=== PATIENT | male | born 1980 | race Caucasian/White ===

== ENCOUNTER 2022-05-05 17:30 | Emergency (ER) | payer BC, SELFPAY ==
[2022-05-05 17:32] VITALS: BP 116/90; PULSE 120; RESP 18; TEMP 39; O2SAT 95; BMI 36.3
[2022-05-05 17:36] VITALS: BP 116/90; PULSE 120; RESP 18; TEMP 39; O2SAT 95
[2022-05-05] MEDS: Acetaminophen 500 MG Tablet 1000 MG PO (18:06)
[2022-05-05 18:39] VITALS: O2SAT 96
--- NOTE | 2022-05-05 20:15 | EKG12_ITS ---
Test Reason : cp Blood Pressure : / mmHG Vent. Rate : 115 BPM Atrial Rate : 115 BPM P-R Int : 144 ms QRS Dur : 098 ms QT Int : 328 ms P-R-T Axes : 062 -60 033 degrees QTc Int : 453 ms Sinus tachycardia Left axis deviation Low voltage QRS (Limb Leads) Abnormal ECG Confirmed by DMITRIY SPARROW, PADILLA ([id number]), newspaper or periodical editor KRIS FERRARI ([id number]) on 05/08/2022 7:57:01 AM Referred By: Irasema Confirmed By:PADILLA IZAGUIRRE MD
--- NOTE | 2022-05-05 20:32 | EX.ED.DYSGE1 ---
HPI History of Present Illness Chief Complaint: Shortness of Breath Informant: patient Narrative Narrative: 3-day history fever headache cough diarrhea myalgias. COVID vaccinated x2 with no booster. States would not allow due to his history of ankylosing spondylitis receiving Cosentyx. diagnosed with COVID 4 days ago. Patient became symptomatic the following day. He is tolerating oral fluids. No COVID infections in the past. No dyspnea. Patient on Cosentyx, hydroxychloroquine, Wellbutrin, duloxetine, prazosin. 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 Arthritis Depression Home Medications nirmatrelvir 300 mg (150 mg x2)-ritonavir 100 mg tablet,dose pack(EUA) (Paxlovid) See Rx Instructions PO .COMPLEX #30 tabs 05/05/22 [Rx Last Taken Unknown] Allergy/AdvReac Type Severity Reaction Status Date / Time Sulfa (Sulfonamide Allergy Rash Verified 05/05/22 17:36 Antibiotics) Social History Smoking Status: Never smoker ROS ROS ED Constitutional Constitutional ED: Reports chills and fever(s); Denies sweats Eyes Eyes: Denies change in vision ENT ENT ED: Denies dysphagia or sore throat Cardiovascular Cardiovascular: Denies chest pain, leg edema, palpitations or racing heartbeat Respiratory/Chest Respiratory/Chest: Reports cough; Denies dyspnea or dyspnea on exertion Gastrointestinal Gastrointestinal: Reports diarrhea; Denies abdominal pain, nausea or vomiting Genitourinary Genitourinary ED: Denies dysuria, hematuria or urinary frequency Musculoskeletal Musculoskeletal: Denies back pain, extremity pain or neck pain Integumentary Denies rash or wounds Neurologic Neurologic: Reports headache(s); Denies paresthesias or weakness EXAM Physical Exam Const Vital Signs: 05/05/22 17:32 05/05/22 17:36 05/05/22 18:39 Temperature 102.2 F H 102.2 F H Temperature Source Oral Oral Pulse Rate 120 H 120 H Respiratory Rate 18 18 Respiratory Effort Normal Respiratory Depth Normal Respiratory Pattern Normal Blood Pressure 116/90 H 116/90 H Blood Pressure Mean 98 98 Pulse Ox 95 95 Oxygen Delivery Method Room Air Room Air Room Air Positive well nourished and well developed General Appearance ED: well developed and NAD HEENT Reports moist mucous membranes normocephalic and atraumatic Eyes PERRL, EOMs intact bilaterally and conjunctivae normal General Eye ED: Yes normal appearance of both eyes Neck no lymphadenopathy and supple Neck Narrative: No meningismus General: Negative for tenderness Chest Wall Chest: Negative for tenderness Resp normal respiratory effort and normal air movement Effort and Inspection: symmetric chest movement; Negative for respiratory distress Cardio regular rate, regular rhythm and no murmurs Peripheral Pulses: pulses 2+ throughout GI normal to inspection, nondistended, normoactive bowel sounds and non-tender Palpation: Negative for guarding or rebound tenderness present Back/Spine no CVA tenderness and no thoracic nor lumbar tenderness Extremity normal to inspection General Extremety ED: Negative for edema or tenderness General Extremity: Negative for edema Neuro oriented x3 and no sensory deficits noted Sensorium / Orientation: awake and alert Skin no rashes or lesions noted and no wounds MDM MDM MDM Narrative Medical decision making narrative: Patient febrile on arrival tachycardic. He is not hypoxic. No respiratory distress. Tylenol given from triage COVID testing obtained which was positive. He is day 3. Immunocompromise. He is a candidate for treatment. He has no history of kidney injury. Reviewed his medications, will hold his prazosin while taking this medications. He is okay with his other medications as reviewed. Return precaution discussed. Continue Tylenol and Motrin at home. All questions were answered. EKG Initial EKG: Attestation: I personally reviewed and interpreted this EKG as follows: Comments: Sinus rate of 115, no ST or T wave changes. Discharge Plan Triage Chief Complaint: Shortness of Breath ED Provider: Ty Villalpando Dx/Rx/DC Orders Clinical Impression: COVID-19 virus infection, History of immunosuppression, History of ankylosing spondylitis, Fever Instructions: Coronavirus Disease 2019 (COVID-19): Caring for Yourself or Others, ED Fever Control (Adult) Prescriptions: New Paxlovid (EUA) 300 mg (150 mg x 2)-100 mg tablets,dose pack See Rx Instructions .ROUTE .COMPLEX Qty: 30 0RF Rx Instructions: take TWO 150 mg tablets of nirmatrelvir with ONE 100 mg tablet of ritonavir twice daily for 5 days Activity Restrictions/Additional Instructions: Hold your prazosin while taking Paxlovid. Continue Tylenol or Motrin. Continue oral fluids for hydration. Take medication as prescribed. Return if any worsening respiratory symptoms. Disposition Disposition: Home, Self Care Discharge Date/Time: 05/05/22 20:50
== END 2022-05-05 20:50 | disposition home or self-care (01) ==
PROVIDERS: Emergency Provider Emergency Medicine; Visit Provider Emergency Medicine
DX: U07.1 COVID-19 (principal); M45.9 Ankylosing spondylitis of unspecified sites in spine; R50.9 Fever, unspecified; Z20.822 Contact with and (suspected) exposure to COVID-19; F32.A Depression, unspecified
CPT/HCPCS: 87428; 93005; 99284

== ENCOUNTER 2024-08-19 10:55 | Emergency (ER) | payer OTHER, SELFPAY ==
[2024-08-19 10:55] VITALS: BP 151/88; PULSE 94; RESP 14; TEMP 36.8; O2SAT 97
--- NOTE | 2024-08-19 11:11 | VDLE_ITS ---
Reason For Study: Pain LLE RIGHT LEFT CFV is compressible, spontaneous, phasic, GSV is normal. competent and demonstrates normal CFV is compressible, spontaneous, phasic, augmentation. competent, and demonstrates normal Procedure augmentation. This is a venous duplex using B-mode, color FV is compressible, spontaneous, phasic, flow and spectral Doppler. competent and demonstrates normal Exam performed portable in ED. augmentation. A preliminary report was called and/or faxed Acute deep vein thrombosis is noted in the to Viki XIAO. POP V. It is dilated and NONCOMPRESSIBLE. Acute deep vein thrombosis is noted in the T/P Trunk. It is dilated and NONCOMPRESSIBLE. Acute deep vein thrombosis is noted in the PTV. It is dilated and NONCOMPRESSIBLE. Acute deep vein thrombosis is noted in the Per V. It is dilated and NONCOMPRESSIBLE. Acute deep vein thrombosis is noted in the SoleusV. It is dilated and NONCOMPRESSIBLE. VL/Venous Duplex US, Unilateral Interpretation Summary Acute deep vein thrombosis is noted in the left popliteal vein, tibioperoneal t runk vein, posterior tibial vein, peroneal vein, soleus vein. Ordering Physician: Viki Stone Performed By: Tessie Lopez, AMY, RVT
--- NOTE | 2024-08-19 11:12 | ED.VIS.LOWEX ---
HPI <NINOSKA Rojas - Last Filed: 08/19/24 14:31> History of Present Illness Chief Complaint: Lower Extremity Injury Narrative Narrative: Patient presenting today with concerns for a blood clot to his left lower extremity. He reports that over the past 3 to 4 days he has had pain in his left calf that radiates to the posterior aspect of his left knee. 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 He recently had a bone marrow aspirate concentrate injection into his left ankle due to only history of repeated left ankle injuries and chronic left ankle pain. The bone marrow was taken from his left perez and this was performed 3 weeks ago at the [facility] by Dr. Slaughter. He denies any fevers, chills, chest pain, shortness of breath. PFSH <NINOSKA Rojas - Last Filed: 08/19/24 14:31> [facility] Medical History (Updated 08/19/24 @ 14:[address] 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 Home Medications ?Medication ?Instructions ?Recorded ?Last Taken ?Type nirmatrelvir 300 mg (150 mg See Rx Instructions PO .COMPLEX 05/05/22 Unknown Rx x2)-ritonavir 100 mg tablet,dose #30 tabs pack (Paxlovid) apixaban 5 mg (74 tabs) tablets in See Rx Instructions PO .COMPLEX 08/19/24 Unknown Rx a dose pack (Eliquis DVT-PE Treat #74 tabs 30D Start) hydrocodone-acetaminophen 5-325mg 1 tab PO Q4H PRN PRN Pain 3 days 08/19/24 Unknown Rx 5mg-325mg #10 TABLETS Allergy/AdvReac Type Severity Reaction Status Date / Time Sulfa (Sulfonamide Allergy Rash Verified 08/19/24 10:56 Antibiotics) Surgical History (Updated 08/19/24 @ 11:20 by Gloria Ross) H/O arthroscopy Social History Smoking Status: Never smoker ROS <NINOSKA Rojas - Last Filed: 08/19/24 14:31> ROS ED Constitutional Constitutional ED: Denies chills or fever(s) Cardiovascular Cardiovascular: Denies chest pain Respiratory/Chest Respiratory/Chest: Denies dyspnea Gastrointestinal Gastrointestinal: Denies abdominal pain, nausea or vomiting Musculoskeletal Musculoskeletal: Reports myalgias Integumentary Denies rash Neurologic Neurologic: Denies paresthesias EXAM <NINOSKA Rojas - Last Filed: 08/19/24 14:31> Physical Exam Const Vital Signs: 08/19/24 10:55 08/19/24 12:47 Temperature 98.3 F 98.2 F Temperature Source Temporal Pulse Rate 94 81 Respiratory Rate 14 18 Blood Pressure 151/88 H 125/72 H Blood Pressure Mean 109 89 Pulse Ox 97 99 Oxygen Delivery Method Room Air Positive well nourished, well developed and no apparent distress General Appearance ED: well developed HEENT Reports normocephalic and head/scalp atraumatic Mouth ED: Yes moist mucous membranes normal Eyes PERRL and EOMs intact bilaterally Neck full ROM and supple Chest Wall inspection of chest normal Resp normal respiratory effort and clear to auscultation bilaterally Cardio regular rate and regular rhythm Back/Spine normal ROM and normal to inspection Extremity normal to inspection and full ROM Extremity Narrative: Positive Homans' sign on the left, no asymmetric edema to the bilateral lower extremities, no erythema, no palpable cord, left DP pulse 2+, good cap refill, sensation intact. Neuro oriented x3, CN's II-XII intact bilaterally, moves all extremities, no focal motor deficits and no sensory deficits noted Sensorium / Orientation: awake and alert Psych mental status grossly normal and thought process normal Skin no rashes or lesions noted and no wounds <Dr. Melvin Nagy MD - Last Filed: 08/19/24 14:36> Physical Exam Const Vital Signs: 08/19/24 10:55 08/19/24 12:47 Temperature 98.3 F 98.2 F Temperature Source Temporal Pulse Rate 94 81 Respiratory Rate 14 18 Blood Pressure 151/88 H 125/72 H Blood Pressure Mean 109 89 Pulse Ox 97 99 Oxygen Delivery Method Room Air MDM <NINOSKA Rojas - Last Filed: 08/19/24 14:31> [facility] MDM Narrative Medical decision making narrative: Patient presenting today with pain in his left lower extremity and has concerns for DVT. He has been immobilized in bed except for showering, eating, and going to the bathroom after having a bone marrow injection in his left ankle 3 weeks ago. He thinks that he has a clotting disorder. He does not complain of any chest pain or shortness of breath. He otherwise is well-appearing and in no acute distress. No findings of infection on exam. Venous duplex ultrasound obtained and shows a DVT from the popliteal vein down to the ankle. I did speak with Dr. Slaughter, he is comfortable with patient receiving Eliquis and he was given first dose here. He does not have any history of kidney disease. He was also given [place] for pain. I recommended he follow-up closely with his PCP. He will be discharged home in stable condition. I have personally performed a face to face assessment of the patient and have reviewed the EVER Note. I performed a substantive portion of the visit including all aspects of the following. My chavez findings include: History is remarkable for recent ankle surgery, 3 weeks ago. Patient presents because of pain in the proximal calf popliteal fossa. Patient presently denies pleuritic chest pain. He states over the last weeks had slight shortness of breath. He has also been less active and lying around . He states he is applying ice like he was instructed. He denies fever, chills night sweats. There is no history of trauma. Exam is vital signs are remarkable for an elevated blood pressure. Is not tachycardic, tachypneic or hypoxic. There is pain to palpation to popliteal fossa and proximal calf. There may be slight swelling. There is no discoloration. There is no obvious leg vein distention. There was no palpable cords. PT pulses palpable. Port sites noted as well as bone marrow graft site. There is no concern for infection. Medical Decision Making pretest probability is moderate to high for DVT. For this reason venous duplex study was obtained to evaluate for DVT. Other additions or changes: [None] <Dr. Melvin Nagy MD - Last Filed: 08/19/24 14:36> [facility] Narrative Medical decision making narrative: Patient presenting today with pain in his left lower extremity and has concerns for DVT. He has been immobilized in bed except for showering, eating, and going to the bathroom after having a bone marrow injection in his left ankle 3 weeks ago. He thinks that he has a clotting disorder. He does not complain of any chest pain or shortness of breath. He otherwise is well-appearing and in no acute distress. No findings of infection on exam. Venous duplex ultrasound obtained and shows a DVT from the popliteal vein down to the ankle. I did speak with Dr. Slaughter, he is comfortable with patient receiving Eliquis and he was given first dose here. He does not have any history of kidney disease. He was also given [place] for pain. I recommended he follow-up closely with his PCP. He will be discharged home in stable condition. I have personally performed a face to face assessment of the patient and have reviewed the EVER Note. I performed a substantive portion of the visit including all aspects of the following. My chavez findings include: History is remarkable for recent ankle surgery, 3 weeks ago. Patient presents because of pain in the proximal calf popliteal fossa. Patient presently denies pleuritic chest pain. He states over the last weeks had slight shortness of breath. He has also been less active and lying around . He states he is applying ice like he was instructed. He denies fever, chills night sweats. There is no history of trauma. Exam is vital signs are remarkable for an elevated blood pressure. Is not tachycardic, tachypneic or hypoxic. There is pain to palpation to popliteal fossa and proximal calf. There may be slight swelling. There is no discoloration. There is no obvious leg vein distention. There was no palpable cords. PT pulses palpable. Port sites noted as well as bone marrow graft site. There is no concern for infection. Medical Decision Making pretest probability is moderate to high for DVT. For this reason venous duplex study was obtained to evaluate for DVT. Other additions or changes: Dr. Slaughter the orthopedist who performed the procedure at [facility] was made aware. Discharge Plan Triage Chief Complaint: Lower Extremity Injury ED Midlevel Provider: Viki Stone ED Provider: Melvin Nagy Dx/Rx/DC Orders Clinical Impression: Acute deep vein thrombosis (DVT) of popliteal vein of left lower extremity, Acute deep vein thrombosis (DVT) of left lower extremity, Elevated blood-pressure reading without diagnosis of hypertension Instructions: DVT Dc Prescriptions: New Eliquis DVT-PE Treat 30D Start 5 mg (74 tabs) tablets,dose pack See Rx Instructions .ROUTE .COMPLEX Qty: 74 0RF Rx Instructions: orally per package directions hydrocodone-acetaminophen 5-325 mg tablet 1 tab PO Q4H PRN PRN (Reason: Pain) 3 Days Qty: 10 0RF No Action Paxlovid 300 mg (150 mg x 2)-100 mg tablets,dose pack See Rx Instructions .ROUTE .COMPLEX Qty: 30 0RF Rx Instructions: take TWO 150 mg tablets of nirmatrelvir with ONE 100 mg tablet of ritonavir twice daily for 5 days Primary Care Provider: Nadya Grimes Activity Restrictions/Additional Instructions: Follow-up with your PCP and Dr. Slaughter. Return for any other concerns. Print Language: Faroese Disposition Disposition: Home, Self Care Discharge Date/Time: 08/19/24 12:58
[2024-08-19 11:20] VITALS: BMI 39.9
[2024-08-19] MEDS: APIXABAN 5 MG TABLET 10 MG PO (12:42)
[2024-08-19] MEDS: HYDROcodone Bitartrate/Apap 5/325 Tablet PO (12:43)
[2024-08-19 12:47] VITALS: BP 125/72; PULSE 81; RESP 18; TEMP 36.8; O2SAT 99
== END 2024-08-19 12:58 | disposition home or self-care (01) ==
PROVIDERS: Emergency Provider Emergency Medicine; PCP Family Medicine; Visit Provider Emergency Medicine
DX: I82.432 Acute embolism and thrombosis of left popliteal vein (principal); R03.0 Elevated blood-pressure reading, without diagnosis of hypertension
CPT/HCPCS: 93971; 99283

== ENCOUNTER 2025-02-17 16:50 | Emergency (ER) | payer OTHER, SELFPAY ==
[2025-02-17] VITALS (7 sets, daily range): BP systolic 105–133; BP diastolic 74–102; PULSE 81–107; RESP 16–25; TEMP 36.6–37.1; O2SAT 95–99; BMI 40.3
--- NOTE | 2025-02-17 18:27 | EKG12_ITS ---
Test Reason : CP Blood Pressure : */* mmHG Vent. Rate : 97 BPM Atrial Rate : 97 BPM P-R Int : 148 ms QRS Dur : 106 ms QT Int : 364 ms P-R-T Axes : 56 -54 53 degrees QTcB Int : 462 ms Sinus rhythm with sinus arrhythmia with occasional Premature ventricular complexes Left axis deviation Abnormal ECG Confirmed by RADHA SPARROW, MADDI ([id number]), editor department KRIS FERRARI ([id number]) on 02/20/2025 7:39:28 AM Referred By: PRITI/IRISH Confirmed By: MADDI GARCIA MD
--- NOTE | 2025-02-17 18:30 | RAD_ITS ---
PROCEDURE: CHEST 1 VIEW (PORTABLE) 02/17/2025 REASON FOR EXAM: CHEST PAIN TECHNIQUE: Frontal view of the chest. COMPARISON: None. FINDINGS: Hardware: None. Heart: The heart size is normal. Lungs: No focal consolidation, pleural effusion or pneumothorax. Bones: The bones are unremarkable. RAD/Chest 1 View (Portable) IMPRESSION: Negative Chest. Reading Location: [id number]
[2025-02-17 18:40] LABS: Absolute Lymphocyte Count 2.32 X10^3/uL (0.83-4.51); Absolute Neutrophil Count 3.8 X10^3/uL (2.0-7.7); Basophil# 0.05 X10^3/uL; Basophil% 0.7 % (0-1); Eosinophil# 0.07 X10^3/uL; Hemoglobin 14.4 g/dL (13.0-16.5); Lymphocyte # 2.32 X10^3/ul (0.83-4.51); Lymphocyte % 34.3 % (19-41); Mean Corp Hgb Conc 33.5 g/dL (32-36); Mean Corpuscular Hgb 29.3 pg (27.0-32.0); Mean Corpuscular Volume 87.4 fL (80-94); Mean Platelet Vol. 9.6 fl (6.2-12.0); Monocyte# 0.53 X10^3/uL; Monocyte% 7.8 % (0-10); NRBC Flagged by Analyzer 0 % (0-5); Neutrophil # 3.77 X10^3/uL (2.7-7.7); Neutrophil % 55.9 % (47-70); Platelet Count 282 K/mm3 (150-450); RBC Distribution Width CV 13.3 % (11.6-14.6); RBC Distribution Width SD 42.5 fl (35.1-43.9); Red Blood Count 4.92 M/mm3 (4.6-6.2); White Blood Count 6.8 K/mm3 (4.4-11.0)
[2025-02-17 19:08] LABS: Anion Gap 14 (5-15); BUN 14 mg/dL (4-19); BUN/Creat Ratio 12.2 RATIO (10-20); Calcium,Total 9.5 mg/dL (7.6-11.0); Carbon Dioxide 20.8 mmol/L (21.0-32.0); Chloride 105 mmol/L (98-108); Creatinine, Serum 1.15 mg/dL (0.70-1.20); EST Glomerular Filtration Rate 79 (>60); Estimated Creatinine Clearance 104.43 ml/min (50-250); Glucose 156 mg/dL (70-99); Potassium 4.1 mmol/L (3.3-5.1); Sodium Level 140 mmol/L (133-145); Troponin T High Sensitivity < 6 ng/L (<=22)
--- NOTE | 2025-02-17 19:14 | CT_ITS ---
PROCEDURE: CTA HEAD AND NECK W/ CONTRAST 02/17/2025 REASON FOR EXAM: DIZZINESS HEADACHE TECHNIQUE: CTA HEAD AND NECK W/ CONTRAST Multiplanar and multisequence images were obtained. CONTRAST: Isovue 370 VOLUME: 100 mL One or more dose reduction techniques were used (e.g., Automated exposure control, adjustment of the mA and/or kV according to patient size, use of iterative reconstruction technique). RADIATION DOSE SUMMARY: CTDlvol: 100 mGy DLP: 1700 mGycm COMPARISON: None. FINDINGS: Noncontrast CT head: No acute intracranial hemorrhage or herniation. The iqbal-white matter interfaces are maintained. The ventricles and subarachnoid spaces are normal for patient age. The basal cisterns are patent. The bilateral orbits are unremarkable. The visualized paranasal sinuses and mastoid air cells are well-aerated. No acute calvarial fracture or scalp hematoma. CTA neck: Standard three-vessel aortic arch with minimal mixed calcific plaque. The bilateral vertebral artery origins are widely patent. The bilateral cervical carotid arteries are widely patent without focal narrowing by NASCET criteria. CTA head: The bilateral anterior, middle and posterior cerebral arteries are widely patent. The basilar artery is patent. No aneurysm or AVM. Major venous structures: Unremarkable. Other findings: The biapical lungs are clear. Mild cervical spondylosis. CT/CTA Head AND Neck W/ Contrast IMPRESSION: 1. No acute intracranial finding on noncontrast examination. 2. No large vessel occlusion, aneurysm or AVM. Reading Location: [id number]
--- NOTE | 2025-02-17 19:15 | EX.ED.DYSGE1 ---
HPI History of Present Illness Chief Complaint: Chest Pain Informant: patient and spouse/S.O. Narrative Narrative: 44-year-old male presenting to the emergency room with chief complaint of lightheadedness and chest pressure. Patient states that he was having a relatively normal day. He went upstairs to get something and suddenly felt very lightheaded and weak. He states that he felt like he might pass out. He noted that his hearing in his ears was altered and developed a pressure/headache in the occiput. He states he was sweaty and a little bit nauseous. States his symptoms of lightheadedness have been intermittent since but the last since. He is on apixaban for prior DVT and has a history of factor V Leiden. He denies any palpitations. He denies any arm or leg weakness. 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 Home Medications ?Medication ?Instructions ?Recorded ?Last Taken ?Type apixaban 5 mg tablet (Eliquis) 5 mg PO BID 02/17/25 02/17/25 History bupropion HCl 150 mg 24 hr tablet, 150 mg PO DAILY 02/17/25 02/17/25 History extended release duloxetine 30 mg capsule,delayed 30 mg PO TID 02/17/25 02/17/25 History release Allergy/AdvReac Type Severity Reaction Status Date / Time Sulfa (Sulfonamide Allergy Rash Verified 02/17/25 16:52 Antibiotics) Family History no significant family his Surgical History H/O arthroscopy Social History Smoking Status: Never smoker ROS ROS ED ROS Narrative Lightheadedness Constitutional Constitutional ED: Denies chills or weight loss Eyes Eyes: Denies change in vision or diplopia ENT ENT ED: Reports other Details: Increased tinnitus today with sudden decrease in hearing ; Denies ear pain, rhinorrhea or sore throat Cardiovascular Cardiovascular: Reports chest pain; Denies orthopnea, palpitations or racing heartbeat Respiratory/Chest Respiratory/Chest: Denies cough, dyspnea or orthopnea Gastrointestinal Gastrointestinal: Reports nausea; Denies abdominal pain, diarrhea or vomiting Genitourinary Genitourinary ED: Denies dysuria, hematuria or urinary frequency Musculoskeletal Musculoskeletal: Denies arthralgias or myalgias Integumentary Reports other Details: Diaphoresis ; Denies abscess or rash Neurologic Neurologic: Reports headache(s); Denies paresthesias or weakness Psychiatric Psychiatric: Denies anxiety, depression, suicidal ideation or suicidal thoughts Endocrine Endocrinology: Denies polydipsia, polyphagia or polyuria Allergic/Immunologic Allergic/Immunologic ED: Denies mouth swelling, tongue swelling or urticaria EXAM Physical Exam Const Vital Signs: 02/17/25 16:50 02/17/25 17:03 02/17/25 17:50 Temperature 98 F Temperature Source Temporal Pulse Rate 107 H 99 Respiratory Rate 19 H Respiratory Effort Normal Non-Labored Blood Pressure 133/102 H 118/85 H Blood Pressure Mean 112 96 Pulse Ox 97 95 Oxygen Delivery Method Room Air Room Air 02/17/25 18:00 02/17/25 18:31 02/17/25 18:55 Temperature Temperature Source Pulse Rate 99 94 Respiratory Rate 16 Respiratory Effort Blood Pressure 118/85 H 105/80 Blood Pressure Mean 96 88 Pulse Ox 95 99 Oxygen Delivery Method Room Air Room Air Room Air 02/17/25 20:00 02/17/25 21:00 02/17/25 21:29 Temperature 98.8 F Temperature Source Pulse Rate 89 87 81 Respiratory Rate 25 H 19 H 23 H Respiratory Effort Blood Pressure 107/74 120/76 113/81 H Blood Pressure Mean 85 90 91 Pulse Ox 98 96 95 Oxygen Delivery Method Room Air Room Air Positive well nourished and well developed General Appearance ED: well developed HEENT Reports normocephalic, head/scalp atraumatic and moist mucous membranes Eyes PERRL and EOMs intact bilaterally Neck no lymphadenopathy, supple and no JVD Resp normal respiratory effort and clear to auscultation bilaterally Cardio regular rate, regular rhythm and no murmurs GI normal to inspection, nondistended, normoactive bowel sounds and non-tender Palpation: soft Back/Spine no CVA tenderness and normal ROM Extremity normal to inspection General Extremety ED: Negative for edema General Extremity: Negative for edema Neuro oriented x3 and CN's II-XII intact bilaterally Sensorium / Orientation: alert Motor Exam: strength 5/5 throughout Psych mental status grossly normal Mood & Affect: Negative for depressed or tearful Skin no rashes or lesions noted and no wounds MDM MDM MDM Narrative Medical decision making narrative: Differential diagnosis includes but not limited to anemia dehydration acute coronary syndrome cardiac dysrhythmia aneurysm of the brain carotid stenosis stroke TIA vertigo Patient's EKG is a sinus rhythm with occasional PVC at a ventricular rate of 97 bpm. 2 sets of cardiac enzymes are negative. Glucose 156. Creatinine normal at 1.15. White count 6.8 hemoglobin 14.4 platelet count of 282. My independent interpretation of the chest x-ray is no acute process. CT a of the head and neck shows no acute findings such as aneurysm dissection LVO or AVM. Patient's had no events on the monitor. He received IV fluids. Repeat examination finds the patient to be doing well. He is normotensive. At this point I do not have a clear etiology for the patient's symptomology but I feel he can be discharged home. He was given precautions. Should symptomology return I asked that he either return to emergency or follow-up with his primary care doctor. We talked about cardiac dysrhythmias GI bleeding and other possible etiologies. History & Record Review Discussion w/independent historian: Patient and Significant other Additional record(s) reviewed:: Prior ED visit and Prior labs Lab Data Attestation: I reviewed the patient's lab results. Labs: Laboratory Results - last 24 hr 02/17/25 02/17/25 17:05 19:15 WBC 6.8 RBC 4.92 Hgb 14.4 Hct 43.0 MCV 87.4 MCH 29.3 MCHC 33.5 RDW Std Deviation 42.5 RDW Coeff of Tin 13.3 Plt Count 282 MPV 9.6 Immature Gran % (Auto) 0.300 Neut % (Auto) 55.9 Lymph % (Auto) 34.3 Ogle % (Auto) 7.8 Eos % (Auto) 1.0 Baso % (Auto) 0.7 Absolute Neuts (auto) 3.8 Absolute Lymphs (auto) 2.32 Nucleated RBC % 0 Sodium 140 Potassium 4.1 Chloride 105 Carbon Dioxide 20.8 L Anion Gap 14 BUN 14 Creatinine 1.15 Estim Creat Clear Calc 104.43 Est GFR (MDRD) Non-Af 79 BUN/Creatinine Ratio 12.2 Glucose 156 H Calcium 9.5 Troponin T High Sens < 6 Troponin T Hi Sens 2 Hr < 6 Radiography Diagnostic Testing: Clinical Impression(s) from Imaging Studies Chest X-Ray 02/17/25 18:30 IMPRESSION: Negative Chest. Reading Location: [facility] Head/Neck CTA 02/17/25 19:14 IMPRESSION: 1. No acute intracranial finding on noncontrast examination. 2. No large vessel occlusion, aneurysm or AVM. Reading Location: [facility] EKG Initial EKG: Attestation: I personally reviewed and interpreted this EKG as follows: Comments: Sinus with PVCs ventricular rate of 97 bpm Discharge Plan Triage Chief Complaint: Chest Pain ED Provider: Curry Ruiz Dx/Rx/DC Orders Clinical Impression: Near syncope, Episodic lightheadedness Instructions: ED About Arrhythmias, ED Near-Fainting, Uncertain Cause Prescriptions: No Action bupropion HCl 150 mg tablet extended release 24 hr 150 mg PO DAILY duloxetine 30 mg capsule,delayed release(DR/EC) 30 mg PO TID Eliquis 5 mg tablet 5 mg PO BID Primary Care Provider: Nadya Grimes Referrals: Nadya Grimes MD [Primary Care Provider] - As Needed Print Language: Latvian Disposition Disposition: Home, Self Care Discharge Date/Time: 02/17/25 21:32
--- OUTSIDE RECORDS SUMMARY | 2025-02-17 19:29 | XMS RPT_ITS | CCD ---
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 persistence. The Systemic Lupus International [facility] immunological classification criteria for systemic lupus erythematosus (SLE) include testing for isotype IgA, which has yet to be incorporated into APS criteria. Low level antiphospholipid antibodies may sometimes be detected in the setting of infection, drug therapy or aging. For additional information, please refer to http://education.Taodangpu.Savored/faq/LYB761 (This link is being provided for informational/ educational purposes only.) Performed By: #### 7 916, 7811, 28958 #### [facility] [employer] [address], [address] [place] [address] Piano Case [employer] Bench Assembler: Ben Ramirez MD #### 44348, 32566 #### [facility], [address] [place] [address] Piano Case [employer] Bench Assembler: Melissa Hernandez MD,PhD,MATEO #### 89580 #### [facility]/[address] [place], [place] [employer] Bench Assembler: Ebenezer Cedeno M.D.,PhD B2 GLYCOPROTEIN I (IGG)AB <2.0 Normal <20.0 [facility] Comment on above: Order Comment: FASTI NG:NO FASTING: NO Result Comment: Value Interpretation ----- < 20.0 Antibody not detected > or = 20.0 Antibody detected Performed By: #### 7 061, 4921, 50867 #### [facility] [address], [address] [place], [place] [id number] [employer] Case [employer] Bench Assembler: Ben Ramirez MD #### 85398, 64202 #### [facility]/[address] [address] Piano Case [employer] Bench Assembler: Melissa Hernandez MD,PhD,MATEO #### 62886 #### [facility]/[place] [id number] [facility] [place], [place] [employer] Bench Assembler: Ebenezer Cedeno M.D.,PhD B2 GLYCOPROTEIN I (IGM)AB <2.0 Normal <20.0 [facility] Comment on above: Order Comment: FASTI NG:NO FASTING: NO Result Comment: Value Interpretation ----- < 20.0 Antibody not detected > or = 20.0 Antibody detected Performed By: #### 7 014, 4792, 15380 #### [facility] [address], [address] [place] [address] Piano Case [employer] Bench Assembler: Ben Ramirez MD #### 50407, 02235 #### [facility], [address] [place] [address] Piano Case And Bench Assembler: Melissa Hernandez MD,PhD,MATEO #### 33761 #### [facility] [address] [place] [address] [place], [place] [employer] Bench Assembler: Ebenezer Cedeno M.D.,PhD CARDIOLIPIN AB (IGA,IGG,IGM) on 11-27-2024 CARDIOLIPIN AB (IGA) 2.1 APL-U/mL Normal [facility] Comment on above: Result Comment: Valu e Interpretation ----- < 20.0 Antibody not detected > or = 20.0 Antibody detected Performed By: #### 7 352, 8843, 90811 #### [facility] [address], [address] [place] [address] Piano Case And Bench Assembler: Ben Ramirez MD #### 29981, 94567 #### [facility], [address] [place] [address] Piano Case And Bench Assembler: Melissa Hernandez MD,PhD,MATEO #### 25611 #### [facility] [place] P[employer] Case [employer] Bench Assembler: Ebenezer Cedeno M.D.,PhD CARDIOLIPIN AB (IGG) <2.0 Normal [facility] Comment on above: Result Comment: Valu e Interpretation ----- < 20.0 Antibody not detected > or = 20.0 Antibody detected Performed By: #### 7 386, 912, 22568 #### [facility] [address], [address] [place] [address] Piano Case And Bench Assembler: Ben Ramirez MD #### 16041, 98378 #### [facility], [address] [place] [address] Piano Case And Bench Assembler: Melissa Hernandez MD,PhD,MATEO #### 16911 #### [facility] [address] [facility] [address] [place] P[employer] Case [employer] Bench Assembler: Ebenezer Cedeno M.D.,PhD CARDIOLIPIN AB (IGM) <2.0 Normal [facility] Comment on above: Result Comment: Valu e Interpretation ----- < 20.0 Antibody not detected > or = 20.0 Antibody detected The antiphospholipid antibody syndrome (APS) is a clinical-pathologic correlation that includes a clinical event (e.g. arterial or venous thrombosis, morbidity) and persistent positive antiphospholipid antibodies (IgM, IgG Cardiolipin or b2GPI antibodies greater than the 99th percentile; or a lupus anticoagulant). International consensus guidelines for APS suggest waiting at least 12 weeks before retesting to confirm antibody persistence. The [facility] Lup[facility] International [facility] immunological classification criteria for systemic lupus erythematosus (SLE) include testing for isotype IgA, which has yet to be incorporated into APS criteria. Low level antiphospholipid antibodies may sometimes be detected in the setting of infection, drug therapy or aging. For additional information, please refer to http://education.Stockdrift/faq/DBR507 (This link is being provided for informational/ educational purposes only.) Performed By: #### 7 458, 5751, 77679 #### [facility] [address], [address] [place] [address] Piano Case [employer] Bench Assembler: Ben Ramirez MD #### 08976, 88219 #### [facility], [address] [place] [address] Piano Case And Bench Assembler: Melissa Hernandez MD,PhD,MATEO #### 78459 #### [facility] [address] [facility] [address] [place], [place] P[employer] Case [employer] Bench Assembler: Ebenezer Cedeno M.D.,PhD CBC (H/H, RBC, INDICES, WBC, PLT)on 11-27-2024 Erythrocyte distribution width (RBC) [Ratio] 13.0 % Normal 11.0-15.0 [facility] Comment on above: Performed By: #### 7 352, 175, 39184 #### [facility] of [address], [address] [place] [address] Piano Case [employer] Bench Assembler: Ben Ramirez MD #### 46245, 25869 #### [facility], [address] [place] [address] Piano Case And Bench Assembler: Melissa Hernandez MD,PhD,MATEO #### 56580 #### [facility]/[place] [address] [facility] [place] [employer] Case [employer] Bench Assembler: Ebenezer Cedeno M.D.,PhD Hematocrit (Bld) [Volume fraction] 44.4 % Normal 38.5-50.0 [facility] Comment on above: Performed By: #### 7 352, 1758, 84464 #### [facility] of [address], [address] [place] [address] Piano Case And Bench Assembler: Ben Ramirez MD #### 20555, 06984 #### [facility], [address] [place] [address] Piano Case And Bench Assembler: Melissa Hernandez MD,PhD,MATEO #### 56789 #### [facility] [address] [facility] [place], [place] [employer] Case [employer] Bench Assembler: Ebenezer Cedeno M.D.,PhD Hemoglobin (Bld) [Mass/Vol] 15.1 g/dL Normal 13.2-17.1 [facility] Comment on above: Performed By: #### 7 352, 175, 02926 #### [facility] of [address], [address] [place] [address] Piano Case [employer] Bench Assembler: eBn Ramirez MD #### 65297, 95049 #### [facility], [address] [place], [place] [employer] Case [employer] Bench Assembler: Melissa Hernandez MD,PhD,MATEO #### 63291 #### [facility] [place] [employer] Case [employer] Bench Assembler: Ebenezer Cedeno M.D.,PhD MCH (RBC) [Entitic mass] 29.5 pg Normal 27.0-33.0 [facility] Comment on above: Performed By: #### 7 352, 175, 29915 #### [facility] [address], [address] [place] [address] Piano Case [employer] Bench Assembler: Ben Ramirez MD #### 45589, 08076 #### [facility], [address] [place], [place] [employer] Case [employer] Bench Assembler: Melissa Hernandez MD,PhD,MATEO #### 45902 #### [facility] [place] P[employer] Case [employer] Bench Assembler: Ebenezer Cedeno M.D.,PhD MCHC (RBC) [Mass/Vol] 34.0 g/dL Normal 32.0-36.0 [facility] Comment on above: Result Comment: For adults, a slight decrease in the calculated MCHC value (in the range of 30 to 32 g/dL) is most likely not clinically significant; however, it should be interpreted with caution in correlation with other red cell parameters and the patient's clinical condition. Performed By: #### 7 352, 032, 56709 #### [facility] [address], [address] [place] [address] Piano Case [employer] Bench Assembler: Ben Ramirez MD #### 70401, 49776 #### [facility], [address] [place] [employer] Bench Assembler: Melissa Hernandez MD,PhD,MATEO #### 63523 #### [facility]/[place] [id number] [facility] [address] [place] [employer] Assembler: Ebenezer Cedeno M.D.,PhD MCV (RBC) [Entitic vol] 86.7 fL Normal 80.0-100.0 [facility] Comment on above: Performed By: #### 7 352, 175, 21256 #### [facility] [address], [address] [place] [address] Piano Case And Bench Assembler: Ben Ramirez MD #### 90703, 96712 #### [facility], [address] [place] Piano Case And Bench Assembler: Melissa Hernandez MD,PhD,MATEO #### 62282 #### [facility]/[place] [address] [facility] [place] [employer] Bench Assembler: Ebenezer Cedeno M.D.,PhD Platelet mean volume (Bld) [Entitic vol] 9.7 fL Normal 7.5-12.5 [facility] Comment on above: Performed By: #### 7 352, 175, 02250 #### [facility] [address], [address] [place] [address] Piano Case And Bench Assembler: Ben Ramirez MD #### 62411, 54920 #### [facility], [address] [employer], [place] [employer] Bench Assembler: Melissa Hernandez MD,PhD,MATEO #### 79474 #### [facility]/[place] [address] [facility] [address] [place] [employer] Assembler: Ebenezer Cedeno M.D.,PhD Platelets (Bld) [#/Vol] 294 10*3/uL Normal 140-400 [facility] Comment on above: Performed By: #### 7 352, 1759, 54232 #### [facility] of [place] [address], [address] [place], [place] [id number] [employer]iano Case [employer] Bench Assembler: Ben Ramirez MD #### 99562, 72668 #### [facility], [address] [place], [place] [employer] Bench Assembler: Melissa Hernandez MD,PhD,MATEO #### 04741 #### [facility]/[address] [place], [place] [employer] Bench Assembler: Ebenezer Cedeno M.D.,PhD RBC (d) [#/Vol] 5.12 10*6/uL Normal 4.20-5.80 [facility] Comment on above: Performed By: #### 7 352, 175, 65684 #### [facility] of [place] [address], [address] [place], [place] [address] Piano Case [employer] Bench Assembler: Ben Ramirez MD #### 93694, 11979 #### [facility], [address] [place], [place] [employer] Bench Assembler: Melissa Hernandez MD,PhD,MATEO #### 64650 #### [facility]/[address] [place], [place] [employer] Bench Assembler: Ebenezer Cedeno M.D.,PhD WBC (d) [#/Vol] 7.3 10*3/uL Normal 3.8-10.8 [facility] Comment on above: Performed By: #### 7 352, 1759, 37870 #### [facility] of [place] [address], [address] [place] [address] Piano Case And Bench Assembler: Ben Ramirez MD #### 63698, 12751 #### [facility], [address] [place], [place] [employer] Bench Assembler: Melissa Hernandez MD,PhD,MATEO #### 16865 #### [facility]/[address] [place] [employer] Bench Assembler: Ebenezer Cedeno M.D.,PhD COMPREHENSIVE METABOLIC PANE L W/ANION GAPon 11-27-2024 Albumin [Mass/Vol] 4.5 g/dL Normal 3.6-5.1 [facility] Comment on above: Performed By: #### 7 352, 175, 48230 #### [facility] of [place] [address] [facility], [address] [place], [place] [id number] [employer] Bench Assembler: Ben Ramirez MD #### 84899, 16246 #### [facility], [address] [place] [employer] Bench Assembler: Melissa Hernandez MD,PhD,MATEO #### 50871 #### [facility]/[address] [place], [place] [employer] Bench Assembler: Ebenezer Cedeno M.D.,PhD ALP [Catalytic activity/Vol] 61 U/L Normal 36-130 [facility] Comment on above: Performed By: #### 7 352, 267, 31540 #### [facility] [address], [address] [place], [place] [id number] [employer] Case [employer] Bench Assembler: Ben Ramirez MD #### 50034, 77738 #### [facility], [address] [place] P[employer] Case [employer] Bench Assembler: Melissa Hernandez MD,PhD,MATEO #### 49747 #### [facility]/[place] [address] [facility] [address] [place], [place] [employer] Case [employer] Bench Assembler: Ebenezer Cedeno M.D.,PhD ALT [Catalytic activity/Vol] 76 U/L High 9-46 [facility] Comment on above: Performed By: #### 7 352, 175, 43549 #### [facility] of [place] [address] , [address] [place] [address] Piano Case And Bench Assembler: Ben Ramirez MD #### 25547, 83244 #### [facility], [address] [place], [place] [employer] Case And Bench Assembler: Melissa Hernandez MD,PhD,MATEO #### 66220 #### [facility]/[address] [place], [place] [employer] Case [employer] Bench Assembler: Ebenezer Cedeno M.D.,PhD AST [Catalytic activity/Vol] 37 U/L Normal 10-40 [facility] Comment on above: Performed By: #### 7 352, 175, 37680 #### [facility] of [place] [address] , [address] [place], [place] [address] Piano Case And Bench Assembler: Ben Ramirez MD #### 71554, 10606 #### [facility], [address] [place] [employer] Bench Assembler: Melissa Hernandez MD,PhD,MATEO #### 03404 #### [facility]/[address] [place], [place] [employer] Case [employer] Bench Assembler: Ebenezer Cedeno M.D.,PhD Bilirubin [Mass/Vol] 0.2 mg/dL Normal 0.2-1.2 [facility] Comment on above: Performed By: #### 7 352, 175, 30895 #### [facility] of [place] [address] , [address] [place] [address] Piano Case And Bench Assembler: Ben Ramirez MD #### 01046, 16718 #### [facility], [address] [place] [address] Piano Case And Bench Assembler: Melissa Hernandez MD,PhD,MATEO #### 11963 #### [facility] [place] [address] [facility] [address] [place] P[employer] Case [employer] Bench Assembler: Ebenezer Cedeno M.D.,PhD Calcium [Mass/Vol] 9.7 mg/dL Normal 8.6-10.3 [facility] Comment on above: Performed By: #### 7 352, 1759, 07009 #### [facility] [address], [address] [place] [address] Piano Case And Bench Assembler: Ben Ramirez MD #### 26094, 14561 #### [facility], [address] [place] [employer] Bench Assembler: Melissa Hernandez MD,PhD,MATEO #### 60636 #### [facility] [place] P[employer] Case And Bench Assembler: Ebenezer Cedeno M.D.,PhD Chloride [Moles/Vol] 105 mmol/L Normal 98-110 [facility] Comment on above: Performed By: #### 7 352, 402, 46836 #### [facility] [address], [address] [place] [address] Piano Case And Bench Assembler: Ben Ramirez MD #### 38043, 57476 #### [facility], [address] [place] P[employer] Case And Bench Assembler: Melissa Hernandez MD,PhD,MATEO #### 48553 #### [facility] [address] [place] P[employer] Case [employer] Bench Assembler: Ebenezer Cedeno M.D.,PhD CO2 [Moles/Vol] 28 mmol/L Normal 20-32 [facility] Comment on above: Performed By: #### 7 352, 175, 57021 #### [facility] [address], [address] [place] [address] Piano Case [employer] Bench Assembler: Ben Ramirez MD #### 63218, 29539 #### [facility], [address] [place] [employer] Case And Bench Assembler: Melissa Hernandez MD,PhD,MATEO #### 41791 #### [facility]/[place] [address] [facility] [place] [employer] Case [employer] Bench Assembler: Ebenezer Cedeno M.D.,PhD Creatinine [Mass/Vol] 1.08 mg/dL Normal 0.60-1.29 [facility] Comment on above: Performed By: #### 7 352, 1758, 68473 #### [facility] [address] [employer] Bench Assembler: Ben Ramirez MD #### 29511, 81198 #### [facility], [address] [place] [employer] Bench Assembler: Melissa Hernandez MD,PhD,MATEO #### 07539 #### [facility]/[place] [address] [facility] [address] [place] P[employer] Case [employer] Bench Assembler: Ebenezer Cedeno M.D.,PhD ELECTROLYTE BALANCE 6 mmol/L (calc) Low 7-17 [facility] Comment on above: Performed By: #### 7 352, 1758, 92406 #### [place] [address] Piano Case [employer] Bench Assembler: Ben Ramirez MD #### 28130, 09030 #### [facility], [address] [place] [employer] Bench Assembler: Melissa Hernandez MD,PhD,MATEO #### 17870 #### [facility]/[place] [address] [facility] [address] [place], [place] [employer] Bench Assembler: Ebenezer Cedeno M.D.,PhD GFR/1.73 sq M.predicted among non-blacks MDRD (S/P/Bld) [Vol rate/Area] 86 mL/min/{1.73_m2} Normal > OR = 60 [facility] Comment on above: Performed By: #### 7 352, 1759, 99594 #### [facility] [address], [address] [place] [address] [employer] Case [employer] Bench Assembler: Ben Ramirez MD #### 65087, 57581 #### [facility], [address] [place] [employer] Bench Assembler: Melissa Hernandez MD,PhD,MATEO #### 91153 #### [facility]/[place] [address] [facility] [place] [employer] Bench Assembler: Ebenezer Cedeno M.D.,PhD Glucose [Mass/Vol] 90 mg/dL Normal 65-139 [facility] Comment on above: Result Comment: Non-fasting reference interval Performed By: #### 7 352, 175, 36101 #### [facility] [address], [address] [place] [address] [employer]iano Case And Bench Assembler: Ben Ramirez MD #### 60498, 83000 #### [facility], [address] [place] Piano Case [employer] Bench Assembler: Melissa Hernandez MD,PhD,MATEO #### 78334 #### [facility] [address] [place] [employer] Assembler: Ebenezer Cedeno M.D.,PhD Potassium [Moles/Vol] 4.1 mmol/L Normal 3.5-5.3 [facility] Comment on above: Performed By: #### 7 352, 175, 45538 #### [facility] [address], [address] [place] [address] [employer] Case [employer] Bench Assembler: Ben Ramirez MD #### 72854, 52929 #### [facility], [address] [place] [employer] Bench Assembler: Melissa Hernandez MD,PhD,MATEO #### 77906 #### [facility]/[place] [address] [facility] [address] [place] [employer] Bench Assembler: Ebenezer Cedeno M.D.,PhD Protein [Mass/Vol] 7.0 g/dL Normal 6.1-8.1 [facility] Comment on above: Performed By: #### 7 352, 1758, 91597 #### [facility] [address] [employer] As[employer]er: Ben Ramirez MD #### 58363, 94854 #### [facility], [address] [place] [employer] Assembler: Melissa Hernandez MD,PhD,MATEO #### 96841 #### [facility]/[place] [address] [facility] [address] [place] [employer] Assembler: Ebenezer Cedeno M.D.,PhD Sodium [Moles/Vol] 139 mmol/L Normal 135-146 [facility] Comment on above: Performed By: #### 7 352, 1758, 83744 #### [place] [address] [employer] Bench Assembler: Ben Ramirez MD #### 96634, 10960 #### [facility], [address] [place] [employer] Assembler: Melissa Hernandez MD,PhD,MATEO #### 59947 #### [facility]/[place] [address] [facility] [address] [place] [employer] Assembler: Ebenezer Cedeno M.D.,PhD Urea nitrogen [Mass/Vol] 13 mg/dL Normal 7-25 [facility] Comment on above: Performed By: #### 7 352, 1759, 73765 #### [facility] [address], [address] [place] [address] Piano Case And Bench Assembler: Ben Ramirez MD #### 59931, 61436 #### [facility], [address] [place] [employer] Bench Assembler: Melissa Hernandez MD,PhD,MATEO #### 71362 #### [facility] [place] [employer] Case [employer] Bench Assembler: Ebenezer Cedeno M.D.,PhD FACTOR V (LEIDEN) MUTATION A [facility] 11-27-2024 FACTOR V (LEIDEN) MUTATION Positive Abnormal [facility] Comment on above: Result Comment: POSI TIVE FOR ONE COPY OF THE FACTOR V LEIDEN (R506Q) VARIANT Performed By: #### 7 352, 1759, 72771 #### [facility] [address], [address] [place] [address] [employer] Bench Assembler: Ben Ramirez MD #### 58549, 33689 #### [facility], [address] [place] [employer] Assembler: Melissa Hernandez MD,PhD,MATEO #### 43033 #### [facility] [address] [facility] [address] [place] [employer] Assembler: Ebenezer Cedeno M.D.,PhD INTERPRETATION See Below Normal [facility] Comment on above: Result Comment: INTE RPRETATION: This individual is heterozygous for the Factor V Leiden (R506Q) variant in the Factor V gene. Heterozygotes have a 3-8-fold increased risk for venous thrombosis. In addition, other family members may also be carriers of the variant and similarly at risk. Consider genetic counseling and DNA testing for at-risk family members. Laboratory testing supervised and results monitored by Ajit Jimenez, Ph.D., [facility], [facility], [facility]. VARIANT ANALYSIS: The Factor V Leiden (R506Q) variant [[id number].[id number] (p.R534Q)] in the Factor V gene is one of the most common causes of inherited thrombophilia. This variant causes resistance to degradation of activated Factor V protein by activated Protein C (APC). The Factor V Leiden (R506Q) variant is detected by amplification of the selected region of the Factor V gene by polymerase chain reaction (PCR) and fluorescent probe hybridization to the targeted region, followed by end-point analysis with a real time PCR system. Although rare, false positive or false negative results may occur. All results should be interpreted in context of clinical findings, relevant history, and other laboratory data. Health care providers, please contact your local [employer] genetic counselor or call [employer] ([phone]) for assistance with interpretation of these results. This test was developed and its analytical performance characteristics have been determined by [employer] [facility]. It has not been cleared or approved by the FDA. This assay has been validated pursuant to the CLIA regulations and is used for clinical purposes. Performed By: #### 7 765, 4782, 32606 #### [employer] [address], [address] [place] [address] [employer] As[employer]er: Ben Ramirez MD #### 17919, 49936 #### [employer] [facility], [address] [place] [address] [employer] Bench Assembler: Melissa Hernandez MD,PhD,MATEO #### 65900 #### [employer] [facility] [address] [facility] [place] [address] [employer] Assembler: Ebenezer Cedeno M.D.,PhD Result Comment: INTE RPRETATION: This individual is negative (normal) for the [id number] variant in the Prothrombin/Factor II gene. Increased risk of thrombophilia can be caused by a variety of genetic and non-genetic factors not screened for by this assay. Laboratory testing supervised and results monitored by Ajit Jimenez, Ph.D., [facility], [facility], [facility]. The T57684E mutation [[id number]: g.43166C>A (c.*97G>A)] in the Prothrombin/Factor II gene is the second most common inherited risk factor for thrombosis occurring in approximately 2% of Caucasians. Presence of the mutation is associated with an elevation of prothrombin levels to about 30% above normal in heterozygotes and to 70% above normal in homozygotes. Prothrombin (J50176J) mutations are detected by amplification of their selected gene regions by polymerase chain reaction (PCR) and fluorescent probe hybridization to the targeted region, followed by melting curve analysis with a real time PCR system. Although rare, false positive or false negative results may occur. All results should be interpreted in context of clinical findings, relevant history, and other laboratory data. Health care providers, please contact your local [facility]' genetic counselor or call [phone] ([phone]) for assistance with interpretation of these results. This test was developed and its analytical performance characteristics have been determined by [facility]. It has not been cleared or approved by the FDA. This assay has been validated pursuant to the CLIA regulations and is used for clinical purposes. PROTHROMBIN (FACTOR II) 2021 0G>A MUTATIONon 11-27-2024 PROTHROMBIN (FACTOR II) 24713W>A MUTATION Negative Normal [facility] Comment on above: Result Comment: RESU LT: [id number] VARIANT NOT DETECTED Performed By: #### 7 669, 5487, 35682 #### [facility] [address], [address] [place] [address] Piano Case And Bench Assembler: Ben Ramirez MD #### [id number], 99324 #### [employer] [facility] [address] [place] [address] Piano Case And Bench Assembler: Melissa Hernandez MD,PhD,MATEO #### 11716 #### [facility]/Zamudiolee GordonWorcesterFormerly [facility] [address] [place] [address] Piano Case And Bench Assembler: Ebenezer Cedeno M.D.,PhD HEPATIC FUNCTION PANEL Albumin [Mass/Vol] 4.5 g/dL Normal 3.6-5.1 [facility] Comment on above: Order Comment: FASTI NG:NO FASTING: NO Performed By: #### 1 0256 #### [facility] [place] [address] P[employer] Case [employer] Bench Assembler: Ben Ramirez MD Albumin/Globulin [Mass ratio] 1.9 {ratio} Normal 1.0-2.5 [facility] Comment on above: Order Comment: FASTI NG:NO FASTING: NO Performed By: #### 1 0256 #### [facility] [place] [address] P[employer] Case [employer] Bench Assembler: Ben Ramirez MD ALP [Catalytic activity/Vol] 59 U/L Normal 36-130 [facility] Comment on above: Order Comment: FASTI NG:NO FASTING: NO Performed By: #### 1 0256 #### [facility] [place] [address] Piano Case And Bench Assembler: Ben Ramirez MD ALT [Catalytic activity/Vol] 75 U/L High 9-46 [facility] Comment on above: Order Comment: FASTI NG:NO FASTING: NO Performed By: #### 1 0256 #### [facility] [place] [address] Piano Case And Bench Assembler: Ben Ramirez MD AST [Catalytic activity/Vol] 37 U/L Normal 10-40 [facility] Comment on above: Order Comment: FASTI NG:NO FASTING: NO Performed By: #### 1 0256 #### [facility] [place] [address] Piano Case [employer] Bench Assembler: Ben Ramirez MD Bilirubin [Mass/Vol] 0.3 mg/dL Normal 0.2-1.2 [facility] Comment on above: Order Comment: FASTI NG:NO FASTING: NO Performed By: #### 1 0256 #### [facility] [place] [address] Piano Case And Bench Assembler: Ben Ramirez MD BILIRUBIN, INDIRECT 0.2 mg/dL (calc) Normal 0.2-1.2 [facility] Comment on above: Order Comment: FASTI NG:NO FASTING: NO Performed By: #### 1 0256 #### [facility] [place] [address] Piano Case And Bench Assembler: Ben Ramirez MD Bilirubin.indirect [Mass/Vol] 0.1 mg/dL Normal < OR = 0.2 [facility] Comment on above: Order Comment: FASTI NG:NO FASTING: NO Performed By: #### 1 0256 #### [facility] [place] [address] Piano Case And Bench Assembler: Ben Ramirez MD Globulin (S) [Mass/Vol] 2.4 g/dL Normal 1.9-3.7 [facility] Comment on above: Order Comment: FASTI NG:NO FASTING: NO Performed By: #### 1 0256 #### [facility] [place] [address] Piano Case And Bench Assembler: Ben Ramirez MD Protein [Mass/Vol] 6.9 g/dL Normal 6.1-8.1 [facility] Comment on above: Order Comment: FASTI NG:NO FASTING: NO Performed By: #### 1 0256 #### [facility] [place] [address] Piano Case And Bench Assembler: Ben Ramirez MD [facility] 08-21-2024 [facility] HNO ID: [id number] Author: LILLY ARMENDARIZ RT(R) Service: Radiology Author Type: Technologist Type: Allied Health Filed: 08/21/2024 14:31 Note Text: Radiology Service Progress Note DATE OF SERVICE: August 21, 2024 TIME: 2:31 PM PATIENT IDENTITY VERIFICATION COMPLETED USING TWO (2) STANDARD IDENTIFIERS: Name and Date of confirmed by patient verbally and Name and Date of confirmed by identification band. FALL SCREENING: Has the patient had 2 falls in the last year or 1 fall with injury or currently using an Ambulatory Assistive Device (Walker, Cane, Wheelchair, Crutches, etc.)? Emergency Room Patient: Screened in ED PATIENT GENDER DATA: Male PATIENT RELEVANT IMPLANT DATA REVIEWED: Yes PATIENT PRESENTS WITH AN IMPLANTABLE OR ATTACHED PROFESSIONAL VOLLEYBALL PLAYER: No ALLERGIES: Reviewed and unchanged CONTRAST ALLERGY: NO. EXAM: CT -CONTRAST INDUCED NEPHROPATHY RISK FACTORS: Not applicable CREATININE: Creatinine Date Value Ref Range Status 08/21/2024 1.12 0.73 - 1.22 mg/dL Final Estimated Glomerular Filtration Rate Date Value Ref Range Status 08/21/2024 83 >=60 mL/min/1.73m? Final Comment: Estimated Glomerular Filtration Rate (eGFR) is calculated using the 2020 CKD-EPI creatinine equation. This equation utilizes serum creatinine, sex, and age as parameters. The creatinine assay has traceable calibration to isotope dilution-mass spectrometry. Refer to KDIGO guidelines for clinical interpretation. In patients with unstable renal function, e.g. those with acute kidney injury, the eGFR may not accurately reflect actual GFR. P.O.C.T. RESULTS: POC done: Yes, See Lab Tab August 21, 2024 TREATMENT: N/A PERIPHERAL IV DATA: Inpatient - refer to LDA documentation RADIOLOGY DEPARTMENT: CT; Exam(s) Completed: PE Study SIGNATURE: RT Garrick(R) PATIENT NAME: Arnaldo Barry DATE: August 21, 2024 TIME: 2:[address] [facility] CBC W Auto Differential pane l (Bld)on 08-21-2024 Basophils (Bld) [#/Vol] 0.04 10*3/uL Normal <0.11 [facility] Comment on above: Order Comment: Speccheryl chang Type: BLOOD SPECIMEN Ordering Facility: [facility] Address: [address] [place] [address] Performed By: #### 5 7021-8 #### [facility] CLIA [id number] [address] [place] [address] [place] Basophils/100 WBC (Bld) 0.5 % Normal [facility] Comment on above: Order Comment: Jean chang Type: BLOOD SPECIMEN Ordering Facility: [facility] Address: [address] [place] [address] Performed By: #### 5 7021-8 #### [facility] CLIA [id number] [address] [place] [address] [place] Differential cell count method Nom (Bld) Auto Normal [facility] Comment on above: Order Comment: Speci men Type: BLOOD SPECIMEN Ordering Facility: [facility] Address: [address] [place] [address] Performed By: #### 5 7021-8 #### [facility] CLIA [id number] [address] [place] [address] [place] Eosinophils (Bld) [#/Vol] 0.08 10*3/uL Normal <0.46 [facility] Comment on above: Order Comment: Speci men Type: BLOOD SPECIMEN Ordering Facility: [facility] Address: [address] [place] [address] Performed By: #### 5 7021-8 #### [facility] CLIA [id number] [address] [place] Eosinophils/100 WBC (Bld) 1.0 % Normal [facility] Comment on above: Order Comment: Speci men Type: BLOOD SPECIMEN Ordering Facility: [facility] Address: [address] [place] [address] Performed By: #### 5 7021-8 #### [facility] CLIA [id number] [address] [place] Erythrocyte distribution width (RBC) [Ratio] 13.2 % Normal 11.5-15.0 [facility] Comment on above: Order Comment: Speci men Type: BLOOD SPECIMEN Ordering Facility: [facility] Address: [address] [place] [address] Performed By: #### 5 7021-8 #### [facility] CLIA [id number] [address] [place] Hematocrit (Bld) [Volume fraction] 42.4 % Normal 39.0-51.0 [facility] Comment on above: Order Comment: Speci men Type: BLOOD SPECIMEN Ordering Facility: [facility] Address: [address] [place] [address] Performed By: #### 5 7021-8 #### [facility] CLIA [id number] [address] [place] [address] [place] Hemoglobin (Bld) [Mass/Vol] 14.5 g/dL Normal 13.0-17.0 [facility] Comment on above: Order Comment: Speci men Type: BLOOD SPECIMEN Ordering Facility: [facility] Address: [address] [place] [address] Performed By: #### 5 7021-8 #### [facility] CLIA [id number] [address] [place] [address] [place] Immature granulocytes (Bld) [#/Vol] 10*3/uL Normal <0.10 [facility] Comment on above: Order Comment: Speci men Type: BLOOD SPECIMEN Ordering Facility: [facility] Address: [address] [place] [address] Performed By: #### 5 7021-8 #### [facility] CLIA [id number] [address] [place] Immature granulocytes/100 WBC (Bld) 0.2 % Normal [facility] Comment on above: Order Comment: Speci men Type: BLOOD SPECIMEN Ordering Facility: [facility] Address: [address] [place] [address] Performed By: #### 5 7021-8 #### [facility] CLIA [id number] [address] [place] [address] [place] Lymphocytes (Bld) [#/Vol] 1.83 10*3/uL Normal 1.00-4.00 [facility] Comment on above: Order Comment: Speci men Type: BLOOD SPECIMEN Ordering Facility: [facility] Address: [address] [place] [address] Performed By: #### 5 7021-8 #### [facility] CLIA [id number] [address] [place] Lymphocytes/100 WBC (Bld) 21.9 % Normal [facility] Comment on above: Order Comment: Speci men Type: BLOOD SPECIMEN Ordering Facility: [facility] Address: [address] [place] [address] Performed By: #### 5 7021-8 #### [facility] CLIA [id number] [address] MCH (RBC) [Entitic mass] 29.4 pg Normal 26.0-34.0 [facility] Comment on above: Order Comment: Speci men Type: BLOOD SPECIMEN Ordering Facility: [facility] Address: [address] [place] [address] Performed By: #### 5 7021-8 #### [facility] CLIA [id number] [address] [place] MCHC (RBC) [Mass/Vol] 34.2 g/dL Normal 30.5-36.0 [facility] Comment on above: Order Comment: Speci men Type: BLOOD SPECIMEN Ordering Facility: [facility] Address: [address] [place] [address] Performed By: #### 5 7021-8 #### [facility] CLIA [id number] [address] MCV (RBC) [Entitic vol] 86.0 fL Normal 80.0-100.0 [facility] Comment on above: Order Comment: Speci men Type: BLOOD SPECIMEN Ordering Facility: [facility] Address: [address] [place] [address] Performed By: #### 5 7021-8 #### [facility] CLIA [id number] [address] OF [facility] Monocytes (Bld) [#/Vol] 0.58 10*3/uL Normal <0.87 [facility] Comment on above: Order Comment: Speci men Type: BLOOD SPECIMEN Ordering Facility: [facility] Address: [address] [place] [address] Performed By: #### 5 7021-8 #### [facility] CLIA [id number] [address] Monocytes/100 WBC (Bld) 6.9 % Normal [facility] Comment on above: Order Comment: Speci men Type: BLOOD SPECIMEN Ordering Facility: [facility] Address: [address] [place] [address] Performed By: #### 5 7021-8 #### [facility] CLIA [id number] [address] [place] [address] [place] Neutrophils (Bld) [#/Vol] 5.80 10*3/uL Normal 1.45-7.50 [facility] Comment on above: Order Comment: Speci men Type: BLOOD SPECIMEN Ordering Facility: [facility] Address: [address] [place] [address] Performed By: #### 5 7021-8 #### [facility] CLIA [id number] [address] [place] Neutrophils/100 WBC (Bld) 69.5 % Normal [facility] Comment on above: Order Comment: Speci men Type: BLOOD SPECIMEN Ordering Facility: [facility] Address: [address] [place] [address] Performed By: #### 5 7021-8 #### [facility] CLIA [id number] [address] [place] [address] [place] Nucleated RBC (Bld) [#/Vol] 10*3/uL Normal <0.01 [facility] Comment on above: Order Comment: Speci men Type: BLOOD SPECIMEN Ordering Facility: [facility] Address: [address] [place] [address] Performed By: #### 5 7021-8 #### [facility] CLIA [id number] [address] [place] Nucleated RBC/100 WBC (Bld) [Ratio] 0.0 /[address] [facility] Comment on above: Order Comment: Speci men Type: BLOOD SPECIMEN Ordering Facility: [facility] Address: [address] [place] [address] Performed By: #### 5 7021-8 #### [facility] CLIA [id number] [address] [place] [address] [place] Platelet mean volume (Bld) [Entitic vol] 8.9 fL Low 9.0-12.7 [facility] Comment on above: Order Comment: Speci men Type: BLOOD SPECIMEN Ordering Facility: [facility] Address: [address] [place] [address] Performed By: #### 5 7021-8 #### [facility] CLIA [id number] [address] OF [place] Platelets (Bld) [#/Vol] 278 10*3/uL Normal 150-400 [facility] Comment on above: Order Comment: Speci men Type: BLOOD SPECIMEN Ordering Facility: [facility] Address: [address] [place] [address] Performed By: #### 5 7021-8 #### [facility] CLIA [id number] [address] OF [facility] RBC (Bld) [#/Vol] 4.93 10*6/uL Normal 4.20-6.00 [facility] Comment on above: Order Comment: Speci men Type: BLOOD SPECIMEN Ordering Facility: [facility] Address: [address] [place] [address] Performed By: #### 5 7021-8 #### [facility] CLIA [id number] [address] OF [facility] WBC (Bld) [#/Vol] 8.35 10*3/uL Normal 3.70-11.00 [facility] Comment on above: Order Comment: Speci men Type: BLOOD SPECIMEN Ordering Facility: [facility] Address: [address] [place] [address] Performed By: #### 5 7021-8 #### [facility] CLIA [id number] [address] CTA CHEST (NON GATED) W IVCO N PEon 08-21-2024 CTA CHEST (NON GATED) W IVCON PE * * *Final Report* * * DATE OF EXAM: Aug 21 2024 2:31PM [facility] 0564 - CTA CHEST (NON GATED) W IVCON PE / PROCEDURE REASON: Pulmonary embolism (PE) suspected, high prob * * * * Physician Interpretation * * * * EXAMINATION: CHEST CTA (NON GATED) WITH CONTRAST (PULMONARY EMBOLISM PROTOCOL) Clinical History: Left lower extremity DVT, started on Eliquis. Pain not improving. Intermittent shortness of breath and dizziness. Technique: Spiral CT acquisition of the chest from the thoracic inlet to the upper abdomen following IV contrast. Axial 1 and 3 mm thick slices plus coronal and sagittal reformatted images. MQ: CTCP_5 Contrast: 100 mL Omnipaque [address] Radiation dose: Integrated Dose-length product (DLP) for this visit = 812 mGy*cm CT Dose Reduction Employed: Automated exposure control(AEC) and iterative recon CTA: Post-processed images {Maximum intensity Projection (MIP), Volume-rendered (VR), or Surface shaded display images (SSD)} were created, reviewed and archived. Comparison: No relevant prior studies available. RESULT: Limitations: None at evaluation of the segmental and subsegmental pulmonary arteries secondary to respiratory motion artifact. Evaluation for thromboembolic disease: - Right heart chambers: No thromboembolic disease. - Main pulmonary arteries: No thromboembolic disease. - Lobar pulmonary arteries: No thromboembolic disease. - Segmental pulmonary arteries: No thromboembolic disease. - Subsegmental pulmonary arteries: No thromboembolic disease. - Additional pulmonary artery findings: The main pulmonary artery is normal in caliber. Lines, tubes, and devices: None. Lung parenchyma and airways: The central airways are patent. No consolidation or pneumothorax. No significant underlying emphysematous or fibrotic changes. Bilateral posterior lower lobe dependent atelectasis. No suspicious pulmonary nodules. Pleural space: No pleural effusion. No pleural thickening. Lower neck, lymph nodes, and mediastinum: The imaged thyroid gland is normal. No lymphadenopathy in the supraclavicular, axillary, mediastinal, or hilar regions. Heart, pericardium, and thoracic vessels: The thoracic aorta is normal in caliber. The cardiac chambers are normal in size. No coronary artery atherosclerotic calcifications are noted, although the study is not optimized for coronary assessment. No pericardial effusion or thickening. Bones and soft tissues: No destructive bone lesion. Chest wall is unremarkable. Upper abdomen: No acute abnormality within the imaged upper abdomen. Localizer images: No additional findings. IMPRESSION: No CT evidence of pulmonary embolism. Harbormaster: PSCB Transcribe Date/Time: Aug 21 2024 3:02P Dictated by : MADYSON SIMS MD This examination was interpreted and the report reviewed and electronically signed by: MADYSON SIMS MD on Aug 21 2024 3:09PM EST [id number] Normal [facility] Comprehensive metabolic 2000 panelon 08-21-2024 Albumin [Mass/Vol] 4.0 g/dL Normal 3.9-4.9 [facility] Comment on above: Order Comment: Speci men Type: BLOOD SPECIMENOrdering Facility: [facility] Address: [address] [place] [address] Performed By: #### 2 4323-8, 29166-3, [id number], 41726-4 ####[facility] [id number] [place] [address] [place] ALP [Catalytic activity/Vol] 71 U/L Normal 38-113 [facility] Comment on above: Order Comment: Speci men Type: BLOOD SPECIMENOrdering Facility: [facility] Address: [address] [place] [address] Performed By: #### 2 4323-8, 83273-4, OMZ4654, 92478-9 ####[facility] [id number] [place] [address] [place] ALT [Catalytic activity/Vol] 58 U/L High 10-54 [facility] Comment on above: Order Comment: Speci men Type: BLOOD SPECIMENOrdering Facility: [facility] Address: [address] [place] [address] Performed By: #### 2 4323-8, 51933-0, SQP4977, 84333-8 ####[facility] [id number] [address] STATES [facility] Anion gap [Moles/Vol] 13 mmol/L Normal 8-15 [facility] Comment on above: Order Comment: Speci men Type: BLOOD SPECIMENOrdering Facility: [facility] Address: [address] [place] [address] Performed By: #### 2 4323-8, 71440-8, EQT9204, 91279-8 ####[facility] [id number] [address] [place] AST [Catalytic activity/Vol] 32 U/L Normal 14-40 [facility] Comment on above: Order Comment: Speci men Type: BLOOD SPECIMENOrdering Facility: [facility] Address: [address] [place] [address] Performed By: #### 2 4323-8, 36164-3, JIF9551, 60888-4 ####[facility] [id number] [place] [address] [place] Bilirubin [Mass/Vol] 0.3 mg/dL Normal 0.2-1.3 [facility] Comment on above: Order Comment: Speci men Type: BLOOD SPECIMENOrdering Facility: [facility] Address: [address] [place] [address] Performed By: #### 2 4323-8, 32351-5, PCI9414, 06892-6 ####[facility] [id number] [place] [id number] [place] Calcium [Mass/Vol] 9.6 mg/dL Normal 8.5-10.2 [facility] Comment on above: Order Comment: Speci men Type: BLOOD SPECIMENOrdering Facility: [facility] Address: [address] [place] [address] Performed By: #### 2 4323-8, , PAM6430, 36025-6 ####[facility] [id number] [place] [address] [place] Chloride [Moles/Vol] 100 mmol/L Normal 98-107 [facility] Comment on above: Order Comment: Speci men Type: BLOOD SPECIMENOrdering Facility: [facility] Address: [address] [place] [address] Performed By: #### 2 4323-8, 71125-8, ZNT7225, 84259-4 ####[facility] [id number] [place] [id number] [place] CO2 [Moles/Vol] 22 mmol/L Normal 22-30 [facility] Comment on above: Order Comment: Speci men Type: BLOOD SPECIMENOrdering Facility: [facility] Address: [address] [place] [address] Performed By: #### 2 4323-8, 63904-1, [id number], 63174-7 ####[facility] [id number] [place] [address] [place] Creatinine [Mass/Vol] 1.12 mg/dL Normal 0.73-1.22 [facility] Comment on above: Order Comment: Jean chang Type: BLOOD SPECIMENOrdering Facility: [facility] Address: [address] [place] [address] Performed By: #### 2 4323-8, 58830-2, STO1860, 27425-1 ####[facility] [id number] [place] [address] [place] Creatinine and Glomerular filtration rate.predicted panel (S/P/Bld) 83 mL/min/1.73m??? Normal >=60 [facility] Comment on above: Order Comment: Jean chang Type: BLOOD SPECIMENOrdering Facility: [facility] Address: [address] [place] [address] Result Comment: Valerie mated Glomerular Filtration Rate (eGFR) is calculated using the 2020 CKD-EPI creatinine equation. This equation utilizes serum creatinine, sex, and age as parameters. The creatinine assay has traceable calibration to isotope dilution-mass spectrometry. Refer to KDIGO guidelines for clinical interpretation. In patients with unstable renal function, e.g. those with acute kidney injury, the eGFR may not accurately reflect actual GFR. Performed By: #### 2 4323-8, 95195-3, TDL5400, 97939-6 ####[facility] [id number] [place] [id number] [place] Glucose [Mass/Vol] 145 mg/dL High 74-99 [facility] Comment on above: Order Comment: Jean chang Type: BLOOD SPECIMENOrdering Facility: [facility] Address: [address] [place] [address] Result Comment: The [place] Diabetes Association (ADA) provides guidance for cutoff values for fasting glucose and random glucose. The ADA defines fasting as no caloric intake for at least 8 hours. Fasting plasma glucose results between 100 to 125 mg/dL indicate increased risk for diabetes (prediabetes). Fasting plasma glucose results greater than or equal to 126 mg/dL meet the criteria for diagnosis of diabetes. In the absence of unequivocal hyperglycemia, results should be confirmed by repeat testing. In a patient with classic symptoms of hyperglycemia or hyperglycemic crisis, random plasma glucose results greater than or equal to 200 mg/dL meet the criteria for diagnosis of diabetes. Reference: Standards of Medical Care in Diabetes 2016, [place] [employer] Association. Diabetes Care. 2016.39(Suppl 1). Performed By: #### 2 4323-8, 96511-3, BHG1191, 22578-0 ####[facility] [id number] [place] [address] [place] Potassium [Moles/Vol] 3.9 mmol/L Normal 3.7-5.1 [facility] Comment on above: Order Comment: Speci men Type: BLOOD SPECIMENOrdering Facility: [facility] [facility] Address: [address] [place] [address] Performed By: #### 2 4323-8, 59866-5, [id number], 70652-9 ####[facility] LABORATORYCLIA [id number] [place] [address] [place] Protein [Mass/Vol] 7.1 g/dL Normal 6.3-8.0 [facility] Comment on above: Order Comment: Speci men Type: BLOOD SPECIMENOrdering Facility: [facility] Address: [address] [place] [address] Performed By: #### 2 4323-8, 38954-7, [id number], 35493-6 ####[facility] LABORATORYCLIA [id number] [place] [address] [place] Sodium [Moles/Vol] 135 mmol/L Low 136-144 [facility] Comment on above: Order Comment: Speci men Type: BLOOD SPECIMENOrdering Facility: [facility] Address: [address] [place] [address] Performed By: #### 2 4323-8, 36221-9, [id number], 37270-8 ####[facility] LABORATORYCLIA [id number] [place] [id number] [place] Urea nitrogen [Mass/Vol] 11 mg/dL Normal 9-24 [facility] Comment on above: Order Comment: Speci men Type: BLOOD SPECIMENOrdering Facility: [facility] Address: [address] [place] [address] Performed By: #### 2 4323-8, 21162-6, [id number], 21773-5 ####D[facility] LABORATORYCLIA [id number] [place] [address] [place] ED NOTEon 08-21-2024 ED NOTE HNO ID: [id number] Author: DUONG RIOJAS, MONALISA Service: ? Author Type: Registered Nurse Type: ED Notes Filed: 08/21/2024 16:18 Note Text: DO Cadena rounded on patient at this time. Patient results of testing, imaging, and discharge plan of care was discussed by provider at this time. Patient is agreeable to discharge plan of care at this time. This RN provided prescription education, discharge instructions, and follow up care instructions. Patient verbalized understanding of all discharge teaching. VS are stable. IV removed intact. Patient was discharged in stable condition in care of spouse Normal [facility] ED NOTE HNO ID: [id number] Author: ELEAZAR CADENA DO Service: Emergency Medicine Author Type: Physician Type: ED Notes Filed: 08/21/2024 15:23 Note Text: ED CONTINUATION OF CARE NOTE Code Status: Full Code Assumed care from: [email or web address] Presentation / Findings / Interventions / Plan / Items to Follow Up: Already 3-year-old male patient presents ED on prior shift. Care endorsed to me at afternoon shift change by morning physician [id number] report pending imaging results as below: US DVT LOWER LEFT Final Result IMPRESSION: Thrombus is seen within the left popliteal vein, nonocclusive. Thrombus is seen within the peroneal and posterior tibial veins. Findings verbally communicated via ISN. Harbormaster: DIANNA Transcribe Date/Time: Aug 21 2024 2:35P Dictated by : DREW TARIQ MD This examination was interpreted and the report reviewed and electronically signed by: DREW TARIQ MD on Aug 21 2024 2:38PM EST CTA CHEST (NONGATED) W IVCON PE Final Result IMPRESSION: No CT evidence of pulmonary embolism. Harbormaster: DIANNA Transcribe Date/Time: Aug 21 2024 3:02P Dictated by : MADYSON SIMS MD This examination was interpreted and the report reviewed and electronically signed by: MADYSON SIMS MD on Aug 21 2024 3:09PM EST Clinical Impressions as of 08/21/24 1519 Acute deep vein thrombosis (DVT) of proximal vein of left lower extremity (HCC) Lightheadedness Dyspnea, unspecified type Elevated ALT measurement Patient doing well on reassessment. Repeat vitals excellent. Patient given a copy of his imaging reports. At this point as he is on Eliquis I do believe he is safe and suitable for close outpatient follow-up and he will be discharged home to follow-up as instructed Condition: Stable Disposition: Discharge SIGNATURE: Eleazar Cadena DO PATIENT NAME: Arnaldo Barry DATE: August 21, 2024 TIME: 3:19 PM PAGER/CONTACT #: [facility] ED PROV NOTEon 08-21-2024 ED PROV NOTE HNO ID: [id number] Author: EDIE ARCHER MD Service: Emergency Medicine Author Type: Physician Type: ED Provider Notes Filed: 08/21/2024 14:09 Note Text: ED Provider Note Patient Name: Arnaldo Barry : 1980 SERVICE DATE: 08/21/24 History Patient presents with: Leg Pain: Pt presents to ER from home for CC LLE DVT, confirmed Wednesday at [facility]. Started on eliquis. Pain not improving. Intermittent SOB and dizziness. Mr. Barry is a 43-year-old presenting with known left lower extremity DVT, found a few days ago, some pain and swelling in his left calf and behind his left knee for the last 5 days, now with some lightheadedness and trouble breathing as well for the last 5 days, pain and swelling not really getting worse, but not improving either. He was sent back to the emergency department given he has had 4 doses of Eliquis and has not improved yet. He recently had surgery on his left ankle at [facility]. History reviewed. No pertinent past medical history. History reviewed. No pertinent surgical history. No family history on file. Social History Tobacco Use - Smoking status: Former Types: Cigarettes - Smokeless tobacco: Never Substance and Sexual Activity - Alcohol use: Not on file - Drug use: Not Currently - Sexual activity: Not Currently ALLERGIES Allergen Reactions - Sulfa (Sulfonamide * Rash Review of Systems Constitutional: Negative for chills and fever. Respiratory: Positive for shortness of breath. Negative for cough. Cardiovascular: Negative for chest pain and leg swelling. Gastrointestinal: Negative for abdominal pain, diarrhea, nausea and vomiting. Genitourinary: Negative for dysuria, flank pain, frequency and hematuria. Musculoskeletal: Positive for arthralgias and myalgias. Negative for back pain. Skin: Negative for rash. Neurological: Positive for weakness and light-headedness. Negative for speech difficulty, numbness and headaches. Psychiatric/Behavioral : Negative for hallucinations and suicidal ideas. Physical Exam Vitals [08/21/24 1253] BP Pulse Temp Temp src Resp SpO2 Weight Height 140/74 (!) 100 36.6 ?C (97.8 ?F) Oral 20 98 % 117.9 kg (260 lb) -- Physical Exam Vitals and nursing note reviewed. Constitutional: General: He is not in acute distress. Appearance: He is well-developed. HENT: Head: Normocephalic and atraumatic. Eyes: Pupils: Pupils are equal, round, and reactive to light. Neck: Trachea: No tracheal deviation. Cardiovascular: Rate and Rhythm: Tachycardia present. Heart sounds: No murmur heard. No friction rub. No gallop. Pulmonary: Effort: Pulmonary effort is normal. No respiratory distress. Breath sounds: Normal breath sounds. No wheezing or rales. Abdominal: General: There is no distension. Palpations: Abdomen is soft. Musculoskeletal: General: Normal range of motion. Cervical back: Normal range of motion and neck supple. Comments: DP pulse intact, sensation and strength intact, minimal swelling of the left lower extremity Skin: General: Skin is warm and dry. Findings: No erythema. Neurological: Mental Status: He is alert and oriented to person, place, and time. Cranial Nerves: No cranial nerve deficit. Motor: No abnormal muscle tone. Psychiatric: Behavior: Behavior normal. Thought Content: Thought content normal. Judgment: Judgment normal. Diagnostic Testing ED Labs Ordered and Reviewed COMPLETE BLOOD COUNT AND DIFFERENTIAL - Abnormal; Notable for the following components: Result Value Ref Range MPV 8.9 (*) 9.0 - 12.7 fL All other components within normal limits COMPREHENSIVE METABOLIC PANEL MAGNESIUM HIGH SENSITIVITY TROPONIN T (INITIAL) NT PRO BNP PROTHROMBIN TIME ACTIVATED PARTIAL THROMBOPLASTIN TIME Procedures ED Course / Clinical Impression Clinical Impressions as of 08/21/24 1420 Acute deep vein thrombosis (DVT) of proximal vein of left lower extremity (HCC) Lightheadedness Dyspnea, unspecified type Elevated ALT measurement MDM / Disposition / Plan Mr. Barry is a 43-year old man presenting today with known left lower extremity DVT. We will reevaluate that and evaluate for PE given he is having ongoing leg symptoms and some lightheadedness and dyspnea. Recent immobilization. Already on Eliquis x 4 doses. Will reassess after. History and Record Review Clinical information obtained from an independent historian. History obtained from or confirmed by: spouse. Differential Diagnoses - Known DVT, reassessing to see if extension, less likely phlegmasia cerula dolens or phlegmasia alba - PE, NM, symptomatic anemia, electrolyte disarray, acute kidney injury is less likely for the following reason(s): Doing workup Management Radiology Reports CTA CHEST (NONGATED) W IVCON PE (Results Pending) US DVT LOWER LEFT (Results Pending) Meds Given During Visit ED Medication Administration from 12 (more content not included)... Normal [facility] EKGon 08-21-2024 Electrocardiogram Ventricular Rate : 1 00 BPM Atrial Rate : 100 BPM P-R Interval : 152 ms QRS Duration : 106 ms Q-T Interval : 342 ms QTC Calculation(Bazett) : 441 ms Calculated P Marion : 56 degrees Calculated R Marion : -57 degrees Calculated T Marion : 49 degrees NORMAL SINUS RHYTHM LEFT AXIS DEVIATION ABNORMAL ECG no STEMI Confirmed by MD ARCHER EDWARD.S ([id number]) on 08/21/2024 1:45:47 PM NAME : ARNALDO BARRY PID : [id number] : 1980 Gender : Male Race : ORD : Procedure Date : Aug 21 2024 13:33:31 Edit Date : Aug 21 2024 13:45:48 Diagnosis: NORMAL SINUS RHYTHM LEFT AXIS DEVIATION ABNORMAL ECG no STEMI Confirmed by MD ARCHER EDWARD.S ([id number]) on 08/21/2024 1:45:47 PM Test Reason : Location : 1 : ER 1 Overread By : MD GIANNI,EDIE.S Edited By : MD ARCHER EDWARD.S Referred By : , Acquired by : Robert zavala [facility] HIGH SENSITIVITY TROPONIN T (INITIAL)on 08-21-2024 Troponin T.cardiac High sensitivity method [Mass/Vol] <6 Normal <12 [facility] Comment on above: Order Comment: Speci men Type: BLOOD SPECIMENOrdering Facility: [facility] Address: [address] [place] [address] Performed By: #### 2 4323-8, 17838-8, [id number], 81461-4 ####[facility] LABORATORYCLIA [id number] [address] Magnesium [facility] 08-21 Magnesium [Mass/Vol] 2.2 mg/dL Normal 1.7-2.3 [facility] Comment on above: Order Comment: Jean chang Type: BLOOD SPECIMENOrdering Facility: [facility] Address: [address] [place] [address] Performed By: #### 2 4323-8, 36470-4, [id number], 54515-1 ####[facility] LABORATORYCLIA [id number] [address] NT-proBNP [facility] 08-21 Natriuretic peptide.B prohormone N-Terminal [Mass/Vol] <36 Normal <125 [facility] Comment on above: Order Comment: Jean chang Type: BLOOD SPECIMENOrdering Facility: [facility] Address: [address] [place] [address] Performed By: #### 2 4323-8, 12720-2, [id number], 31278-8 ####[facility] LABORATORYCLIA [id number] [address] PT panel Coag (PPP)on 2023 INR Coag (PPP) [Relative time] 1.1 {INR} Normal 0.9-1.3 [facility] Comment on above: Order Comment: Jean chang Type: BLOOD SPECIMEN Ordering Facility: [facility] Address: [address] [place] [address] Result Comment: Geraldine min K Antagonist (VKA) Therapeutic Range: INR 2 to 3 (Target INR of 2.5) Note: For patients treated with VKA drugs, such as warfarin, the [place] [employer] 2012 Guideline recommends a therapeutic INR range of 2 to 3 (target INR of 2.5). This recommendation includes high-risk patients with antiphospholipid syndrome with previous arterial or venous thromboembolism, current-generation mechanical or bioprosthetic aortic heart valve replacement. Note: Patients with mechanical aortic valve replacement and additional risk factors for thromboembolic events (atrial fibrillation, previous thromboembolism, LV dysfunction, hypercoagulable conditions) or an older generation mechanical AVR (i.e., ball in-Cage) or any mechanical MVR should have a INR therapeutic range of 2.5 to 3.5 (target INR of 3). Ajay ONEILL, et al. Chest 2012, 141:7S-47S Alfonzo SCHULTZ et al. [facility] 2017, 70: 252-289 Performed By: #### 3 4528-0, 28394-3 #### [facility] CLIA [id number] [address] [place], [place] [id number] [place] [address] [place] PT Coag (PPP) [Time] 11.4 s Normal 9.7-13.0 [facility] Comment on above: Order Comment: Speci men Type: BLOOD SPECIMEN [facility]ing Facility[facility] Address: [address] [place] [address] Performed By: #### 3 4528-0, 57793-8 #### [facility] CLIA [id number] [address] [place] [address] [place] US DVT LOWER LTon 08-21-2024 DVT LOWER LT * * *Final Report* * * DATE OF EXAM: Aug 21 2024 2:33PM MDU 1006 - US DVT LOWER LT / PROCEDURE REASON: Leg deep vein thrombosis (DVT), post treatment * * * * Physician Interpretation * * * * EXAMINATION: LEFT LOWER EXTREMITY DEEP VENOUS ULTRASOUND WITH DOPPLER IMAGING CLINICAL HISTORY: Evaluate for DVT TECHNIQUE: Grayscale with compression maneuvers, color Doppler and spectral Doppler imaging of the left proximal deep veins was performed. Grayscale with compression maneuvers of the peroneal and posterior tibial veins was performed. The left great and small saphenous veins were evaluated at their insertion to the deep system. The contralateral common femoral vein was imaged for comparison. Images were obtained and stored in a permanent archive. MQ: [id number] COMPARISON: None RESULT: LEFT LOWER EXTREMITY PROXIMAL DEEP VEINS Distal External Iliac, Common Femoral and proximal Profunda Veins: Compression: Normal Doppler: Normal, spontaneous respirophasic flow. Normal response to augmentation. Femoral vein: Compression: Normal Doppler: Normal, spontaneous flow. Normal response to augmentation. Popliteal vein: Compression: Abnormal Doppler: Abnormal, nonocclusive thrombus. Normal response to augmentation. CALF DEEP VEINS Peroneal veins: Abnormal compression. Posterior tibial veins: Abnormal compression. Gastrocnemius and Soleal veins: Not imaged. SUPERFICIAL VEINS Great saphenous: Patent and compressible at insertion into common femoral vein; not otherwise assessed. Small Saphenous: Patent and compressible in the proximal calf, not otherwise assessed. RIGHT LOWER EXTREMITY (FOR COMPARISON) Common Femoral Vein: Compression: Normal Doppler: Normal, spontaneous respirophasic flow. Normal response to augmentation. IMPRESSION: Thrombus is seen within the left popliteal vein, nonocclusive. Thrombus is seen within the peroneal and posterior tibial veins. Findings verbally communicated via ISN. Harbormaster: PSCB Transcribe Date/Time: Aug 21 2024 2:35P Dictated by : DREW TARIQ MD This examination was interpreted and the report reviewed and electronically signed by: DREW TARIQ MD on Aug 21 2024 2:38PM EST [id number] Normal [facility] aPTT PPPon 08-21-2024 aPTT Coag (PPP) [Time] 27.1 s Normal 23.0-32.4 [facility] Comment on above: Order Comment: Speci men Type: BLOOD SPECIMEN [facility] Facility[facility] Address: [address] [place] [address] Performed By: #### 3 4528-0, 05978-0 #### [facility] CLIA [id number] [address] [place] [address] [facility] Emergency Department Summary on 08-19-2024 Emergency Department Summary [facility] Medical Records Department [address] [place] [id number] Emergency Department Summary 08/19/24 MR#: [id number] Acct: [id number] Name: ARNALDO BARRY Rep #: [id number] : 1980 43 From: Viki XIAO PCP: Dr. Nadya Grimes MD Status:DEP ER Location: ED HPI History of Present Illness Chief Complaint: Lower Extremity Injury Narrative Narrative: Patient presenting today with concerns for a blood clot to his left lower extremity. He reports that over the past 3 to 4 days he has had pain in his left calf that radiates to the posterior aspect of his left knee. 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 He recently had a bone marrow aspirate concentrate injection into his left ankle due to only history of repeated left ankle injuries and chronic left ankle pain. The bone marrow was taken from his left perez and this was performed 3 weeks ago at the [facility] by Dr. Slaughter. He denies any fevers, chills, chest pain, shortness of breath. [facility] Medical History (Updated 08/19/24 @ 14:[address] 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 Home Medications ???Medication ???Instructions ???Recorded ???Last Taken ???Type nirmatrelvir 300 mg (150 mg See Rx Instructions PO .COMPLEX 05/05/22 Unknown Rx x2)-ritonavir 100 mg tablet,dose #30 tabs pack (Paxlovid) apixaban 5 mg (74 tabs) tablets in See Rx Instructions PO .COMPLEX 08/19/24 Unknown Rx a dose pack (Eliquis DVT-PE Treat #74 tabs 30D Start) hydrocodone-acetaminop hen 5-325mg 1 tab PO Q4H PRN PRN Pain 3 days 08/19/24 Unknown Rx 5mg-325mg #10 TABLETS Allergy/AdvReac Type Severity Reaction Status Date / Time Sulfa (Sulfonamide Allergy Rash Verified 08/19/24 10:56 Antibiotics) Surgical History (Updated 08/19/24 @ 11:20 by Gloria Ross) H/O arthroscopy Social History Smoking Status: Never smoker ROS ROS ED Constitutional Constitutional ED: Denies chills or fever(s) Cardiovascular Cardiovascular: Denies chest pain Respiratory/Chest Respiratory/Chest: Denies dyspnea Gastrointestinal Gastrointestinal: Denies abdominal pain, nausea or vomiting Musculoskeletal Musculoskeletal: Reports myalgias Integumentary Denies rash Neurologic Neurologic: Denies paresthesias EXAM Physical Exam Const Vital Signs: 08/19/24 10:55 08/19/24 12:47 Temperature 98.3 F 98.2 F Temperature Source Temporal Pulse Rate 94 81 Respiratory Rate 14 18 Blood Pressure 151/88 H 125/72 H Blood Pressure Mean 109 89 Pulse Ox 97 99 Oxygen Delivery Method Room Air Positive well nourished, well developed and no apparent distress General Appearance ED: well developed HEENT Reports normocephalic and head/scalp atraumatic Mouth ED: Yes moist mucous membranes normal Eyes PERRL and EOMs intact bilaterally Neck full ROM and supple Chest Wall inspection of chest normal Resp normal respiratory effort and clear to auscultation bilaterally Cardio regular rate and regular rhythm Back/Spine normal ROM and normal to inspection Extremity normal to inspection and full ROM Extremity Narrative: Positive Homans' sign on the left, no asymmetric edema to the bilateral lower extremities, no erythema, no palpable cord, left DP pulse 2+, good cap refill, sensation intact. Neuro oriented x3, CN's II-XII intact bilaterally, moves all extremities, no focal motor deficits and no sensory deficits noted Sensorium / Orientation: awake and alert Psych mental status grossly normal and thought process normal Skin no rashes or lesions noted and no wounds Physical Exam Const Vital Signs: 08/19/24 10:55 08/19/24 12:47 Temperature 98.3 F 98.2 F Temperature Source Temporal Pulse Rate 94 81 Respiratory Rate 14 18 Blood Pressure 151/88 H 125/72 H Blood Pressure Mean 109 89 Pulse Ox 97 99 Oxygen Delivery Method Room Air MDM MDM MDM Narrative Medical decision making narrative: Patient presenting today with pain in his left lower extremity and has concerns for DVT. He has been immobilized in bed except for showering, eating, and going to the bathroom after having a bone marrow injection in his left ankle 3 weeks ago. He thinks that he has a clotting disorder. He does not complain of any chest pain or shortness of breath. He otherwise is well-appearing and in no acute distress. No findings of infection on exam. Venous duplex ultrasound obtained and shows a DVT from the popliteal vein down to the ankle. I did speak with Dr. Slaughter, he is comfortable with patient receiving Eliquis and he was given first dose here. He does not have any history of kidney (more content not included)... Normal [facility] Venous Duplex US, Unilateral on 08-19-2024 Venous Duplex US, Unilateral [facility] [address] [place] [address] Venous Duplex US, Unilateral 08/19/24 1201 MR#: [id number] Acct: [id number] Name: ARNALDO BARRY Rep #: [id number] : 1980 43 From: Fernando Zendejas MD Attending Dr: Status: DEP ER Ordering Dr: Viki Stone Date: 08/19/24 Location: ED Sex: M C Admitted: Reason For Study: Pain LLE RIGHT LEFT CFV is compressible, spontaneous, phasic, GSV is normal. competent and demonstrates normal CFV is compressible, spontaneous, phasic, augmentation. competent, and demonstrates normal Procedure augmentation. This is a venous duplex using B-mode, color FV is compressible, spontaneous, phasic, flow and spectral Doppler. competent and demonstrates normal Exam performed portable in ED. augmentation. A preliminary report was called and/or faxed Acute deep vein thrombosis is noted in the to Viki XIAO. POP V. It is dilated and NONCOMPRESSIBLE. Acute deep vein thrombosis is noted in the T/P Trunk. It is dilated and NONCOMPRESSIBLE. Acute deep vein thrombosis is noted in the PTV. It is dilated and NONCOMPRESSIBLE. Acute deep vein thrombosis is noted in the Per V. It is dilated and NONCOMPRESSIBLE. Acute deep vein thrombosis is noted in the SoleusV. It is dilated and NONCOMPRESSIBLE. VL/Venous Duplex US, Unilateral Interpretation Summary Acute deep vein thrombosis is noted in the left popliteal vein, tibioperoneal trunk vein, posterior tibial vein, peroneal vein, soleus vein. Ordering Physician: Viki Stone Performed By: Tessie Lopez, AMY, RVT 08/22/24 0808 Date Fernando Zendejas MD CC: Dr. Nadya Grimes MD; Dr. Melvin Nagy MD; NINOSKA Rojas Date Dictated: 08/19/24 1201 Date Transcribed: 08/22/24 0808 Harbormaster: Signed Normal [facility] HbA1c (Bld) [Mass fraction]o n 12-29-2023 Average glucose Estimated from glycated hemoglobin (Bld) [Mass/Vol] 120 mg/dL Normal Not Established [facility] Comment on above: Order Comment: Diagn osis of Diabetes-Adults Non-Diabetic: < or = 5.6% Increased risk for developing diabetes: 5.7-6.4% Diagnostic of diabetes: > or = 6.5% Monitoring of Diabetes Age (y)....................... Therapeutic Goal (%) Adults: >18.........................<7.0 Pediatrics: 13-18...................<7.5 Pediatrics: 7-12....................<8.0 Pediatrics: 0-6..................... 7.5-8.5 [place]. Diabetes Care 33(S1), Sep 2009 Performed By: #### 4 548-4 #### PATRICIA Baron ([id number]) [facility]) [address] [place] [address] Hemoglobin A1c/Hemoglobin.to daniel 12-29-2023 HbA1c (Bld) [Mass fraction] 5.8 % High see below [facility] Comment on above: Order Comment: Diagn osis of Diabetes-Adults Non-Diabetic: < or = 5.6% Increased risk for developing diabetes: 5.7-6.4% Diagnostic of diabetes: > or = 6.5% Monitoring of Diabetes Age (y)....................... Therapeutic Goal (%) Adults: >18.........................<7.0 Pediatrics: 13-18...................<7.5 Pediatrics: 7-12....................<8.0 Pediatrics: 0-6..................... 7.5-8.5 [employer]. Diabetes Care 33(S1), Sep 2009 Performed By: #### 4 548-4 #### PATRICIA Baron ([id number]) [facility] ([facility]) [address] [place] [address] Thyrotropinon 12-29-2023 TSH Qn 3.33 m[IU]/L Normal 0.44-3.98 [facility] Comment on above: Order Comment: TSH t esting is performed using different testing methodology at [facility] than at other [facility]. Direct result comparisons should only be made within the same method. Performed By: #### 3 016-3 #### PATRICIA Baron ([id number]) [facility] ([facility]) [address] [place] [address] Colonoscopy studyon 10-25-19 24 Table formatting fro m the original result was not included. Impression The ileocecal valve, cecum, ascending colon, transverse colon and sigmoid colon appeared normal. Subcentimeter polyp was removed with cold forceps biopsy Findings The ileocecal valve, cecum, ascending colon, transverse colon and sigmoid colon appeared normal.; One 1 mm hyperplastic polyp 5 cm from the anal verge; performed cold forceps biopsy with complete en bloc removal Recommendation Await pathology results Repeat colonoscopy in 7 years Indication Screening for colon cancer Staff Staff Role No Staff Documented Medications See Anesthesia Record. Preprocedure A history and physical has been performed, and patient medication allergies have been reviewed. The patient's tolerance of previous anesthesia has been reviewed. The risks and benefits of the procedure and the sedation options and risks were discussed with the patient. All questions were answered and informed consent obtained. Details of the Procedure The patient underwent monitored anesthesia care, which was administered by an anesthesia professional. The patient's blood pressure, ECG, ETCO2, heart rate, level of consciousness, oxygen and respirations were monitored throughout the procedure. A digital rectal exam was performed. A perianal exam was performed. The scope was introduced through the anus and advanced to the cecum. Retroflexion was performed in the rectum. The quality of bowel preparation was evaluated using the Clayton Bowel Preparation Scale with scores of: right colon = 3, transverse colon = 3, left colon = 3. The total BBPS score was 9. Bowel prep was adequate. The patient experienced no blood loss. The procedure was not difficult. The patient tolerated the procedure well. There were no apparent adverse events. Events Procedure Events Event Event Time ENDO SCOPE IN TIME 10/25/2023 11:47 AM ENDO CECUM REACHED 10/25/2023 11:55 AM ENDO SCOPE OUT TIME 10/25/2023 12:15 PM Specimens ID Type Source Tests Collected by Time 1 : Rectal hypoplastic polyp Tissue RECTUM POLYPECTOMY SURGICAL PATHOLOGY EXAM Shelli Carreon MA 10/25/2023 [address] [facility] External Facility [facility] [address] [facility] [id number] Referring Provider Luzma Santo MD [address] [facility] [place] [address] Procedure Provider Semaj Fitzgerald MD [facility] Work Phone: [facility] Work Phone: Radiology Study observation (narrative) [facility] Work Phone: HEMOGLOBIN A1Con 12-29-2022 Glucose [Mass/Vol] 126 mg/dL Normal [facility] Comment on above: Performed By: #### H BA1E #### [facility] [address] [place] [address] HbA1c (Bld) [Mass fraction] 6.0 % Abnormal [facility] Comment on above: Result Comment: Diag nosis of Diabetes-Adults Non-Diabetic: < or = 5.6% Increased risk for developing diabetes: 5.7-6.4% Diagnostic of diabetes: > or = 6.5% . Monitoring of Diabetes Age (y) Therapeutic Goal (%) Adults: >18 <7.0 Pediatrics: 13-18 <7.5 7-12 <8.0 0- 6 7.5-8.5 [place] [employer]. Diabetes Care 33(S1), Sep 2009. Performed By: #### H BA1E #### [facility] [address] [place] [address] LIPID PANEL (CORONARY RISK 2 )on 12-29-2022 Cholesterol [Mass/Vol] 153 mg/dL Normal 0 - 199 [facility] Comment on above: Result Comment: . AGE DESIRABLE BORDERLINE HIGH HIGH 0-19 Y 0 - 169 170 - 199 >/= 200 20-24 Y 0 - 189 190 - 224 >/= 225 >24 Y 0 - 199 200 - 239 >/= 240 All ranges are based on fasting samples. Specific therapeutic targets will vary based on patient-specific cardiac risk. . Pediatric guidelines reference:Pediatrics 2011, 128(S5). Adult guidelines reference: NCEP ATPIII Guidelines, DAVID 2001, 258:5316-97 . Venipuncture immediately after or during the administration of Metamizole may lead to falsely low results. Testing should be performed immediately prior to Metamizole dosing. Performed By: #### L IPID #### [facility] [address] [place] [address] Cholesterol in HDL [Mass/Vol] 44.6 mg/dL Normal [facility] Comment on above: Result Comment: . AGE VERY LOW LOW NORMAL HIGH 0-19 Y < 35 < 40 40-45 ---- 20-24 Y ---- < 40 >45 ---- >24 Y ---- < 40 40-60 >60 . Performed By: #### L IPID #### [facility] [address] [place] [address] Cholesterol in LDL [Mass/Vol] 89 mg/dL Normal 0 - 99 [facility] Comment on above: Result Comment: . NEAR BORD AGE DESIRABLE OPTIMAL HIGH HIGH VERY HIGH 0-19 Y 0 - 109 --- 110-129 >/= 130 ---- 20-24 Y 0 - 119 --- 120-159 >/= 160 ---- >24 Y 0 - 99 100-129 130-159 160-189 >/=190 . Performed By: #### L IPID #### [facility] [address] [place] [address] Cholesterol in VLDL [Mass/Vol] 20 mg/dL Normal 0 - 40 [facility] Comment on above: Performed By: #### L IPID #### [facility] [address] [place] [address] Cholesterol.total/Ch olesterol in HDL [Mass ratio] 3.4 {ratio} Normal [facility] Comment on above: Result Comment: REF VALUES DESIRABLE < 3.4 HIGH RISK > 5.0 Performed By: #### L IPID #### [facility] [address] [place] [address] Triglyceride [Mass/Vol] 98 mg/dL Normal 0 - 149 [facility] Comment on above: Result Comment: . AGE DESIRABLE BORDERLINE HIGH HIGH VERY HIGH 0 D-90 D 19 - 174 ---- ---- ---- 91 D- 9 Y 0 - 74 75 - 99 >/= 100 ---- 10-19 Y 0 - 89 90 - 129 >/= 130 ---- 20-24 Y 0 - 114 115 - 149 >/= 150 ---- >24 Y 0 - 149 150 - 199 200- 499 >/= 500 . Venipuncture immediately after or during the administration of Metamizole may lead to falsely low results. Testing should be performed immediately prior to Metamizole dosing. Performed By: #### L IPID #### [facility] [address] [place] [address] TSHon 12-29-2022 TSH Qn 2.76 m[IU]/L Normal 0.44 - 3.98 [facility] Comment on above: Result Comment: TSH testing is performed using different testing methodology at [facility] than at other [facility]. Direct result comparisons should only be made within the same method. Performed By: #### T SH2 #### [facility] [address] [place] [address] TSHon 12-28-2022 Lab Specimen Source Normal [facility] Comment on above: Performed By: #### T SH2 #### [facility] [address] [place] [address] Performed By: #### H BA1E #### [facility] [address] [place] [address] No Panel Informationon 06-25 Not at all - 0 [facility] Work Phone: Over half the days - 2 [facility] Work Phone: Nearly every day - 3 [facility] Work Phone: Moderate Anxiety [facility] Work Phone: Somewhat difficult [facility] Work Phone: Comment on above: How difficult have t hose problems made it for you to do your work, take care of things at home, or get along with other people? 14 1 [facility] Work Phone: Comment on above: Over the last two we eks, how often have you been bothered by the following problems? Feeling nervous, anxious, or on edge: Over half the days - 2Not being able to stop or control worrying: Over half the days - 2Worrying too much about different things: Nearly every day - 3Trouble relaxing: Nearly every day - 3Being so restless that it's hard to sit still: Over half the days - 2Becoming easily annoyed or irritable: Over half the days - 2Feeling afraid as if something awful might happen: Not at all - 0 Office Visit (Primary Care T xt/Forms)on 06-25-2022 Follow-up visit Diagnoses/Problems Assessed Prediabetes (790.29) (R73.03) PTSD (post-traumatic stress disorder) (309.81) (F43.10) ANUPAM (obstructive sleep apnea) (327.23) (G47.33) 2018- PSG- mild- started CPAP- saw Dr Sterling but unable to use CPAP- uses mouth appliance Abnormal TSH (790.6) (R79.89) 10/2021; TSH normal 11/2021 Encounter for immunization (V03.89) (Z23) BMI 35.0-35.9,adult (V85.35) (Z68.35) Class 2 obesity with body mass index (BMI) of 35.0 to 35.9 in adult (278.00,V85.35) (E66.9,Z68.35) 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 The amount and/or complexity of data reviewed and analyzed is considered moderate. The risk of complications and/or morbidity/mortality of patient is considered moderate. Overall, this patient encounter is considered a moderate risk visit. Patient's BMI is elevated. Plan- diet and exercise- BMI is elevated. Need to increase activity on a daily basis especially walking. Monitor total calories per day- decrease carbohydrates and fats. Goal - lose 1-2 pounds per week. Recommend 150 minutes of moderate-intensity exercise as tolerated per week and 2-3 days of resistance, flexibility, and neuromotor exercises per week. Normal BMI- 18.5-25 Overweight= BMI 26-29 Obese= BMI 30-39 Morbidly Obese = BMI >40 Common side effects or health problems may include: Headache Nausea Insomnia Weakness Dizziness Ejaculation disorder Drowsiness Dry mouth Sweating Loss of appetite Nervousness Inability to orgasm Weight loss Abnormal vision High blood pressure (hypertension) Impotence Numbness and tingling Tremor Vasodilation Vomiting Weight gain Gas (flatulence) Itching Yawning Indigestion Twitching Dilated pupils Other side effects of venlafaxine include: Agranulocytosis Anemia Aneurism Bacteremia Fainting Muscle weakness Reduced urination Skin swelling Suicide ideation/attempt Chief Complaint pt presents for f/u depression History of Present Illness pt is here for f/u anxiety, depression, PTSD, ANUPAM- no CPAP, prediabetes, nightmare d/o, panic attacks, elevated BMI , vit d pt has no concerns at this time pt is unsure of refills at this time pt has been referred to psychiatrist- reviewed PN- 12/09/21-Dr Moe-/Dr Parson- - per PN- considering stopping Wellbutrin if anxiety persists and considering starting Abilify- 2 mg daily ( max 15 mg daily) on hydroxyzine for panic attacks scales reviewed ANUPAM/CPAP- managed by Pulm- Dr Sandy- reviewed PN 8/10/22- not using CPAP machine reviewed PN Rheum Dr Bermudez 03/20/22 pt state sthat he stopped taking the cosentyx - too expensive due for labs started 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 Little interest or pleasure in doing things - more than half the days 2. Feeling down, depressed or hopeless - more than half the days 3. Trouble falling asleep or sleeping too much - several days 4. Feeling tired or having little energy - nearly every day 5. Poor appetite or overeating - several days 6. Feeling bad about self or failure or letting others down - more than half the days 7. Trouble concentrating on things - more than half the days 8. Moving / speaking slowly or fidgety / restless - nearly every day 9. Thought would be better off or hurting self - several days Severity of depression is moderately severe. How difficult have these problems made it for you to do your work, take care of things at home, or get along with people? Somewhat difficult. Generalized Anxiety Disorder 7 - Item Scale (ELMER-7): Over the last 2 weeks, how often have you been bothered by the following problems? Feeling nervous, anxious or on edge: More than half the days = 2 Not being able to stop or control worrying: More than half the days = 2 Worrying too much about different things: Nearly every day = 3 Trouble relaxing: More than half the days = 2 Being so restless that it is hard to sit still: More than half the days = 2 Becoming easily annoyed or irritable: Several days = 1 Feeling afraid as if something awful might happen: Several days = 1 Total score: 13. PHQ-9 Printed in Appendix #1 below. ELMER-7 [id number] ELMER-7 Total Score14 4 5 Feeling nervous, anxious or on edgeOver half the days - 2 Several days - 1 Over half the days - 2 Not being abl (more content not included)... Normal [facility] PHQ-2 VITALSon 06-25-2022 Adult depression screening assessment Yes [facility] Work Phone: PHQ-2 VITALS 1-Several days [facility] Work Phone: PHQ-2 VITALS 2-More than half the days [facility] Work Phone: PHQ-2 VITALS 0-Not at all [facility] Work Phone: PHQ-2 VITALS Somewhat Difficult [facility] Work Phone: PHQ-2 VITALS Large [facility] Work Phone: Follow Up (Pulmonary Medicin e)on 04-15-2022 Follow Up (Pulmonary Medicine) Diagnoses/Problems Obstructive sleep apnea syndrome, moderate (327.23) (G47.33) History of continuous positive airway pressure (CPAP) therapy at home (V46.8) (Z99.89) Provider Impressions Impressions: 1. Obstructive sleep apnea syndrome. 2. Compliant with CPAP therapy. Recommendations: 1. Follow-up what guidance was given to him by [facility] with the change in the mask and turning humidity off. 2. He has any further problems or questions about his sleep or CPAP device he is welcome to contact our office. 3. We will follow-up with the patient in 3 months. This note was transcribed using the [employer] Dictation system. There may be grammatical, punctuation, or verbiage errors that occur with voice recognition programs. Chief Complaint ARNALDO BARRY is here for a 1 month follow-up. Reason for Visit: ANUPAM on APAP. Appointment requested by: Dr. Grimes. History of Present IllnessPatient was seen today on a 1 month follow-up visit. He has obstructive sleep apnea and is using an APAP device. He reports that [facility] changed him to nasal pillows and turned the humidity off so that he no longer has problems with collection of water in his mask. He feels much better in the morning. He was set up on the device on 02/17/2022. His compliance download over the last 30 days shows 100% usage and 70% of the time was greater than 4 hours. He is currently averaging about 4 and half hours a night. He is on 20/5 cm of water pressure with an EPR of 2. His maximum pressure is 9.9. His maximum leak is 27.9 L/min and his AHI is 2.0. Review of Systems Patient denies any nasal dryness currently, sore throat, snoring or EDS. And he is not smoking. All other review of systems were noncontributory. Refer to the HPI. 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) Daytime somnolence (780.54) (R40.0) Depression, major, recurrent, in remission (296.35) (F33.40) Depression, major, recurrent, mild (296.31) (F33.0) Depression, major, single episode, severe (296.23) (F32.2) Eczema (692.9) (L30.9) Encounter for immunization (V03.89) (Z23) Encounter for physical examination related to employment (V70.5) (Z02.89) Encounter for vitamin deficiency screening (V77.99) (Z13.21) History of continuous positive airway pressure (CPAP) therapy at home (V46.8) (Z99.89) HLA B27 (HLA B27 positive) (V84.89) (Z15.89) 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 Dr Bashir, ankylosing spondylitis Medication monitoring encounter (V58.83) (Z51.81) Moderate anxiety (300.00) (F41.9) Moderate episode of recurrent major depressive disorder (296.32) (F33.1) Moderately severe recurrent major depression (296.30) (F33.2) 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) Obstructive sleep apnea syndrome, moderate (327.23) (G47.33) ANUPAM (obstructive sleep apnea) (327.23) (G47.33) 2018- PSG- mild- started CPAP- saw Dr Sterling but unable to use CPAP- uses mouth appliance Panic attack (300.01) (F41.0) Post traumatic stress disorder (PTSD) (309.81) (F43.10) Prediabetes (790.29) (R73.03) Psoriatic arthropathy (696.0) (L40.50) PTSD (post-traumatic stress disorder) (309.81) (F43.10) Severe anxiety (300.00) (F41.9) Snoring (786.09) (R06.83) Past Medical History History of Acute pain of left knee (719.46) (M25.562) Resolved Date: 23 Oct 2021 History of Cellulitis of finger (681.00) (L03.019) Resolved Date: 25 Oct 2017 History of Elevated liver enzymes (790.5) (R74.8) Resolved Date: 25 Oct 2017 History of Excessive daytime sleepiness (780.54) (G47.19) Resolved Date: 05 Aug 2018 History of Finger pain (729.5) (M79.646) Resolved Date: 25 Oct 2017 History of Grief reaction (309.0) (F43.21) Resolved Date: 23 Oct 2021 History of abdominal pain (V13.89) (Z87.898) Resolved Date: 23 Oct 2021 History of anemia (V12.3) (Z86.2) Resolved Date: 25 Oct 2017 History of cough Resolved Date: 23 Oct 2021 History of depression (V11.8) (Z86.59) Resolved Date: 26 Oct 2017 History of fatigue (V13.89) (Z87.898) Resolved Date: 05 Aug 2018 History of fatigue (V13.89) (Z87.898) Resolved Date: 04 Jul 2020 History of flank pain (V13.89) (Z87.898) Resolved Date: 23 Oct 2021 History of muscle spasm (V13.59) (Z87.39) Resolved Date: 25 Oct 2017 History of neck pain (V13.59) (Z87.39) Resolved Date: 25 Oct 2017 History of obesity (V12.29) (Z86.39) Resolved Date: 23 Aug 2019 History of snoring (V15.89) (Z87 (more content not included)... 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 Dr Bashir, ankylosing spondylitis Orders Arthralgia of multiple joints, HLA B27 (HLA B27 positive) Renew: Hydroxychloroquine Sulfate 200 MG Oral Tablet; Take 1 tablet daily Rx By: Mason Bermudez; Dispense: 90 Days ; #:90 Tablet; Refill: 1;For: Arthralgia of multiple joints, HLA B27 (HLA B27 positive); SIMONE = N; Sent To: [employer] [facility]; Last Updated By: [email or web address]; 03/20/2022 9:50:21 AM HLA-B27 spondyloarthropathy C Reactive Protein, Serum; Status:Active; Requested for:[id number]; Perform:Lab Services - Lab To Draw (Blood Test); Due:[id number];Ordered; For:HLA-B27 spondyloarthropathy; Ordered By:Mason Bermudez; Sedimentation Rate, Erythrocyte; Status:Active; Requested for:[id number]; Perform:Lab Services - Lab To Draw (Blood Test); Due:[id number];Ordered; For:HLA-B27 spondyloarthropathy; Ordered By:Mason Bermudez; HLA-B27 spondyloarthropathy, Psoriatic arthropathy Renew: Cosentyx Sensoready Pen 150 MG/ML Subcutaneous Solution Auto-injector; Inject 1 pen (150 mg/mL) SQ every 4 weeks Rx By: Mason Bermudez; Dispense: 0 Days ; #:3 X Milliliter; Refill: 3;For: HLA-B27 spondyloarthropathy, Psoriatic arthropathy; SIMONE = N; [facility]: [facility]; Msg to Pharmacy: Qty is 3 pens inject 1 pen every 4 weeks; Last Updated By: System, [employer]; 03/20/2022 9:50:22 AM History of Present Illness He continues to note morning stiffness and may have pain in various joints at different times. However the musculoskeletal pain is less intense than it had been previously. He has not noted any rashes or uveitis symptoms. He had a recent ophthalmology evaluation. The lungs, heart, abdomen, and extremities are benign. The musculoskeletal examination shows preserved range of motion of upper and lower extremity joints without joint swelling. The Elidia test is 10 to 13 cm. She has HLA-B27 positive ankylosing spondylitis, history of bilateral plantar fasciitis, osteoarthritis, obstructive sleep apnea, status post left ankle reconstruction, status post remote bilateral clavicle fractures, PTSD, depression. He is to continue hydroxychloroquine 200 mg daily and Cosentyx 150 mg subcutaneously every 4 weeks. He is to have laboratory for ESR and CRP prior to next office visit. He is to return at the next available office appointment. 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.52) Daytime somnolence (780.54) (R40.0) Depression, major, recurrent, in remission (296.35) (F33.40) Depression, major, recurrent, mild (296.31) (F33.0) Depression, major, single episode, severe (296.23) (F32.2) Eczema (692.9) (L30.9) Encounter for immunization (V03.89) (Z23) Encounter for physical examination related to employment (V70.5) (Z02.89) Encounter for vitamin deficiency screening (V77.99) (Z13.21) History of continuous positive airway pressure (CPAP) therapy at home (V46.8) (Z99.89) HLA B27 (HLA B27 positive) (V84.89) (Z15.89) 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 Dr Bashir, ankylosing spondylitis Medication monitoring encounter (V58.83) (Z51.81) Moderate anxiety (300.00) (F41.9) Moderate episode of recurrent major depressive disorder (296.32) (F33.1) Moderately severe recurrent major depression (296.30) (F33.2) 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) Obstructive sleep apnea syndrome, moderate (327.23) (G47.33) ANUPAM (obstructive sleep apnea) (327.23) (G47.33) 2018- PSG- mild- started CPAP- saw Dr Sterling but unable to use CPAP- uses mouth appliance Panic attack (300.01) (F41.0) Post traumatic stress disorder (PTSD) (309.81) (F43.10) Prediabetes (790.29) (R73.03) Psoriatic arthropathy (696.0) (L40.50) PTSD (post-traumatic stress disorder) (309.81) (F43.10) Severe anxiety (300.00) (F41.9) Snoring (786.09) (R06.83) Past Medical History Problems History of Acute pain of left knee (719.46) (M25.562) Resolved Date: 23 Oct 2021 History of Cellulitis of finger (681.00) (L03.019) Resolved Date: 25 Oct 2017 History of Elevated liver enzymes (790.5) (R74.8) Resolved Date: 25 Oct 2017 History of Excessive daytime sleepiness (780.54) (G47.19) Resolved Date: 05 Aug 2018 History of Finger pain (729.5) (M79.646) Resolved Date: 25 Oct 2017 History of Grief reaction (309.0) (F43.21) Resolved Date: 23 Oct 2021 History of abdominal pain (V13.89) (Z87.898) Resolved Date: (more content not included)... Normal [employer] Tobacco Screening.on 022 Fall risk assessment a) No falls within the last year [facility] [address] Work Phone: Tobacco use status CPHS b) No [facility] [address] Work Phone: Follow Up (Pulmonary Medicin e)on 03-12-2022 Follow Up (Pulmonary Medicine) Diagnoses/Problems Obstructive sleep apnea syndrome, moderate (327.23) (G47.33) History of continuous positive airway pressure (CPAP) therapy at home (V46.8) (Z99.89) Complaint of nasal congestion (478.19) (R09.81) Provider Impressions Impressions: 1. Moderate obstructive sleep apnea. 2. Currently on APAP therapy. 3. Problems with increased humidification of the nasal mask. Recommendations: 1. Refer to my above the comments in regards to contacting the [employer] for assistance. 2. I also suggested in my above notes another mask option for him. 3. Continue with using the CPAP every night. 4. Follow-up with the patient in 1 month and do a compliance download at that time. This note was transcribed using the [employer] Dictation system. There may be grammatical, punctuation, or verbiage errors that occur with voice recognition programs. Chief Complaint ARNALDO BARRY is here for a 3 week follow-up. Reason for Visit: ANUPAM on APAP, setup date 02/17/22 with [employer] [facility]. Appointment requested by: Dr. Aurora Grimes. History of Present IllnessPatient was seen today on a 3-week follow-up visit in regards to his APAP therapy for his obstructive sleep apnea. Patient had an in lab study which showed an RDI of 17.9. On his current APAP device set at 20/5 his AHI was 2.1 and his usage over the last 22 days was 59% of the time greater than or equal to 4 hours. He did use the device every day over the last 22 days. He reports having a lot of problems with moisture around his nose. He has a standard full nose mask and he generally has to have that removed at about 4 hours to clear out moisture. He reports that the APAP is set with the moisture on auto and he has a heated tubing with that. I explained to him that this may be delivering significantly more humidity than what he actually needs. His DME company is [employer] and I suggested that he contact them in regards to adjustments. I suggested that he use the mask during the daytime instead of when he is trying to sleep at nighttime to acclimate more quickly to the device. I also demonstrated for him the PHOTOGRAM[employer] COMPIL[employer]IST Jose mask, which is very small nose mask. He is currently using a large wisp mask. Review of Systems No change on review of systems. 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) (G47.52) Daytime somnolence (780.54) (R40.0) Depression, major, recurrent, in remission (296.35) (F33.40) Depression, major, recurrent, mild (296.31) (F33.0) Depression, major, single episode, severe (296.23) (F32.2) Eczema (692.9) (L30.9) Encounter for immunization (V03.89) (Z23) Encounter for physical examination related to employment (V70.5) (Z02.89) Encounter for vitamin deficiency screening (V77.99) (Z13.21) HLA B27 (HLA B27 positive) (V84.89) (Z15.89) 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 Dr Bashir, ankylosing spondylitis Medication monitoring encounter (V58.83) (Z51.81) Moderate anxiety (300.00) (F41.9) Moderate episode of recurrent major depressive disorder (296.32) (F33.1) Moderately severe recurrent major depression (296.30) (F33.2) 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) Obstructive sleep apnea syndrome, moderate (327.23) (G47.33) ANUPAM (obstructive sleep apnea) (327.23) (G47.33) 2018- PSG- mild- started CPAP- saw Dr Sterling but unable to use CPAP- uses mouth appliance Panic attack (300.01) (F41.0) Post traumatic stress disorder (PTSD) (309.81) (F43.10) Prediabetes (790.29) (R73.03) Psoriatic arthropathy (696.0) (L40.50) PTSD (post-traumatic stress disorder) (309.81) (F43.10) Severe anxiety (300.00) (F41.9) Snoring (786.09) (R06.83) Past Medical History History of Acute pain of left knee (719.46) (M25.562) Resolved Date: 23 Oct 2021 History of Cellulitis of finger (681.00) (L03.019) Resolved Date: 25 Oct 2017 History of Elevated liver enzymes (790.5) (R74.8) Resolved Date: 25 Oct 2017 History of Excessive daytime sleepiness (780.54) (G47.19) Resolved Date: 05 Aug 2018 History of Finger pain (729.5) (M79.646) Resolved Date: 25 Oct 2017 History of Grief reaction (309.0) (F43.21) Resolved Date: 23 Oct 2021 History of abdominal pain (V13.89) (Z87.898) Resolved Date: 23 Oct 2021 History of anemia (V12.3) (Z86.2) Resolved Date: 25 Oct 2017 History of cough Resolved Date: 23 Oct 2021 History of depression (V11.8) (Z86.59) Resolved Date: 26 Oct 2017 History of fatigue (V13.89) (Z87.898) Resolved Date: 05 Aug 2018 History (more content not included)... Normal [employer] Tobacco Screening.on 022 Fall risk assessment a) No falls within the last year [facility] DO Work Phone: Tobacco use status [facility] b) No [facility] Work Phone: Follow Up (Pulmonary Medicin e)on 01-15-2022 Follow Up (Pulmonary Medicine) Diagnoses/Problems Obstructive sleep apnea syndrome, moderate (327.23) (G47.33) Orders Positive Airway Pressure (PAP) Therapy; Status:Active; Requested for:15Jan2022; Perform:Other; Due:20Jan2022; Last Updated By:Berta Blanc; 01/15/2022 4:00:08 PM;Ordered; For:ANUPAM (obstructive sleep apnea); Ordered By:Dillon Sandy; Staff Performing Instructions (new machine setup only) : Please fax patient's demographics, current insurance information, recent testing (home sleep apnea test, in-lab sleep study, or oximetry test), and signed clinic note summary along with this order to the corresponding DME company. Additional Instructions to DME : Please enroll patient's name in [employer] or [employer] if applicable. Performing Instructions to DME Supplier : For new machine setup or recent adjustment of current PAP settings, please fax 30-day PAP adherence download data to the office. Other Performing Location / DME : [facility] Heated PAP tubing (A4604), non-heated PAP tubing (A7037) - 1 per 6 months : Yes Water chamber (A7046), Non-disposable filters (A7039) (if applicable) - 1 per 6 months : Yes Headgear used with PAP mask (A7035), Chin Strap (A7036) - 1 per 6 months : Yes Full face cushions (A7031) - 1 per month : Yes Nasal cushions (A7032), nasal pillows (A7033), disposable filters (A7038) - 2 per month : Yes Nasal mask (A7034), Pillow mask (A7034), Full face mask (A7030) - 1 per 3 months : Yes New PAP supplies: Order / Replace as needed, whichever is applicable, as per insurance schedule : Yes Mask Type (selection required with new machine setup order) : Patient preference Heated Humidification (E0562) (applies only if PAP device is ordered) : Yes Pressure range in cm H2O : 5-20 cm H2O AutoCPAP (E0601) : Yes 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 Moderate obstructive sleep apnea syndrome. Recommendations: 1. He has been set up with [facility] for his APAP machine and supplies. 2. We will follow-up with the patient 3 weeks after he starts therapy. 3. Patient was instructed to contact our office if he is having any concerns or questions about the APAP set up. This note was transcribed using the VirtualU Dictation system. There may be grammatical, punctuation, or verbiage errors that occur with voice recognition programs. This note was transcribed using the VirtualU Dictation system. There may be grammatical, punctuation, or verbiage errors that occur with voice recognition programs. Chief Complaint ARNALDO BARRY is here for a follow-up visit. Reason for Visit: Sleep Study. Appointment requested by: Dr. Grimes. History of Present IllnessPatient was seen today in the office to review his in lab polysomnogram. The results from those showed that he has a RDI of 17.9. His lowest oxygen saturation was 82% and he only spent 8 minutes less than or equal 88% during the entire study. I reviewed all the results with the patient and answered all questions that he had to his satisfaction. We also talked about therapy which I recommended a APAP device and we also talked about local DME companies provided we can obtain a high-quality APAP machine. 20 minutes of [id number] time covering the above were spent with the patient. Review of Systems Patient denies any changes in his review of systems. Refer to the HPI. 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) (G47.52) Daytime somnolence (780.54) (R40.0) Depression, major, recurrent, in remission (296.35) (F33.40) Depression, major, recurrent, mild (296.31) (F33.0) Depression, major, single episode, severe (296.23) (F32.2) Eczema (692.9) (L30.9) Encounter for immunization (V03.89) (Z23) Encounter for physical examination related to employment (V70.5) (Z02.89) Encounter for vitamin deficiency screening (V77.99) (Z13.21) HLA B27 (HLA B27 positive) (V84.89) (Z15.89) 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 worryingNot at all - 0 Not at all - 0 Several days - 1 Worrying too much about different thingsSeveral days - 1 Over half the days - 2 Over half the days - 2 Trouble relaxingSeveral days - 1 Not at all - 0 Several days - 1 Being so restless that it's hard to sit stillSeveral days - 1 Not at all - 0 Over half the days - 2 Becoming easily annoyed or irritableNot at all - 0 Several days - 1 Over half the days - 2 Feeling afraid as if something awful might happenNot at all - 0 Not at all - 0 Not at all - 0 Active Problems Problems Ankylosing spondylitis (720.0) (M45.9) Anxiety, mild (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 Normal [facility] TSH - Thyroid Stimulating Ho rmone, Serumon 10-24-2021 TSH Qn 4.06 m[IU]/L above high threshold See Below [facility]-Gastroente rology-Chagri n [facility] Work Phone: Comment on above: Reference Range: 0.4 4 - 3.98 TSH testing is performed using different testing methodology at [facility] than at other [facility]. Direct result comparisons should only be made within the same method. Tobacco Screening.on 022 Tobacco use status CPHS a) Yes [facility] Work Phone: Follow Up (Rheumatology)on 10-17-2021 Follow Up (Rheumatology) Chief Complaint Follow up appointment. History of Present IllnessHe notes that the lower back pain has been less intensively has intermittent exacerbations since starting the Cosentyx. He does note locking of the third digit of the right hand is become more significant recently. He has not noted any uveitis symptoms, a significant diarrhea or pain involving any of his other joints other than some discomfort in the left heel where he had prior surgery. Examination shows the lungs, heart, abdomen, and extremities to be benign. Musculoskeletal examination did not show any joint effusions. There is mild tenderness in the posterior aspect of the left ankle without joint effusion. There is locking of the third digit of the right hand with the tiny nodule in the proximal aspect of the flexor tendon. HLA-B27 positive ankylosing spondylitis, history of bilateral plantar fasciitis, obstructive sleep apnea, osteoarthritis, flexor tendinitis of the third digit on the right hand, remote bilateral clavicle fractures, PTSD. He is to continue hydroxychloroquine 200 mg daily Cosentyx 150 mg subcutaneously every 4 weeks. He was given a local injection of triamcinolone 10 mg with 0.5 mL of 1% lidocaine to the flexor tendon of the third digit of the right hand. He is to return at the next available office appointment. Active Problems Problems Abdominal pain (789.00) (R10.9) Acute pain of left knee (719.46) (M25.562) Ankylosing spondylitis (720.0) (M45.9) Dr Bashir Anxiety, mild (300.00) (F41.9) Arthralgia of multiple joints (719.49) (M25.50) 2019 Dr Bermudez Back pain (724.5) (M54.9) BMI 33.0-33.9,adult (V85.33) (Z68.33) 10/2017 referred nutrition; 12/22 saw nutrtiotion Cough (786.2) (R05.9) Depression, major, recurrent, in remission (296.35) (F33.40) Depression, major, recurrent, mild (296.31) (F33.0) Eczema (692.9) (L30.9) Encounter for immunization (V03.89) (Z23) Encounter for physical examination related to employment (V70.5) (Z02.89) Encounter for vitamin deficiency screening (V77.99) (Z13.21) Flank pain (789.09) (R10.9) Grief reaction (309.0) (F43.21) HLA B27 (HLA B27 positive) (V84.89) (Z15.89) 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 Dr Bashir, ankylosing spondylitis Hospital discharge follow-up (V67.59) (Z09) Moderate anxiety (300.00) (F41.9) 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) ANUPAM (obstructive sleep apnea) (327.23) (G47.33) 2018- PSG- mild- started CPAP- saw Dr Sterling but unable to use CPAP- uses mouth appliance Post traumatic stress disorder (PTSD) (309.81) (F43.10) Prediabetes (790.29) (R73.03) Psoriatic arthropathy (696.0) (L40.50) PTSD (post-traumatic stress disorder) (309.81) (F43.10) Quadriceps strain, left, initial encounter (843.8) (S76.112A) Severe anxiety (300.00) (F41.9) Suprapatellar bursitis (726.69) (M70.50) Past Medical History Problems History of Cellulitis of finger (681.00) (L03.019) Resolved Date: 25 Oct 2017 History of Elevated liver enzymes (790.5) (R74.8) Resolved Date: 25 Oct 2017 History of Excessive daytime sleepiness (780.54) (G47.19) Resolved Date: 05 Aug 2018 History of Finger pain (729.5) (M79.646) Resolved Date: 25 Oct 2017 History of anemia (V12.3) (Z86.2) Resolved Date: 25 Oct 2017 History of depression (V11.8) (Z86.59) Resolved Date: 26 Oct 2017 History of fatigue (V13.89) (Z87.898) Resolved Date: 05 Aug 2018 History of fatigue (V13.89) (Z87.898) Resolved Date: 04 Jul 2020 History of muscle spasm (V13.59) (Z87.39) Resolved Date: 25 Oct 2017 History of neck pain (V13.59) (Z87.39) Resolved Date: 25 Oct 2017 History of obesity (V12.29) (Z86.39) Resolved Date: 23 Aug 2019 History of snoring (V15.89) (Z87.898) Resolved Date: 05 Aug 2018 History of Wrist fracture, left (814.00) (S62.102A) Resolved Date: 25 Feb 201901/2018- Dr Lee Surgical History Problems History of Ankle Surgery History of Open Treatment Of Carpometacarpal Thumb Fract./Dislocation History of Wrist Surgery 01/2018- left- Dr Lee, including base of thumb Family History Mother Family history of deep venous thrombosis (V17.49) (Z82.49) Family history of Mitral valve problem Father Family history of Alcohol abuse by father Grandparent Family history of Alcohol abuse by father Maternal Grandmother Family history of Family history of lung cancer (V16.1) (Z80.1) Paternal Grandmother Family history of Family history of lung cancer (V16.1) (Z80.1) Maternal Great Grandfather Family history of Family history of lung cancer (V16.1) (Z80.1) Paternal Great Grandfather Family history of Family history of lung cancer (V16.1) (Z80.1) Social History Problems Consumes alcohol occasionally (V49.89) (Z78.9) Daily caffeine consumption, 4-5 servings a day Does not use illicit drugs (V49.89) (Z78.9) Does not use tobacco (V49.89) (Z78.9) Former smoker (V15.82) (Z87.891) (more content not included)... [facility] Tobacco Screening.on 022 Fall risk assessment a) No falls within the last year -Rheumatolo [facility] [address] Work Phone: Tobacco use status CPHS a) Yes MG-Rheumatolo [facility] [address] Work Phone: Tobacco Screening. Yes MG-Rhe umatolo [facility] [address] [employer] Work Phone: Hepatitis B Surface Antibody on 07-29-2021 HBV surface Ag IA Ql <3.1 <10 MG-R heumatolo [facility] Work Phone: Comment on above: SOURCE: INTERPRETIVE CRITERIA:<10 mIU/mL....NONREACTIVE >=10 mIU/mL...REACTIVE . Biotin interference may cause falsely decreased results. Patients taking a Biotin dose of up to 5 mg/day should refrain from taking Biotin for 24 hours before sample collection. Providers may contact their local laboratory for further information. Hepatitis C Antibody Teston 07-29-2021 Hepatitis C Antibody Test Non-Reactive See Below [facility]-Rheumatolo [facility] Work Phone: Comment on above: SOURCE: Reference Ra nge: NONREACTIVE Results from patients taking biotin supplements or receiving high-dose biotin therapy should be interpreted with caution due to possible interference with this test. Providers may contact their local laboratory for further information. SOURCE: Reference Ra nge: NONREACTIVE Biotin interference may cause falsely decreased results. Patients taking a Biotin dose of up to 5 mg/day should refrain from taking Biotin for 24 hours before sample collection. Providers may contact their local laboratory for further information. T-SPOT. TBon 07-29-2021 T-SPOT. TB Passed MG-Rheumatolo [place] [id number] [facility] Work Phone: T-SPOT. TB 1 1 MG-Rheumatolo [facility] [address] [facility] Work Phone: T-SPOT. TB 0 1 MG-Rheumatolo [place] [id number] [facility] Work Phone: T-SPOT. TB Negative See Below -Rheumatolo [address] Work Phone: Comment on above: Reference Range: Nor mal Value: NegativeA negative test result does not exclude the possibility of exposure to or infection with Mycobacterium tuberculosis (M. tuberculosis). Patients with recent exposure to TB infected individuals exhibiting a negative T-SPOT.TB result should be considered for retesting within 6 weeks or if other relevant clinical symptoms indicate. Results from T-SPOT.TB testing must be used in conjunction with each individual's epidemiological history, current medical status, and results of other diagnostic evaluations. The T-SPOT.TB test is qualitative and results are reported as positive, borderline or negative, given that the test controls perform as expected. In line with the Centers for Disease Control and Prevention's 2010 recommendation to report quantitative measurements alongside the qualitative result, the laboratory provides spot counts for informational purposes only. The T-SPOT.TB test should not be interpreted as a quantitative test. Amylase, Serumon 06-03-2021 Amylase [Catalytic activity/Vol] 30 U/L 29 - 103 [facility] Work Phone: Blood Pressure Cuff Sizeon 0 06-03-2021 Tobacco use status CPHS b) No [facility] Work Phone: Blood Pressure Cuff Size Large [facility] Work Phone: Hepatic Function Panelon Albumin BCP dye [Mass/Vol] 4.3 g/dL 3.4 - 5.0 [facility] Work Phone: ALP [Catalytic activity/Vol] 57 U/L 33 - 120 [facility] Work Phone: [phone] ALT With P-5'-P [Catalytic activity/Vol] 41 U/L 10 - 52 [facility] Work Phone: [phone] Comment on above: Patients treated wit h Sulfasalazine may generate falsely decreased results for ALT. AST With P-5'-P [Catalytic activity/Vol] 24 U/L 9 - 39 [facility] Work Phone: [phone] Bilirubin [Mass/Vol] 0.3 mg/dL 0.0 - 1.2 [facility] Work Phone: [phone] Bilirubin.direct [Mass/Vol] 0.1 mg/dL 0.0 - 0.3 [facility] Work Phone: Protein [Mass/Vol] 7.2 g/dL 6.4 - 8.2 [facility] Work Phone: [phone] IO UA (automated w/o microsc opy)on 06-03-2021 Protein (U) [Mass/Vol] Negative [facility] Work Phone: [phone] IO UA (automated w/o microscopy) Negative [facility] Work Phone: [phone] IO UA (automated w/o microscopy) Normal (0.2-1.0 mg/dl) [facility] Work Phone: IO UA (automated w/o microscopy) 5.5 1 [facility] Work Phone: IO UA (automated w/o microscopy) 1.030 1 [facility] Work Phone: IO UA (automated w/o microscopy) Clear [facility] Work Phone: IO UA (automated w/o microscopy) Yellow [facility] Work Phone: [phone] Laboratory - Chemistry and C hemistry - challengeon 06-03-2021 Anion gap [Moles/Vol] 12 mmol/L 10 - 20 [facility] Work Phone: Calcium [Mass/Vol] 9.6 mg/dL 8.6 - 10.6 [facility] Work Phone: Chloride [Moles/Vol] 104 mmol/L 98 - 107 [facility] Work Phone: CO2 [Moles/Vol] 28 mmol/L 21 - 32 [facility] Work Phone: Creatinine [Mass/Vol] 1.12 mg/dL See Below [facility] Work Phone: Comment on above: Reference Range: 0.5 0 - 1.30 Glucose [Mass/Vol] 98 mg/dL 74 - 99 [facility] Work Phone: Potassium [Moles/Vol] 4.0 mmol/L 3.5 - 5.3 [facility] Work Phone: Sodium [Moles/Vol] 140 mmol/L 136 - 145 [facility] Work Phone: Urea nitrogen [Mass/Vol] 16 mg/dL 6 - 23 [facility] Work Phone: Laboratory - Hematology and Cell countson 06-03-2021 Erythrocyte distribution width (RBC) [Ratio] 14.1 % See Below [facility] Work Phone: Comment on above: Reference Range: 11. 5 - 14.5 Hematocrit (Bld) [Volume fraction] 41.5 % See Below [facility] Work Phone: Comment on above: Reference Range: 41. 0 - 52.0 Hemoglobin (Bld) [Mass/Vol] 13.7 g/dL See Below [facility] Work Phone: Comment on above: Reference Range: 13. 5 - 17.5 MCHC (RBC) [Mass/Vol] 33.0 g/dL See Below [facility] Work Phone: Comment on above: Reference Range: 32. 0 - 36.0 MCV (RBC) [Entitic vol] 89 fL 80 - 100 [facility] Work Phone: Platelets (Bld) [#/Vol] 291 10*3/uL 150 - 450 [facility] Work Phone: RBC (Bld) [#/Vol] 4.68 {x10E12/L} See Below [facility] Work Phone: Comment on above: Reference Range: 4.5 0 - 5.90 WBC (Bld) [#/Vol] 6.1 10*3/uL 4.4 - 11.3 [facility] Work Phone: No Panel Informationon 06-03 Negative [facility] Work Phone: >60 >60 [facility] Work Phone: Comment on above: CALCULATIONS OF VALERIE MATED GFR ARE PERFORMED USING THE MDRD STUDY EQUATION FOR THE IDMS-TRACEABLE CREATININE METHODS. CLIN CHEM 2007;53:766-72 0.0 {/100_WBC} 0.0-0.0 [facility] Work Phone: Radiologyon 06-03-2021 XR Chest 2 Views FINAL REPORT Interpreted by: CAMILO DONOVAN MD 06/03/21 22:04 Patient Name: ARNALDO BARRY STUDY: TH CHEST 2 VIEW PA AND LAT; 06/03/2021 10:01 am INDICATION: LUQ abd pain and occ cough. COMPARISON: No priors ACCESSION NUMBER(S): Normal [facility] Work Phone: XR Chest 2 Views Please click on the link to view the study images Normal [facility] Work Phone: C Reactive Protein, Serumon 05-13-2021 CRP [Mass/Vol] 0.84 mg/dL [facility] Work Phone: Comment on above: REF VALUE< 1.00 Complete Blood Count + Diffe rentialon 05-13-2021 Basophils/100 WBC (Bld) 0.6 % 0.0 - 2.0 [facility] Work Phone: Erythrocyte distribution width (RBC) [Ratio] 13.8 % See Below [facility] Work Phone: Comment on above: Reference Range: 11. 5 - 14.5 Hematocrit (Bld) [Volume fraction] 42.0 % See Below [facility] Work Phone: Comment on above: Reference Range: 41. 0 - 52.0 Hemoglobin (Bld) [Mass/Vol] 14.1 g/dL See Below [facility] Work Phone: Comment on above: Reference Range: 13. 5 - 17.5 Lymphocytes/100 WBC (Bld) 25.9 % See Below [facility] Work Phone: Comment on above: Reference Range: 13. 0 - 44.0 MCHC (RBC) [Mass/Vol] 33.6 g/dL See Below [facility] Work Phone: Comment on above: Reference Range: 32. 0 - 36.0 MCV (RBC) [Entitic vol] 88 fL 80 - 100 [facility] Work Phone: Monocytes/100 WBC (Bld) 9.1 % 2.0 - 10.0 [facility] Work Phone: Neutrophils/100 WBC (Bld) 62.9 % See Below [facility] Work Phone: Comment on above: Reference Range: 40. 0 - 80.0 Platelets (Bld) [#/Vol] 259 10*3/uL 150 - 450 [facility] Work Phone: RBC (Bld) [#/Vol] 4.80 {x10E12/L} See Below [facility] Work Phone: Comment on above: Reference Range: 4.5 0 - 5.90 WBC (Bld) [#/Vol] 6.6 10*3/uL 4.4 - 11.3 [facility] Work Phone: Complete Blood Count + Differential 0.04 {x10E9/L} See Below [facility] Work Phone: Comment on above: Reference Range: 0.0 0 - 0.10 Complete Blood Count + Differential 0.08 {x10E9/L} See Below [facility] Work Phone: Comment on above: Reference Range: 0.0 0 - 0.70 Complete Blood Count + Differential 0.60 {x10E9/L} See Below [facility] Work Phone: Comment on above: Reference Range: 0.1 0 - 1.00 Complete Blood Count + Differential 1.71 {x10E9/L} See Below [facility] Work Phone: Comment on above: Reference Range: 1.2 0 - 4.80 Complete Blood Count + Differential 4.14 {x10E9/L} See Below [facility] Work Phone: Comment on above: Reference Range: 1.2 0 - 7.70 Complete Blood Count + Differential 1.2 % 0.0 - 6.0 [facility] Work Phone: Complete Blood Count + Differential 0.3 % 0.0 - 0.9 [facility] Work Phone: Comment on above: Immature Granulocyte Count (IG) includes promyelocytes, myelocytes and metamyelocytes but does not include bands. Percent differential counts (%) should be interpreted in the context of the absolute cell counts (cells/L). Complete Blood Count + Differential 0.0 {/100_WBC} 0.0-0.0 [facility] Work Phone: Laboratory - Chemistry and C hemistry - challengeon 05-13-2021 Albumin BCP dye [Mass/Vol] 4.5 g/dL 3.4 - 5.0 [facility] Work Phone: [phone] ALP [Catalytic activity/Vol] 60 U/L 33 - 120 [facility] Work Phone: [phone] ALT With P-5'-P [Catalytic activity/Vol] 42 U/L 10 - 52 [facility] Work Phone: [phone] Comment on above: Patients treated wit h Sulfasalazine may generate falsely decreased results for ALT. Anion gap [Moles/Vol] 12 mmol/L 10 - 20 [facility] Work Phone: [phone] AST With P-5'-P [Catalytic activity/Vol] 22 U/L 9 - 39 [facility] Work Phone: [phone] Bilirubin [Mass/Vol] 0.3 mg/dL 0.0 - 1.2 [facility] Work Phone: [phone] Calcium [Mass/Vol] 9.7 mg/dL 8.6 - 10.6 [facility] Work Phone: [phone] Chloride [Moles/Vol] 105 mmol/L 98 - 107 [facility] Work Phone: [phone] CO2 [Moles/Vol] 29 mmol/L 21 - 32 [facility] Work Phone: [phone] Creatinine [Mass/Vol] 1.08 mg/dL See Below [facility] Work Phone: Comment on above: Reference Range: 0.5 0 - 1.30 Glucose [Mass/Vol] 107 mg/dL above high threshold 74 - 99 [facility] Work Phone: Potassium [Moles/Vol] 4.6 mmol/L 3.5 - 5.3 [facility] Work Phone: Protein [Mass/Vol] 6.7 g/dL 6.4 - 8.2 [facility] Work Phone: Sodium [Moles/Vol] 141 mmol/L 136 - 145 [facility] Work Phone: Urea nitrogen [Mass/Vol] 9 mg/dL 6 - 23 [facility] Work Phone: No Panel Informationon 05-13 >60 >60 [facility] Work Phone: Comment on above: CALCULATIONS OF VALERIE MATED GFR ARE PERFORMED USING THE MDRD STUDY EQUATION FOR THE IDMS-TRACEABLE CREATININE METHODS. CLIN CHEM 2007;53:766-72 Sedimentation Rate, Erythroc yteon 05-13-2021 ESR (Bld) [Velocity] 12 mm/h 0 - 15 [facility] Work Phone: Tobacco Screening.on 021 Fall risk assessment a) No falls within the last year [facility] Work Phone: Tobacco use status CP b) No [facility] Work Phone: Hemoglobin A1Con 09-30-2020 HbA1c (Bld) [Mass fraction] 123 {MG/DL} [facility] Work Phone: HbA1c (Bld) [Mass fraction] 5.9 % [facility] Work Phone: Comment on above: Diagnosis of Diabete s-Adults Non-Diabetic: < or = 5.6% Increased risk for developing diabetes: 5.7-6.4% Diagnostic of diabetes: > or = 6.5%. Monitoring of Diabetes Age (y) Therapeutic Goal (%) Adults: >18 <7.0 Pediatrics: 13-18 <7.5 7-12 <8.0 0- 6 7.5-8.5 [place] [employer]. Diabetes Care 33(S1), Sep 2009. Vitamin D 25-Hydroxyon 09-30 Calcidiol [Mass/Vol] 31 ng/mL [facility] Work Phone: Comment on above: .DEFICIENCY: < 20 NG /MLINSUFFICIENCY: 20-29 NG/MLSUFFICIENCY: 30-100 NG/MLTHIS ASSAY ACCURATELY QUANTIFIES THE SUM OFVITAMIN D3, 25-HYDROXY AND VIT D2,25-HYDROXY. Otheron 09-13-2020 5 1 [facility] Work Phone: Comment on above: Over the last two we eks, how often have you been bothered by the following problems? Feeling nervous, anxious, or on edge: Over half the days - 2Not being able to stop or control worrying: Not at all - 0Worrying too much about different things: Over half the days - 2Trouble relaxing: Not at all - 0Being so restless that it's hard to sit still: Not at all - 0Becoming easily annoyed or irritable: Several days - 1Feeling afraid as if something awful might happen: Not at all - 0 Not at all - 0 [facility] Work Phone: Several days - 1 [facility] Work Phone: Over half the days - 2 [facility] Work Phone: Mild Anxiety [facility] Work Phone: Somewhat difficult [facility] Work Phone: Comment on above: How difficult have t hose problems made it for you to do your work, take care of things at home, or get along with other people? Not at all - 0 [facility] Work Phone: Several days - 1 [facility] Work Phone: Negative [facility] Work Phone: Somewhat difficult [facility] Work Phone: More than half the days - 2 [facility] Work Phone: Minimal Depression [facility] Work Phone: Otheron 08-26-2020 Not at all - 0 -[facility] Work Phone: Over half the days - 2 [facility] Work Phone: Several days - 1 [facility] Work Phone: Mild Anxiety [facility] Work [facility]: Somewhat difficult [facility] Work Phone: Comment on above: How difficult have t hose problems made it for you to do your work, take care of things at home, or get along with other people? 9 1 [facility] Work Phone: Comment on above: Over the last two we eks, how often have you been bothered by the following problems? Feeling nervous, anxious, or on edge: Several days - 1Not being able to stop or control worrying: Several days - 1Worrying too much about different things: Over half the days - 2Trouble relaxing: Several days - 1Being so restless that it's hard to sit still: Over half the days - 2Becoming easily annoyed or irritable: Over half the days - 2Feeling afraid as if something awful might happen: Not at all - 0 Not at all - 0 [facility] Work Phone: Several days - 1 [facility] Work Phone: Somewhat difficult [facility] Work Phone: Mild Depression [facility] Work Phone: Nearly every day - 3 [facility] Work Phone: More than half the days - 2 [facility] Work Phone: Positive Abnormal [facility] Work Phone: Otheron 08-12-2020 Several days - 1 [facility] Work Phone: 12 1 [facility] Work Phone: Comment on above: Over the last two we eks, how often have you been bothered by the following problems? Feeling nervous, anxious, or on edge: Over half the days - 2Not being able to stop or control worrying: Over half the days - 2Worrying too much about different things: Over half the days - 2Trouble relaxing: Over half the days - 2Being so restless that it's hard to sit still: Several days - 1Becoming easily annoyed or irritable: Over half the days - 2Feeling afraid as if something awful might happen: Several days - 1 Very difficult [facility] Work Phone: Comment on above: How difficult have t hose problems made it for you to do your work, take care of things at home, or get along with other people? Moderate Anxiety [facility] Work Phone: Over half the days - 2 [facility] Work Phone: Positive Abnormal [facility] Work Phone: Not at all - 0 [facility] Work Phone: More than half the days - 2 [facility] Work Phone: Several days - 1 [facility] Work Phone: Nearly every day - 3 [facility] Work Phone: Moderate Depression [facility] Work Phone: Somewhat difficult [facility] Work Phone: Otheron 07-22-2020 Not at all - 0 [facility] Work Phone: Several days - 1 [facility] Work Phone: Over half the days - 2 [facility] Work Phone: 8 1 [facility] Work Phone: Comment on above: Over the last two we eks, how often have you been bothered by the following problems? Feeling nervous, anxious, or on edge: Over half the days - 2Not being able to stop or control worrying: Several days - 1Worrying too much about different things: Several days - 1Trouble relaxing: Several days - 1Being so restless that it's hard to sit still: Over half the days - 2Becoming easily annoyed or irritable: Several days - 1Feeling afraid as if something awful might happen: Not at all - 0 Somewhat difficult [facility] Work Phone: Comment on above: How difficult have t hose problems made it for you to do your work, take care of things at home, or get along with other people? Mild Anxiety [facility] Work Phone: More than half the days - 2 [facility] Work Phone: Several days - 1 [facility] Work Phone: Not at all - 0 [facility] Work Phone: Positive Abnormal [facility] Work Phone: Somewhat difficult [facility] Work Phone: Moderate Depression [facility] Work Phone: Nearly every day - 3 [facility] Work Phone: Otheron 07-08-2020 No [facility] Work Phone: Negative [facility] Work Phone: Comment on above: Q1: No, Q2: Yes, Q3: No, Q4: No, Q5: Yes, Q6: Yes, Q7: No, Q8: No, Q9: No, Q10: No, Q11: No, Q12: No, Q13: No HLA B27on 03-17-2020 HLA B27 Positive Normal Negative [facility] Comment on above: Result Comment: INTE RPRETIVE INFORMATION: HLA-B27 HLA-B27 is a serologically defined allele of the human HLA-B locus. The presence of the HLA-B27 antigen is strongly associated with ankylosing spondylitis and related disorders. Test developed and characteristics determined by [facility]. See Compliance Statement B: [facility]/ Performed by [facility], [address] [place] [id number] [email or web address], Ahmet Rios MD - Lab. Director Performed By: #### 1 [id number] #### [facility] [address] [place] [address] Piano Case And Bench Assembler: Shilo Hagan MD IFEon 03-17-2020 Albumin [Mass/Vol] 4.32 g/dL Normal 3.75-5.01 [facility] Comment on above: Performed By: #### 1 [id number], [id number] #### [facility] [address] [place] [address] Piano Case And Bench Assembler: Shilo Hagan MD EER Monoclonal Protein Study, Serum See Note Normal [facility] Comment on above: Result Comment: [employer] Enhanced Report using either link below: -Direct access: [email or web address] -Enter Username, Password: [email or web address] Username: [email or web address] Password: [email or web address] Performed By: [facility] [address] [place] [address] Anode Rebuilder: Ahmet Rios MD, MS Performed By: #### 1 [id number], [id number] #### [facility] [address] [place] [address] [employer] Case [employer] Bench Assembler: Shilo Hagan MD Immunofixation LOUIE Done Normal [facility] Comment on above: Performed By: #### 1 [id number], [id number] #### [facility] [address] [place] [address] P[employer] Case And Bench Assembler: Shilo Hagan MD Protein [Mass/Vol] 7.1 g/dL Normal 6.3-8.2 [facility] Comment on above: Performed By: #### 1 [id number], [id number] #### [facility] [address] [place] [address] [employer] Case [employer] Bench Assembler: Shilo Hagan MD SPE Alpha 1 Globulin 0.26 g/dL Normal 0.19-0.46 [facility] Comment on above: Performed By: #### 1 82383, [id number] #### [facility] [address] [place] [address] [employer] Case And Bench Assembler: Shilo Hagan MD SPE Alpha 2 Globulin 0.67 g/dL Normal 0.48-1.05 [facility] Comment on above: Performed By: #### 1 [id number], [id number] #### [facility] [address] [place] [address] [employer] Case [employer] Bench Assembler: Shilo Hagan MD SPE Beta Globulin 0.92 g/dL Normal 0.48-1.10 [facility] Comment on above: Performed By: #### 1 65075, [id number] #### [facility] [address] [place] [address] [employer] Case [employer] Bench Assembler: Shilo Hagan MD SPE Gamma Globulin 0.94 g/dL Normal 0.62-1.51 [facility] Comment on above: Performed By: #### 1 35077, [id number] #### [facility] [address] [place], [place] [id number] Piano Case And Bench Assembler: Shilo Hagan MD SPEP/LOUIE Interp See Note Normal [facility] Comment on above: Result Comment: Norm al SPEP pattern. LOUIE gel shows a normal pattern; no monoclonal proteins seen. Performed By: #### 1 [id number], [id number] #### [facility] [address] [place] [address] Piano Case And Bench Assembler: Shilo Hagan MD G6PDon 03-16-2020 G-6-P Dehydrogenase 11.9 Normal 9.9-16.6 [facility] Comment on above: Result Comment: Perf ormed By: [facility] [address] [place] [address] Anode Rebuilder: Ahmet Rios MD, MS Performed By: #### 1 [id number], [id number] #### [facility] [address] [place] [address] Piano Case And Bench Assembler: Shilo Hagan MD URICon 03-13-2020 Urate [Mass/Vol] 5.5 mg/dL Normal 3.9-7.8 [facility] Comment on above: Order Comment: call critical reulsts [phone] Performed By: #### 1 [id number] #### [facility] [address] [place], [place] [id number] Piano Case And Bench Assembler: Shilo Hagan MD XR HAND LEFTon 03-13-2020 XR HAND LEFT Clinical indication: Pain FINDINGS: Left The soft tissues are unremarkable, the osseous structures are well mineralized. There is no evidence of acute fracture or dislocation. There is a solitary transverse cortical screw extending to the base of the first metacarpal. There is mild narrowing of the first CMC joint but no evidence of intra-articular calcification. The remaining joint spaces of the hand and wrist are intact. IMPRESSION: Surgical intervention at the base of the thumb with residual transverse stabilizing cortical screw. Otherwise, unremarkable left hand. Electronically signed by: Marcelo Arenas MD 03/13/2020 3:29 PM CDT Technologist: KM Dictated By: MARCELO ARENAS MD Signed By: MARCELO ARENAS MD Signed Out: 03/13/20 16:29:10 Normal [facility] XR HAND RIGHTon 03-13-2020 XR HAND RIGHT Clinical Indication: Pain Findings: Right The soft tissues are unremarkable, the osseous structures are well mineralized. There is no evidence of fracture, dislocation or other osseous abnormality. The joint spaces are intact. Impression: Negative right hand. Electronically signed by: Marcelo Arenas MD 03/13/2020 3:27 PM CDT Technologist: KM Dictated By: MARCELO ARENAS MD Signed By: MARCELO ARENAS MD Signed Out: 03/13/20 16:27:46 Normal [facility] XR THORACIC SPINE 3 VIEWon 0 03-13-2020 XR THORACIC SPINE 3 VIEW Clinical Indication: Pain Findings The paravertebral soft tissues are unremarkable. Vertebral bodies are normal in height and intervertebral disc spaces are preserved. Posterior elements are intact. Impression: Negative thoracic spine. Electronically signed by: Marcelo Arenas MD 03/13/2020 3:26 PM CDT Technologist: KM Dictated By: MARCELO ARENAS MD Signed By: MARCELO ARENAS MD Signed Out: 03/13/20 16:26:53 Normal [facility] CR Ankle 3+ Views Lefton CR Ankle 3+ Views Left Patient Name: ARNALDO BARRY Diagnostic Radiology Exam Date/Time 01/20/2018 18:50:00 EDT Exam CR Ankle 3+ Views Left Ordering Physician MD HAMM JENNIFER Accession Number [id number] CPT4 Codes 21570 () Reason For Exam pain Report Indication: Left ankle pain. No comparison. Findings and impression: Left ankle three views. No acute fracture or dislocation. Orthopedic anchor visible in the lateral malleolus. No definite acute bone process seen. Report Dictated on Final Dictating Physician: MD DOMINIQUE JOHN Signed Date and Time: 01/20/2018 7:23 pm Signed by: MD DOMINIQUE JOHN Transcribed Date and Time: 01/20/2018 7:24 Normal [facility] CR Hand Complete 3+ Views Irasema barraza 01-20-2018 CR Hand Complete 3+ Views Left Patient Name: ARNALDO BARRY Diagnostic Radiology Exam Date/Time 01/20/2018 19:45:00 EDT Exam CR Hand Complete 3+ Views Left Ordering Physician MD KEERTHI, [facility] Accession Number [id number] CPT4 Codes 85804 () Reason For Exam LEFT hand pain. 5th metacarpal fx possible Addendum Addendum: Upon further review, there is a minimally displaced fracture of the triquetrum. Fracture of the base of the first metacarpal is also evident better seen on views of the wrist. Report Dictated on Final Addendum Addendum Dictating Physician: MD DOMINIQUE JOHN Signed Date and Time: 01/20/2018 8:30 pm Signed by: MD DOMINIQUE JOHN Transcribed Date and Time: 01/20/2018 8:31 Report Indication: Left hand pain. Attention fifth metacarpal. Findings and impression: Left hand three views. No acute fracture or dislocation seen. No acute process visualized. Report Dictated on Final Dictating Physician: MD DOMINIQUE JOHN Signed Date and Time: 01/20/2018 7:51 pm Signed by: MD DOMINIQUE JOHN Transcribed Date and Time: 01/20/2018 7:53 Normal [facility] CR Knee Complete 4+ Views Tala gregg 01-20-2018 CR Knee Complete 4+ Views Right Patient Name: ARNALDO BARRY Diagnostic Radiology Exam Date/Time 01/20/2018 18:50:00 EDT Exam CR Knee Complete 4+ Views Right Ordering Physician MD NORIS, [facility] Accession Number [id number] CPT4 Codes 20449 () Reason For Exam pain Report RIGHT KNEE FOUR VIEWS CLINICAL INDICATION: pain TECHNIQUE: Four views of the right knee. COMPARISON: None FINDINGS: Joint spaces are maintained. No joint effusion. No fracture or dislocation seen. IMPRESSION: 1. Negative. Report Dictated on Final Dictating Physician: MD DAY JOHN R Signed Date and Time: 01/20/2018 7:26 pm Signed by: MD DAY JOHN R Transcribed Date and Time: 01/20/2018 7:27 [facility] CR Wrist Complete 3 Views [place] 01-20-2018 CR Wrist Complete 3 Views Left Patient Name: ARNALDO BARRY Diagnostic Radiology Exam Date/Time 01/20/2018 18:50:00 EDT Exam CR Wrist Complete 3 Views Left Ordering Physician MD HAMM JENNIFER Accession Number [id number] CPT4 Codes 00439 () Reason For Exam pain Report LEFT WRIST THREE VIEWS CLINICAL INDICATION: pain TECHNIQUE: Three views of the left wrist. COMPARISON: None FINDINGS: Nondisplaced fracture at the medial base of the first metacarpal. No other fracture or dislocation seen. This may be intra-articular, but no significant joint incongruity seen. IMPRESSION: 1. Nondisplaced fracture base of first metacarpal. Report Dictated on Final Dictating Physician: MD DAY JOHN R Signed Date and Time: 01/20/2018 7:15 pm Signed by: MD DAY JOHN R Transcribed Date and Time: 01/20/2018 7:16 [facility] No Panel Information SARS-CoV-2 & FLU Antigen (Rapid) SARS-CoV-2 (COVID 19) [facility] Work Phone: Vital Signs Date Time Vital Sign Value Performing Clinician Facility 12-20-2024 08:130400 Body height 180.3 cm Nadya Grimes MD Work Phone: [facility] 12-20-2024 08:13-0400 Body mass index (BMI) [Ratio] 38.91 kg/m2 Nadya Grimes MD Work Phone: [facility] 12-20-2024 08:13-0400 Body temperature 97.11 [degF] Nadya Grimes MD Work Phone: [facility] 12-20-2024 08:13-0400 Body weight 126.55 kg Nadya Grimes MD Work Phone: [facility] 12-20-2024 08:13-0400 Diastolic blood pressure 82 mm[Hg] Nadya Grimes MD Work Phone: [facility] 12-20-2024 08:13-0400 Heart rate 101 /min Nadya Grimes MD Work Phone: [facility] 12-20-2024 08:13-0400 Respiratory rate 14 /min Nadya Grimes MD Work Phone: [facility] 12-20-2024 08:13-0400 SaO2% (BldA) [Mass fraction] 91 % Nadya Grimes MD Work Phone: [facility] 12-20-2024 08:13-0400 Systolic blood pressure 121 mm[Hg] Nadya Grimes MD Work Phone: [facility] 11-20-2024 14:52-0400 Diastolic blood pressure 84 mm[Hg] Alesha Cedeño MD Work Phone: [facility] [facility] 11-20-2024 14:52-0400 Systolic blood pressure 144 mm[Hg] Alesha Cedeño MD Work Phone: [facility] 11-20-2024 13:48-0400 Body height 177.8 cm Alesha Cedeño MD Work Phone: [facility] 11-20-2024 13:48-0400 Body mass index (BMI) [Ratio] 40.18 kg/m2 Alesha Cedeño MD Work Phone: [facility] 11-20-2024 13:48-0400 Body weight 127.01 kg Alesha Cedeño MD Work Phone: [facility] 11-20-2024 13:48-0400 Heart rate 90 /min Alesha Cedeño MD Work Phone: [facility] 11-20-2024 13:48-0400 SaO2% (BldA) [Mass fraction] 95 % Alesha Cedeño MD Work Phone: [facility] 2024 12:50-0500 Diastolic blood pressure 106 mm[Hg] Damaris Ansari CERTIFED 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 OPERATOR-BOILER CONTROL TECHNICIAN, DNP Work Phone: [facility] 2024 12:50-0500 Heart rate 105 /min Damaris Ansari CERTIFED 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 OPERATOR-BOILER CONTROL TECHNICIAN, DNP Work Phone: [facility] 2024 12:50-0500 Systolic blood pressure 140 mm[Hg] Damaris Ansari CERTIFED 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 OPERATOR-BOILER CONTROL TECHNICIAN, DNP Work Phone: [facility] 2024 12:47-0500 Body mass index (BMI) [Ratio] 39.87 kg/m2 Damaris Michael CERTIFED 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 OPERATOR-BOILER CONTROL TECHNICIAN, DNP Work Phone: [facility] 2024 12:47-0500 Body weight 122.47 kg Damaris Concepcions CERTIFED 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 OPERATOR-BOILER CONTROL TECHNICIAN, DNP Work Phone: [facility] 08-25-2024 12:35-0500 Body mass index (BMI) [Ratio] 39.65 kg/m2 Nadya Grimes MD Work Phone: [facility] 08-25-2024 12:35-0500 Body temperature 97.81 [degF] Nadya Grimes MD Work Phone: [facility] 08-25-2024 12:35-0500 Body weight 121.79 kg Nadya Grimes MD Work Phone: [facility] 08-25-2024 12:35-0500 Heart rate 104 /min Nadya Grimes MD Work Phone: [facility] 08-25-2024 12:35-0500 Respiratory rate 16 /min Nadya Grimes MD Work Phone: [facility] 08-25-2024 12:35-0500 SaO2% (BldA) [Mass fraction] 98 % Nadya Grimes MD Work Phone: [facility] 06-20-2024 08:15-0400 Body height 175.3 cm Nadya Grimes MD Work Phone: [facility] 06-20-2024 08:15-0400 Body mass index (BMI) [Ratio] 38.87 kg/m2 Nadya Grimes MD Work Phone: [facility] 06-20-2024 08:15-0400 Body temperature 98.4 [degF] Nadya Grimes MD Work Phone: [facility] 06-20-2024 08:15-0400 Body weight 119.39 kg Nadya Grimes MD Work Phone: [facility] 06-20-2024 08:15-0400 Diastolic blood pressure 64 mm[Hg] Nadya Grimes MD Work Phone: [facility] 06-20-2024 08:15-0400 Heart rate 89 /min Nadya Grimes MD Work Phone: [facility] 06-20-2024 08:15-0400 Respiratory rate 12 /min Nadya Grimes MD Work Phone: [facility] 06-20-2024 08:15-0400 SaO2% (BldA) [Mass fraction] 95 % Nadya Grimes MD Work Phone: [facility] 06-20-2024 08:15-0400 Systolic blood pressure 108 mm[Hg] Nadya Grimes MD Work Phone: [facility] 12-29-2023 07:03-0400 Body height 175.3 cm Nadya Grimes MD Work Phone: [facility] 12-29-2023 07:03-0400 Body mass index (BMI) [Ratio] 39.16 kg/m2 Nadya Grimes MD Work Phone: [facility] 12-29-2023 07:03-0400 Body temperature 98.1 [degF] Nadya Grimes MD Work Phone: [facility] 12-29-2023 07:03-0400 Body weight 120.29 kg Nadya Grimes MD Work Phone: [facility] 12-29-2023 07:03-0400 Diastolic blood pressure 81 mm[Hg] Nadya Grimes MD Work Phone: [facility] 12-29-2023 07:03-0400 Heart rate 85 /min Nadya Grimes MD Work Phone: [facility] 12-29-2023 07:03-0400 Respiratory rate 16 /min Nadya Grimes MD Work Phone: [facility] 12-29-2023 07:03-0400 SaO2% (BldA) [Mass fraction] 95 % Nadya Grimes MD Work Phone: [facility] 12-29-2023 07:03-0400 Systolic blood pressure 118 mm[Hg] Nadya Grimes MD Work Phone: [facility] 10-25-2023 12:40-0500 Diastolic blood pressure 76 mm[Hg] Semaj Fitzgerald MD Work Phone: [facility] 10-25-2023 12:40-0500 Heart rate 89 /min Semaj Fitzgerald MD Work Phone: [facility] 10-25-2023 12:40-0500 Respiratory rate 16 /min Semaj Fitzgerald MD Work Phone: [facility] 10-25-2023 12:40-0500 SaO2% (BldA) [Mass fraction] 98 % Semaj Fitzgerald MD Work Phone: [facility] 10-25-2023 12:40-0500 Systolic blood pressure 98 mm[Hg] Semaj Fitzgerald MD Work Phone: [facility] 10-25-2023 12:20-0500 Body temperature 97.5 [degF] Semaj Fitzgerald MD Work Phone: [facility] 10-25-2023 10:34-0500 Body height 175.3 cm Semaj Fitzgerald MD Work Phone: [facility] 10-25-2023 10:34-0500 Body mass index (BMI) [Ratio] 39.87 kg/m2 Semaj Fitzgerald MD Work Phone: [facility] 10-25-2023 10:34-0500 Body weight 122.47 kg Semaj Fitzgerald MD Work Phone: [facility] 09-10-2023 11:47-0500 Body mass index (BMI) [Ratio] 36.45 kg/m2 Luzma Santo MD Work Phone: [facility] 09-10-2023 11:47-0500 Body weight 115.21 kg Luzma Santo MD Work Phone: [facility] 09-10-2023 11:47-0500 Diastolic blood pressure 94 mm[Hg] Luzma Santo MD Work Phone: [facility] 09-10-2023 11:47-0500 Heart rate 91 /min Luzma Santo MD Work Phone: [facility] 09-10-2023 11:47-0500 Systolic blood pressure 126 mm[Hg] Luzma Santo MD Work Phone: [facility] 06-29-2023 07:07-0400 Body mass index (BMI) [Ratio] 36.55 kg/m2 Nadya Grimes MD Work Phone: [facility] 06-29-2023 07:07-0400 Body temperature 97.2 [degF] Nadya Grimes MD Work Phone: [facility] 06-29-2023 07:07-0400 Body weight 115.53 kg Nadya Grimes MD Work Phone: [facility] 06-29-2023 07:07-0400 Diastolic blood pressure 76 mm[Hg] Nadya Grimes MD Work Phone: [facility] 06-29-2023 07:07-0400 Heart rate 84 /min Nadya Grimes MD Work Phone: [facility] 06-29-2023 07:07-0400 SaO2% (BldA) [Mass fraction] 96 % Nadya Grimes MD Work Phone: [facility] 06-29-2023 07:07-0400 Systolic blood pressure 110 mm[Hg] Nadya Grimes MD Work Phone: [facility] 12-28-2022 10:42-0400 Body mass index (BMI) [Ratio] 36.36 kg/m2 Nadya Grimes MD Work Phone: [facility] 12-28-2022 10:42-0400 Body temperature 97.9 [degF] Nadya Grimes MD Work Phone: [facility] 12-28-2022 10:42-0400 Body weight 114.94 kg Nadya Grimes MD Work Phone: [facility] 12-28-2022 10:42-0400 Diastolic blood pressure 82 mm[Hg] Nadya Grimes MD Work Phone: [facility] 12-28-2022 10:42-0400 Heart rate 78 /min Nadya Grimes MD Work Phone: [facility] 12-28-2022 10:42-0400 Respiratory rate 16 /min Nadya Grimes MD Work Phone: [facility] 12-28-2022 10:42-0400 SaO2% (BldA) [Mass fraction] 96 % Nadya Grimes MD Work Phone: [facility] 12-28-2022 10:42-0400 Systolic blood pressure 119 mm[Hg] Nadya Grimes MD Work Phone: [facility] 06-25-2022 11:33-0400 Body mass index (BMI) [Ratio] 35.73 kg/m2 Nadya L Diego Work Phone: [facility] Work Phone: 06-25-2022 11:33-0400 Body surface area Derived from formula 2.29 m2 Nadya L Diego Work Phone: [facility] Work Phone: 06-25-2022 11:33-0400 Body temperature 98.2 [degF] Nadya L Diego Work Phone: [facility] Work Phone: 06-25-2022 11:33-0400 Body weight 112.95 kg Nadya L Diego Work Phone: -[facility] Work Phone: 06-25-2022 11:33-0400 Diastolic blood pressure 72 mm[Hg] Nadya L Diego Work Phone: -[facility] Work Phone: 06-25-2022 11:33-0400 Heart rate 82 /min Nadya L Diego Work Phone: -[facility] Work Phone: 06-25-2022 11:33-0400 Respiratory rate 16 /min Nadya L Diego Work Phone: [facility] Work Phone: 06-25-2022 11:33-0400 SaO2% (BldA) [Mass fraction] 95 % Nadya L Diego Work Phone: [facility] Work Phone: 06-25-2022 11:33-0400 Systolic blood pressure 129 mm[Hg] Nadya L Diego Work Phone: [facility] Work Phone: 06-25-2022 11:33-0400 10 1 Nadya L Diego Work Phone: [facility] Work Phone: Comment on above: PHQ-9 TS 05-05-2022 17:36-0400 Body temperature 102.2 [degF] [facility] Work Phone: 05-05-2022 17:36-0400 Diastolic blood pressure 90 mm[Hg] [facility] Work Phone: 05-05-2022 17:36-0400 Heart rate 120 /min [facility] Work Phone: 05-05-2022 17:36-0400 Respiratory rate 18 /min [facility] Work Phone: 05-05-2022 17:36-0400 SaO2% (BldA) [Mass fraction] 95 % [facility] Work Phone: 05-05-2022 17:36-0400 Systolic blood pressure 116 mm[Hg] [facility] Work Phone: 05-05-2022 17:32-0400 Body height 175.26 cm [facility] Work Phone: 05-05-2022 17:32-0400 Body mass index (BMI) [Ratio] 36.3 kg/m2 [facility] Work Phone: 05-05-2022 17:32-0400 Body weight 111.58 kg [facility] Work Phone: 04-15-2022 08:29-0400 Body height 177.8 cm Nadya L Diego Work Phone: [facility] 400 DO Work Phone: 04-15-2022 08:29-0400 Body mass index (BMI) [Ratio] 35.27 kg/m2 Nadya L Diego Work Phone: [facility] 400 DO Work Phone: 04-15-2022 08:29-0400 Body surface area Derived from formula 2.28 m2 Nadya L Diego Work Phone: [facility] 400 DO Work Phone: 04-15-2022 08:29-0400 Body temperature 97.5 [degF] Nadya L Diego Work Phone: [facility] 400 DO Work Phone: 04-15-2022 08:29-0400 Body weight 111.49 kg Nadya L Diego Work Phone: [facility] 400 DO Work Phone: 04-15-2022 08:29-0400 Diastolic blood pressure 66 mm[Hg] Nadya L Diego Work Phone: [facility] 400 DO Work Phone: 04-15-2022 08:29-0400 Heart rate 82 /min Nadya L Diego Work Phone: [facility] 400 DO Work Phone: 04-15-2022 08:29-0400 SaO2% (BldA) [Mass fraction] 98 % Nadya L Diego Work Phone: [facility] 400 DO Work Phone: 04-15-2022 08:29-0400 Systolic blood pressure 108 mm[Hg] Nadya L Diego Work Phone: [facility] 400 DO Work Phone: 03-20-2022 09:11-0400 Body height 177.8 cm Nadya L Diego Work Phone: [facility] [address] [facility] Work Phone: 03-20-2022 09:11-0400 Body mass index (BMI) [Ratio] 35.58 kg/m2 Nadya L Diego Work Phone: BP-Nvdmvjfwcdbd-RhSteven [place] [id number] [facility] Work Phone: 03-20-2022 09:11-0400 Body surface area Derived from formula 2.29 m2 Nadya L Diego Work Phone: PP-Fpijnvlhbfea-JfSteven [place] [id number] [facility] Work Phone: 03-20-2022 09:11-0400 Body temperature 97.9 [degF] Nadya L Diego Work Phone: II-Klzpxxelqdgj-BuSteven [place] [id number] [facility] Work Phone: 03-20-2022 09:11-0400 Body weight 112.49 kg Nadya L Diego Work Phone: UP-Okmbgxqbudyd-LqSteven [place] [address] [facility] Work Phone: 03-20-2022 09:11-0400 Diastolic blood pressure 80 mm[Hg] Nadya L Diego Work Phone: ZT-Dcnzxvyzuxjw-HfSteven [place] [address] [facility] Work Phone: 03-20-2022 09:11-0400 Heart rate 70 /min Nadya L Diego Work Phone: GC-Vqdefhqtimho-UtSteven [place] [address] [facility] Work Phone: 03-20-2022 09:11-0400 Respiratory rate 18 /min Nadya L Diego Work Phone: HW-Suiqmmgthnxc-FcSteven [place] [address] [facility] Work Phone: 03-20-2022 09:11-0400 Systolic blood pressure 117 mm[Hg] Nadya L Diego Work Phone: OE-Jrszwpsynwse-HwSteven [place] [address] [facility] Work Phone: 03-20-2022 09:11-0400 4 1 Nadya L Diego Work Phone: LK-Kuorfgubbivf-JmSteven [place] [address] [facility] Work Phone: Comment on above: [employer] 03-12-2022 08:21-0400 Body height 175.26 cm Nadya L Diego Work Phone: [facility] 400 DO Work Phone: 03-12-2022 08:21-0400 Body mass index (BMI) [Ratio] 35.77 kg/m2 Nadya L Diego Work Phone: [facility] 400 DO Work Phone: 03-12-2022 08:21-0400 Body surface area Derived from formula 2.24 m2 Nadya L Diego Work Phone: [facility] 400 DO Work Phone: 03-12-2022 08:21-0400 Body temperature 98 [degF] Nadya L Diego Work Phone: [facility] 400 DO Work Phone: 03-12-2022 08:21-0400 Body weight 109.88 kg Nadya L Diego Work Phone: [facility] 400 DO Work Phone: 03-12-2022 08:21-0400 Diastolic blood pressure 74 mm[Hg] Nadya L Diego Work Phone: [facility] 400 DO Work Phone: 03-12-2022 08:21-0400 Heart rate 84 /min Nadya L Diego Work Phone: [facility] 400 DO Work Phone: 03-12-2022 08:21-0400 SaO2% (BldA) [Mass fraction] 97 % Nadya L Diego Work Phone: [facility] 400 DO Work Phone: 03-12-2022 08:21-0400 Systolic blood pressure 114 mm[Hg] Nadya L Diego Work Phone: [facility] 400 DO Work Phone: 03-12-2022 08:21-0400 15 1 Nadya L Diego Work Phone: -[facility] 400 DO Work Phone: Comment on above: [facility] 01-15-2022 15:22-0400 Body height 175.26 cm Nadya L Diego Work Phone: -[facility] 400 DO Work Phone: 01-15-2022 15:22-0400 Body mass index (BMI) [Ratio] 35.38 kg/m2 Nadya L Diego Work Phone: [facility] 400 DO Work Phone: 01-15-2022 15:22-0400 Body surface area Derived from formula 2.23 m2 Nadya L Diego Work Phone: [facility] 400 DO Work Phone: 01-15-2022 15:22-0400 Body temperature 97.1 [degF] Nadya L Diego Work Phone: [facility] 400 DO Work Phone: 01-15-2022 15:22-0400 Body weight 108.68 kg Nadya L Diego Work Phone: [facility] 400 DO Work Phone: 01-15-2022 15:22-0400 Diastolic blood pressure 80 mm[Hg] Nadya L Diego Work Phone: [facility] 400 DO Work Phone: 01-15-2022 15:22-0400 Heart rate 92 /min Nadya L Diego Work Phone: [facility] 400 DO Work Phone: 01-15-2022 15:22-0400 SaO2% (BldA) [Mass fraction] 98 % Nadya L Diego Work Phone: [facility] 400 DO Work Phone: 01-15-2022 15:22-0400 Systolic blood pressure 116 mm[Hg] Nadya L Diego Work Phone: [facility] 400 DO Work Phone: 12-02-2021 11:02-0400 Body mass index (BMI) [Ratio] 35.83 kg/m2 Nadya L Diego Work Phone: [facility] Work Phone: 12-02-2021 11:02-0400 Body surface area Derived from formula 2.24 m2 Nadya L Diego Work Phone: [facility] Work Phone: 12-02-2021 11:02-0400 Body temperature 97.2 [degF] Nadya L Diego Work Phone: [facility] Work Phone: 12-02-2021 11:02-0400 Body weight 110.04 kg Nadya L Diego Work Phone: [facility] Work Phone: 12-02-2021 11:02-0400 Diastolic blood pressure 81 mm[Hg] Nadya L Diego Work Phone: [facility] Work Phone: 12-02-2021 11:02-0400 Heart rate 93 /min Nadya L Diego Work Phone: [facility] Work Phone: 12-02-2021 11:02-0400 Respiratory rate 18 /min Nadya L Diego Work Phone: [facility] Work Phone: 12-02-2021 11:02-0400 Systolic blood pressure 113 mm[Hg] Nadya L Diego Work Phone: [facility] Work Phone: 11-24-2021 14:32-0400 Body height 175.26 cm Nadya L Diego Work Phone: [facility] 400 DO Work Phone: 11-24-2021 14:32-0400 Body mass index (BMI) [Ratio] 35.83 kg/m2 Nadya L Diego Work Phone: [facility] 400 DO Work Phone: 11-24-2021 14:32-0400 Body surface area Derived from formula 2.24 m2 Nadya L Diego Work Phone: [facility] 400 DO Work Phone: 11-24-2021 14:32-0400 Body temperature 97.5 [degF] Nadya L Diego Work Phone: [facility] 400 DO Work Phone: 11-24-2021 14:32-0400 Body weight 110.04 kg Nadya L Diego Work Phone: [facility] 400 DO Work Phone: 11-24-2021 14:32-0400 Diastolic blood pressure 76 mm[Hg] Nadya L Diego Work Phone: [facility] 400 DO Work Phone: 11-24-2021 14:32-0400 SaO2% (BldA) [Mass fraction] 94 % Nadya L Diego Work Phone: [facility] 400 DO Work Phone: 11-24-2021 14:32-0400 Systolic blood pressure 118 mm[Hg] Nadya L Diego Work Phone: [facility] 400 DO Work Phone: 11-24-2021 14:32-0400 15 1 Nadya L Diego Work Phone: [facility] 400 DO Work Phone: Comment on above: [facility] 10-24-2021 09:24-0500 Body mass index (BMI) [Ratio] 36.33 kg/m2 Nadya L Diego Work Phone: [facility] Work Phone: 10-24-2021 09:24-0500 Body surface area Derived from formula 2.26 m2 Nadya L Diego Work Phone: [facility] Work Phone: 10-24-2021 09:24-0500 Body temperature 98.1 [degF] Nadya L Diego Work Phone: -[facility] Work Phone: 10-24-2021 09:24-0500 Body weight 111.59 kg Nadya L Diego Work Phone: -[facility] Work Phone: 10-24-2021 09:24-0500 Diastolic blood pressure 82 mm[Hg] Nadya L Diego Work Phone: -[facility] Work Phone: 10-24-2021 09:24-0500 Heart rate 84 /min Nadya L Diego Work Phone: [facility] Work Phone: 10-24-2021 09:24-0500 SaO2% (BldA) [Mass fraction] 97 % Nadya L Diego Work Phone: [facility] Work Phone: 10-24-2021 09:24-0500 Systolic blood pressure 119 mm[Hg] Nadya L Diego Work Phone: [facility] Work Phone: 10-17-2021 08:40-0500 Body temperature 97.5 [degF] Nadya L Diego Work Phone: LC-Iqxvuxgoxmdd-Bz [facility] [address] [facility] Work Phone: 10-17-2021 08:40-0500 Diastolic blood pressure 87 mm[Hg] Nadya Grimes Work Phone: BL-Giojjepnijwe-Ep [facility] [address] [facility] Work Phone: 10-17-2021 08:40-0500 Heart rate 90 /min Nadya Grimes Work Phone: OE-Jrlxrwxqzzmd-Cp [facility] [address] [facility] Work Phone: 10-17-2021 08:40-0500 Systolic blood pressure 118 mm[Hg] Nadya Grimes Work Phone: QQ-Imwipcwlglhj-Ve [facility] [address] [facility] Work Phone: 10-17-2021 08:39-0500 0 1 Nadya Grimes Work Phone: US-Epyvqfgtpbwe-FpSteven [place] [id number] [facility] Work Phone: Comment on above: [employer] 10-17-2021 08:37-0500 Body height 175.26 cm Nadya Grimes Work Phone: DU-Higsvrfsfdyv-Je [place] [id number] [facility] Work Phone: 10-17-2021 08:37-0500 Body mass index (BMI) [Ratio] 35.74 kg/m2 Nadya Grimes Work Phone: RX-Vscmojrdcxwd-Vn [facility] [place] [id number] [facility] Work Phone: 10-17-2021 08:37-0500 Body surface area Derived from formula 2.24 m2 Nadya Grimes Work Phone: WO-Rkdeetvylndk-Jz [facility] [address] [facility] Work Phone: 10-17-2021 08:37-0500 Body weight 109.77 kg Nadya L Diego Work Phone: [facility] [address] [facility] Work Phone: 06-03-2021 08:01-0400 Body mass index (BMI) [Ratio] 35.56 kg/m2 Nadya L Diego Work Phone: [facility] Work Phone: 06-03-2021 08:01-0400 Body surface area Derived from formula 2.24 m2 Nadya L Diego Work Phone: [facility] Work Phone: 06-03-2021 08:01-0400 Body temperature 96.6 [degF] Nadya L Diego Work Phone: [facility] Work Phone: 06-03-2021 08:01-0400 Body weight 109.23 kg Naday L Diego Work Phone: [facility] Work Phone: 06-03-2021 08:01-0400 Diastolic blood pressure 79 mm[Hg] Nadya L Diego Work Phone: [facility] Work Phone: 06-03-2021 08:01-0400 Heart rate 81 /min Nadya L Diego Work Phone: [facility] Work Phone: 06-03-2021 08:01-0400 Respiratory rate 16 /min Nadya L Diego Work Phone: [facility] Work Phone: 06-03-2021 08:01-0400 SaO2% (BldA) [Mass fraction] 96 % Nadya L Diego Work Phone: [facility] Work Phone: 06-03-2021 08:01-0400 Systolic blood pressure 117 mm[Hg] Nadya L Diego Work Phone: [facility] Work Phone: 05-13-2021 08:30-0400 Body height 175.26 cm Nadya L Diego Work Phone: DA-Eietpkmlkind-Rn [facility] Work Phone: 05-13-2021 08:30-0400 Body mass index (BMI) [Ratio] 35.29 kg/m2 Nadya L Diego Work Phone: CH-Bfnmobqrimei-Qr [facility] [address] Work Phone: 05-13-2021 08:30-0400 Body surface area Derived from formula 2.23 m2 Nadya L Diego Work Phone: LD-Jbcuhuvfyhqf-Og [facility] [address] Work Phone: 05-13-2021 08:30-0400 Body temperature 97.2 [degF] Nadya L Diego Work Phone: QI-Ubylsdigmqcw-Ci [facility] [address] Work Phone: 05-13-2021 08:30-0400 Body weight 108.41 kg Nadya L Diego Work Phone: XX-Rtnwiourizyr-Nj [facility] [address] Work Phone: 05-13-2021 08:30-0400 Diastolic blood pressure 84 mm[Hg] Nadya L Diego Work Phone: XC-Hmvorerbjwgj-Zh [facility] Work Phone: 05-13-2021 08:30-0400 Heart rate 88 /min Nadya L Diego Work Phone: HQ-Moukwywiifjx-Pf [facility] [address] Work Phone: 05-13-2021 08:30-0400 Systolic blood pressure 118 mm[Hg] Nadya L Diego Work Phone: FV-Pezhkpzzofou-Ct [facility] [address] Work Phone: 09-30-2020 10:34-0500 BMI (Body Mass Index) 32.51 kg/m2 Nadya Diego II-Haiyfjplnslq-Mz min [place] Work Phone: 09-30-2020 10:34-0500 Body Temperature 96.9 [degF] Nadya Diego [facility] -[facility] min [place] Work Phone: Comment on above: Method: Tympanic 09-30-2020 10:34-0500 Body weight 102.79 kg Nadya Diego [facility]- [facility] [place] Work Phone: 09-30-2020 10:34-0500 BP Diastolic 80 mm[Hg] Andya Diego [facility]- [facility] [place] Work Phone: Comment on above: Location: LUE; Position: Sitting 09-30-2020 10:34-0500 BP Systolic 117 mm[Hg] Nadya Diego [facility]- [facility] [place] Work Phone: Comment on above: Location: LUE; Position: Sitting 09-30-2020 10:34-0500 BSA (Body Surface Area) 2.2 m2 Nadya Diego PO-Ljghqvgonjhh-Vs min [place] Work Phone: 09-30-2020 10:34-0500 Pulse (Heart Rate) 108 /min Nadya Diego [facility]-Rheumatolo gy-[facility] [place] Work Phone: 09-30-2020 10:34-0500 Pulse Oximetry 96 % Nadya Diego [facility]- [facility] [place] Work Phone: Comment on above: Source: RA 09-30-2020 10:34-0500 Respiratory Rate 16 /min Nadya Diego [facility] -[facility] [place] Work Phone: 08-05-2020 15:54-0500 BMI (Body Mass Index) 33.69 kg/m2 Nadya Diego [facility] Work Phone: 08-05-2020 15:54-0500 Body Temperature 96.9 [degF] Nadya Diego [facility] Work Phone: Comment on above: Method: Tympanic 08-05-2020 15:54-0500 Body weight 106.51 kg Nadya Diego [facility] Work Phone: 08-05-2020 15:54-0500 BP Diastolic 85 mm[Hg] Nadya Diego [facility] Work Phone: Comment on above: Location: LUE; Position: Sitting 08-05-2020 15:54-0500 BP Systolic 134 mm[Hg] Nadya Diego [facility] Work Phone: Comment on above: Location: LUE; Position: Sitting 08-05-2020 15:54-0500 BSA (Body Surface Area) 2.23 m2 Nadya Diego [facility] Work Phone: 08-05-2020 15:54-0500 Pulse (Heart Rate) 87 /min Nadya Diego [facility] Work Phone: 08-05-2020 15:54-0500 Pulse Oximetry 97 % Nadya Diego [facility] Work Phone: Comment on above: Source: 08-05-2020 15:54-0500 Respiratory Rate 16 /min Nadya Diego [facility] Work Phone: 07-12-2020 13:42-0500 BMI (Body Mass Index) 32.43 kg/m2 Nadya Diego [facility] Work Phone: 07-12-2020 13:42-0500 Body Temperature 97.2 [degF] Nadya Diego [facility] Work Phone: 07-12-2020 13:42-0500 Body weight 102.51 kg Nadya Diego [facility] Work Phone: 07-12-2020 13:42-0500 BP Diastolic 87 mm[Hg] Nadya Diego [facility] Work Phone: 07-12-2020 13:42-0500 BP Systolic 121 mm[Hg] Nadya Grimes [facility] Work Phone: 07-12-2020 13:42-0500 BSA (Body Surface Area) 2.2 m2 Ndaya [facility] Work Phone: 07-12-2020 13:42-0500 Height 177.8 cm Nadya Grimes [facility] Work Phone: 07-12-2020 13:42-0500 Pulse (Heart Rate) 90 /min Nadya Tyler [facility] Work Phone: Encounters Encounter Date Encounter Type Care Provider Facility Start: 12-20-2024 End: 12-20-2024 Office outpatient visit 25 minutes Nadya Grimes MD Work Phone: [facility] Comment on above: Prediabetes (Primary Dx); Depression, major, recurrent, in remission (CMS-HCC); Anxiety, mild; Obstructive sleep apnea syndrome; Class 3 severe obesity due to excess calories without serious comorbidity with body mass index (BMI) of 40.0 to 44.9 in adult Start: 12-20-2024 End: 12-20-2024 ambulatory [facility] Start: 11-20-2024 End: 11-20-2024 Office outpatient new 45 minutes Alesha Cedeño MD Work Phone: Formerly named [facility] Comment on above: Anticoagulation natty vignesh encounter (Primary Dx); Acute deep vein thrombosis (DVT) of left lower extremity, unspecified vein (Multi); Family history of clotting disorder Start: 11-20-2024 End: 11-20-2024 ambulatory ALESHA CEDEÑO [facility] Start: 2024 End: 2024 Office outpatient new 45 minutes Dmaaris Ansari 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 OPERATOR-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 CONTROL TECHNICIAN, DNP Work Phone: [facility] Comment on above: Acute deep vein thro mbosis (DVT) of left lower extremity, unspecified vein (Multi) Start: 2024 End: 2024 ambulatory DAMARIS N [facility] Start: 08-25-2024 End: 08-25-2024 Transitional care manage srvc 14 day discharge Nadya Grimes MD Work Phone: [facility] Comment on above: Acute deep vein thro mbosis (DVT) of left lower extremity, unspecified vein (Multi) (Primary Dx); Hospital discharge follow-up; Increased liver enzymes Start: 08-25-2024 End: 08-25-2024 [facility] Start: 08-21-2024 End: 08-21-2024 Emergency department patient visit [facility] Facility:[facility] Start: 08-19-2024 [facility] Start: 08-19-2024 End: 08-19-2024 Emergency department patient visit [facility] Facility:[facility] Start: 06-20-2024 End: 06-20-2024 Office outpatient visit 25 minutes Nadya Grimes MD Work Phone: [facility] Comment on above: Prediabetes; Depression, major, recurrent, in remission (CMS-HCC); Erectile dysfunction, unspecified erectile dysfunction type Start: 06-20-2024 End: 06-20-2024 [facility] Start: 12-29-2023 End: 12-29-[address] [facility] Start: 12-29-2023 End: 12-29-2023 Office outpatient visit 25 minutes Nadya Grimes MD Work Phone: [facility] Comment on above: Anxiety, mild (Prima ry Dx); Obstructive sleep apnea syndrome; Prediabetes; Posttraumatic stress disorder; Abnormal TSH; Depression, major, recurrent, in remission (CMS-HCC); Erectile dysfunction, unspecified erectile dysfunction type Start: 10-25-2023 End: 10-25-2023 Subsequent hospital visit by physician Semaj Fitzgerald MD Work Phone: [facility] Comment on above: Screening for colon cancer (Primary Dx) Start: 09-10-2023 End: 09-10-2023 Office outpatient visit 25 minutes Luzma Santo MD Work Phone: [facility] Comment on above: Bright red blood per rectum (Primary Dx); Screening for colon cancer; Erectile dysfunction, unspecified erectile dysfunction type; Ankylosing spondylitis, unspecified site of spine (CMS/HCC) Start: 06-29-2023 End: 06-29-2023 Office outpatient visit 25 minutes Nadya Grimes MD Work Phone: [facility] Comment on above: Anxiety, mild (Prima ry Dx); Depression, major, recurrent, mild (CMS/HCC); Obstructive sleep apnea syndrome; Prediabetes; Posttraumatic stress disorder; Depression, major, recurrent, in remission (CMS/HCC); Nightmare disorder; Panic attack; Ankylosing spondylitis, unspecified site of spine (CMS/HCC); HLA-B27 spondyloarthropathy; Abnormal TSH; Body mass index (BMI) of 35.0 to 35.9; Class 2 obesity due to excess calories without serious comorbidity with body mass index (BMI) of 35.0 to 35.9 in adult Start: 04-02-[address] Nadya Grimes Faccheryl lity:[phone] Start: 12-28-2022 End: 12-28-2022 Office outpatient visit 25 minutes Nadya Grimes MD Work Phone: [facility] Comment on above: Depression, major, r ecurrent, in remission (CMS/HCC) (Primary Dx); Anxiety, mild; Nightmare disorder; Posttraumatic stress disorder; Prediabetes; Screening for cholesterol level; Panic attack; Ankylosing spondylitis, unspecified site of spine (CMS/HCC); HLA-B27 spondyloarthropathy; Obstructive sleep apnea syndrome; Abnormal TSH; Body mass index (BMI) of 35.0 to 35.9; Class 2 obesity due to excess calories without serious comorbidity with body mass index (BMI) of 35.0 to 35.9 in adult; Rash; Locking finger joint Start: 10-08-2022 AUDIT Nadya Grimes Work Phone: [facility] Work Phone: Start: 10-02-2022 ambulatory Blas YAÑEZ [facility] Facility:[id number] Start: 09-04-2022 AUDIT Nadya L Diego Work Phone: [facility] Work Phone: Start: 06-25-2022 Office outpatient vi sit 25 minutes Nadya L Diego Work Phone: [facility] Work Phone: Start: 06-25-[address] Nadya Rodriguez lity:[phone] Start: 05-05-2022 End: 05-05-2022 Emergency department patient visit [facility] Start: 04-29-2022 AUDIT Nadya L Diego Work Phone: [facility] Work Phone: Start: 04-24-2022 Patient encounter procedure Nadya L Diego Work Phone: [facility] Work Phone: Start: 04-15-2022 Office outpatient vi sit 15 minutes Nadya L Diego Work Phone: [facility] [address] DO Work Phone: Start: 04-15-2022 Patient encounter procedure Nadya L Diego Work Phone: [facility] [address] DO Work Phone: Start: 04-15-[address] Nadya Rodriguez lity:[phone] Start: 03-20-2022 Office outpatient vi sit 15 minutes Nadya L Diego Work Phone: GB-Hfwnmgmykxgz-Ivwjl in [facility] [address] Work Phone: Start: 03-12-2022 Office outpatient vi sit 25 minutes Nadya L Diego Work Phone: [facility] [address] DO Work Phone: Start: 01-15-2022 Office outpatient vi sit 15 minutes Nadya L Diego Work Phone: [facility] [address] DO Work Phone: Start: 01-15-2022 Patient encounter procedure [facility]adya Grimes Work [facility] [address] [facility] Work Phone: Start: 12-30-2021 Patient encounter procedure Nadyacharline Grimes Work Phone: [facility] Work Phone: Start: 12-09-2021 Patient encounter procedure Nadya Grimes Work Phone: RY-Jnfafifptu-[address] [place] Work Phone: Start: 12-02-2021 Chart Update Nadya Grimes Work Phone: [facility] Work Phone: Start: 11-24-2021 Office consultation new/estab patient 60 min Nadya Grimes Work Phone: [facility] [address] DO Work Phone: Start: 11-10-2021 AUDIT Nadya Grimes Work Phone: CB-Moavknkxptdn-Oxqqg [address] [facility] [address] Work Phone: Start: 10-29-2021 AUDIT Nadya Grimes Work Phone: RM-Unovbymwtoak-Cntuo [place] Work Phone: Start: 10-27-2021 AUDIT Nadya Grimes Work Phone: EL[facility]Sjqvnkdqnjopaymt[facility] Work Phone: Start: 10-24-2021 AUDIT Nadyacharline Whitneye Work Phone: WB-Srjapsrcctxc-Jmims in [facility] [address] [facility] Work Phone: Start: 10-24-2021 Office outpatient vi sit 15 minutes Nadya L Diego Work Phone: [facility] Work Phone: Start: 10-17-2021 Office outpatient vi sit 25 minutes Nadya L Diego Work Phone: SU-Zlwdyynkkzgj-Mlfut in [facility] [address] [facility] Work Phone: Start: 09-08-2021 AUDIT Nadya L Diego Work Phone: [facility] Work Phone: Start: 09-01-2021 Rx Change Nadya L Diego Work Phone: RS-Jxzubwyrknxd-Cgmcz in [address] Work Phone: Start: 08-28-2021 Rx Renewal Nadya L Diego Work Phone: TS-Xgfcdhmobvaz-Xsydf [place] Work Phone: Start: 08-12-2021 AUDIT Andya L Diego Work Phone: [facility] Work Phone: Start: 08-08-2021 AUDIT Nadya L Diego Work Phone: KM-Nnqapwstaqqv-Qikrv in [address] Work Phone: Start: 08-01-2021 Chart Update Nadya L Diego Work Phone: OT-Gyjhoqnswbih-Emmgb in [address] Work Phone: Start: 07-30-2021 Chart Update Nadya L Diego Work Phone: XI-[place]emb[place]woyuc-[place] Work Phone: Start: 07-24-2021 AUDIT Nadya L Diego Work Phone: IN-Ttpciuokjcwy-Dpsxv [place] Work Phone: Start: 06-04-2021 Chart Update Nadya L Diego Work Phone: [facility] Work Phone: Start: 06-03-2021 Office outpatient vi sit 25 minutes Nadya L Diego Work Phone: [facility] Work Phone: Start: 05-14-2021 Chart Update Nadya L Diego Work Phone: BX-Zsagqfiajurb-Smzjw r [facility] [address] Work Phone: Start: 05-13-2021 Office outpatient vi sit 40 minutes Nadya Grimes Work Phone: KR-Gcyxvdnaueyj-Qixyl r [facility] [address] Work Phone: Start: 04-16-2021 AUDIT Nadya Grimes Work Phone: [facility] Work Phone: Start: 09-30-2020 Patient encounter procedure Nadya Grimes BK-Bntxmczjflhg-Ffgrp [place] Work Phone: Start: 08-05-2020 Patient encounter procedure Nadya Diego [facility] Work Phone: Start: 07-12-2020 Patient encounter procedure Nadya Diego [facility] Work Phone: Start: 07-05-2020 Patient encounter procedure Nadya Diego [facility] Work Phone: Start: 05-10-2020 Patient encounter procedure Nadya Diego [facility] Work Phone: Start: 03-13-2020 Patient encounter procedure Nadya Diego [facility] Work Phone: Start: 03-04-2020 Patient encounter procedure Nadya Diego [facility] Work Phone: Start: 08-24-2019 Patient encounter procedure Nadya Diego [facility] Work Phone: Start: 06-27-2019 Patient encounter procedure Nadya Diego [facility] Work Phone: Start: 02-28-2019 Patient encounter procedure Nadya Diego [facility] Work Phone: Start: 12-09-2018 Patient encounter procedure Nadya Diego [facility] Work Phone: Start: 08-09-2018 Patient encounter procedure Nadya Diego [facility] Work Phone: Start: 07-20-2018 Patient encounter procedure Nadyacharline Grimes [facility] Work Phone: Start: 02-14-2018 Patient encounter procedure Nadyacharline Grimes [facility] Work Phone: Start: 01-20-2018 Emergency department patient visit [facility] Start: 01-12-2018 Patient encounter procedure Nadya Grimes [facility] Work Phone: Start: 12-01-2017 Patient encounter procedure Nadyacharline Grimes [facility] Work Phone: Start: 03-14-2008 End: 03-14-2008 Patient encounter procedure Carri Zuluaga Work Phone: [facility] Start: 02-10-2008 End: 02-10-2008 Patient encounter procedure Miryam Henley MD Work Phone: [facility] Procedures Date Procedure Procedure Detail Performing Clinician Start: 12-29-2023 Hemoglobin A1c/Hemoglobin.total in Blood ALESHA CEDEÑO Start: 12-29-2023 Thyrotropin [Units/v olume] in Serum or Plasma ALESHA CEDEÑO Start: 10-25-2023 Colonoscopy w/biopsy single/multiple Luzma Santo MD Work Phone: Start: 10-25-2023 PULSE OXIMETRY, CONTINUOUS Semaj Fitzgerald MD Work Phone: Start: 10-25-2023 PULSE OXIMETRY, SPOT Cr hannah Fitzgerald MD Work Phone: Start: 10-25-2023 Colonoscopy Semaj acuna MD Work Phone: Start: 12-28-2022 Lipid 1996 panel - S bennett or Plasma Nadya Grimes MD Work Phone: History of Ankle Surgery Tyr a Diego History of Open Mara tment Of Carpometacarpal Thumb Fract./Dislocation Nadya Diego History of Wrist Surgery Tyr a Diego Comment on above: 01/2018- left- Dr Víctor goodman, including base of thumb; SARS-CoV-2 & FLU Ant igen (Rapid) Plan of Treatment Date Care Activity Detail Author Start: 10-23-2030 Screening for malignant neoplasm of colon [facility] Start: 2028 Zoster Vaccines (1 o f 2) Zoster Vaccines (1 of 2) [facility] Start: 12-29-2027 Lipid panel Lipid Panel [facility] Start: 05-12-2027 DTaP/Tdap/Td Vaccine s (2 - Td or Tdap) DTaP/Tdap/Td Vaccines (2 - Td or Tdap) [facility] Start: 12-28-2026 Diabetes mellitus screening Diabetes Screening [facility] Start: 06-29-2026 Diabetes mellitus screening Diabetes Screening [facility] Start: 12-28-2025 Diabetes mellitus screening Diabetes Screening [facility] Start: 05-07-2025 Influenza vaccination Influenz a Vaccine (Season Ended) [facility] Start: 03-12-2025 End: 03-12-2025 Patient encounter procedure 03/12/2025 1:00 PM EDT Office Visit Formerly named [facility] [address] [place] [address] [place]ño [place] [address] [place] [address] Formerly named [facility] Start: 12-28-2024 Diabetes mellitus screening Diabetes Screening [facility] Start: 12-28-2024 Hemoglobin A1c measurement Diabetes: Hemoglobin A1C [facility] Start: 12-20-2024 End: 12-20-2024 Patient encounter procedure 12/20/2024 8:30 AM EDT Office Visit [facility] [address] [place] [id number] Nadya Grimes MD [address] [facility] [place], [place] [id number] [facility] Start: 11-20-2024 End: 11-20-2025 Beta 2 glycoprotein 1 Ab IgA and IgG and IgM panel - Serum Beta-2 Glycoprotein Antibodies Lab Routine Acute deep vein thrombosis (DVT) of left lower extremity, unspecified vein (Multi) Anticoagulation management encounter Family history of clotting disorder Expected: 11/20/2024 (Approximate), Expires: 11/20/2025 [facility] Work Phone: Comment on above: Expected: 11/20/2024 (Approximate), Expires: 11/20/2025 Start: 11-20-2024 End: 11-20-2025 Cardiolipin Ab [Units/volume] in Serum by Immunoassay Anti-Cardiolipin Antibody (IgA, IgG, and IgM) Lab Routine Acute deep vein thrombosis (DVT) of left lower extremity, unspecified vein (Multi) Anticoagulation management encounter Family history of clotting disorder Expected: 11/20/2024 (Approximate), Expires: 11/20/2025 [facility] Work Phone: Comment on above: Expected: 11/20/2024 (Approximate), Expires: 11/20/2025 Start: 11-20-2024 End: 11-20-2025 CBC panel - Blood by Automated count CBC Lab Routine Acute deep vein thrombosis (DVT) of left lower extremity, unspecified vein (Multi) Anticoagulation management encounter Family history of clotting disorder Expected: 11/20/2024 (Approximate), Expires: 11/20/[address] [facility] Service Area Work Phone: Comment on above: Expected: 11/20/2024 (Approximate), Expires: 11/20/2025 Start: 11-20-2024 End: 11-20-2025 Comprehensive metabolic 2000 panel - Serum or Plasma Comprehensive Metabolic Panel Lab Routine Acute deep vein thrombosis (DVT) of left lower extremity, unspecified vein (Multi) Anticoagulation management encounter Family history of clotting disorder Expected: 11/20/2024 (Approximate), Expires: 11/20/2025 [facility] Work Phone: Comment on above: Expected: 11/20/2024 (Approximate), Expires: 11/20/2025 Start: 11-20-2024 End: 11-20-2025 F5 gene [id number] [Presence] in Blood or Tissue by Molecular genetics method Factor V Leiden Lab Routine Acute deep vein thrombosis (DVT) of left lower extremity, unspecified vein (Multi) Anticoagulation management encounter Family history of clotting disorder Expected: 11/20/2024 (Approximate), Expires: 11/20/2025 [facility] Work Phone: Comment on above: Expected: 11/20/2024 (Approximate), Expires: 11/20/2025 Start: 11-20-2024 End: 11-20-2025 Prothrombin Gene Mutation Analysis Prothrombin Gene Mutation Analysis Lab Routine Acute deep vein thrombosis (DVT) of left lower extremity, unspecified vein (Multi) Anticoagulation management encounter Family history of clotting disorder Expected: 11/20/2024 (Approximate), Expires: 11/20/2025 [facility] Work Phone: Comment on above: Expected: 11/20/2024 (Approximate), Expires: 11/20/2025 Start: 08-25-2024 End: 02-23-2025 Hepatic function 2000 panel - Serum or Plasma Hepatic Function Panel Lab Routine Increased liver enzymes Expected: 08/25/2024 (Approximate), Expires: 02/23/[address] [facility] Service Area Work Phone: Comment on above: Expected: 08/25/2024 (Approximate), Expires: 02/23/2025 Start: 06-29-2024 Hemoglobin A1c measurement Diabetes: Hemoglobin A1C [facility] Start: 05-07-2024 COVID-19 Vaccine ( season) COVID-19 Vaccine ( season) [facility] Start: 05-07-2024 COVID-19 Vaccine ( season) COVID-19 Vaccine ( season) [facility] Start: 05-07-2024 Influenza vaccination Influenza Vacc ine (#1) [facility] Start: 12-29-2023 Hemoglobin A1c measurement Diabetes: Hemoglobin A1C [facility] Start: 12-29-2023 End: 12-26-2024 Hemoglobin A1c/Hemoglobin.total in Blood Hemoglobin A1C Lab Routine Prediabetes Expected: 12/29/2023 (Approximate), Expires: 12/26/[address] [facility] Service Area Work Phone: Comment on above: Expected: 12/29/2023 (Approximate), Expires: 12/26/2024 Start: 12-29-2023 End: 12-26-2024 Thyrotropin [Units/volume] in Serum or Plasma TSH Lab Routine Abnormal TSH Expected: 12/29/2023 (Approximate), Expires: 12/26/2024 [facility] Work Phone: Comment on above: Expected: 12/29/2023 (Approximate), Expires: 12/26/2024 Start: 12-29-2023 End: 12-29-2023 Patient encounter procedure 12/29/2023 7:00 AM EDT Office Visit [facility] [address] [place] [address] Nadya Grimes MD [address] [facility] [place] [address] [facility] Start: 09-10-2023 End: 09-10-2024 Colonoscopy study Colonoscopy Screening; Average Risk Patient Endoscopy Routine Screening for colon cancer Expected: 09/10/2023, Expires: 09/10/2024 [facility] Area Work Phone: Comment on above: Expected: 09/10/2023 , Expires: 09/10/2024 Start: 06-29-2023 End: 06-28-2024 Hemoglobin A1c/Hemoglobin.total in Blood Hemoglobin A1C Lab Routine Prediabetes Expected: 06/29/2023 (Approximate), Expires: 06/28/[address] [facility] Service [facility] Work Phone: Comment on above: Expected: 06/29/2023 (Approximate), Expires: 06/28/2024 Start: 05-07-2023 COVID-19 Vaccine ( season) COVID-19 Vaccine ( season) [facility] Start: 05-07-2023 Influenza vaccination Influenz a Vaccine (Season Ended) [facility] Start: 12-31-2022 End: 06-25-2023 Hemoglobin A1c/Hemoglobin.total in Blood Hemoglobin A1C Lab Routine Prediabetes Expected: 12/31/2022 (Approximate), Expires: 06/25/[address] [facility] Service Area Work Phone: Comment on above: Expected: 12/31/2022 (Approximate), Expires: 06/25/2023 Start: 12-31-2022 End: 06-25-2023 Thyrotropin [Units/volume] in Serum or Plasma Thyroid Stimulating Hormone Lab Routine Abnormal TSH Expected: 12/31/2022 (Approximate), Expires: 06/25/2023 [facility] Work Phone: Comment on above: Expected: 12/31/2022 (Approximate), Expires: 06/25/2023 Start: 12-28-2022 End: 12-25-2023 Lipid 1996 panel - Serum or Plasma Lipid Panel Lab Routine Screening for cholesterol level Expected: 12/28/2022 (Approximate), Expires: 12/25/2023 [facility] Work Phone: Comment on above: Expected: 12/28/2022 (Approximate), Expires: 12/25/2023 Start: 12-28-2022 FUV, Provider: Nadya Grimes, Status: Pen, Time: 11:00 AM FUV, Provider: Nadya Grimes, Status: Pen, Time: 11:00 AM -[facility] Work Phone: Start: 12-01-2022 Hemoglobin A1c measurement Diabetes: Hemoglobin A1C [facility] Start: 10-02-2022 FUV, Provider: Mason Bermudez, Status: Pen, Time: 1:40 PM FUV, Provider: Mason Bermudez, Status: Pen, Time: 1:40 PM [facility] [address] [facility] Work Phone: Start: 07-17-2022 FUV, Provider: Dillon Sandy, Status: Pen, Time: 8:30 AM FUV, Provider: Dillon Sandy, Status: Pen, Time: 8:30 AM [facility] [address] Work Phone: Start: 06-04-2022 EPV, Provider: Nadya Grimes, Status: Pen, Time: 11:10 AM EPV, Provider: Nadya Grimes, Status: Pen, Time: 11:10 AM [facility] Work Phone: Start: 04-24-2022 EPV, Provider: Nadya Grimes, Status: Pen, Time: 8:00 AM EPV, Provider: Nadya Grimes, Status: Pen, Time: 8:00 AM [facility] Work Phone: Start: 04-13-2022 FUV, Provider: Dillon Sandy, Status: Pen, Time: 8:30 AM FUV, Provider: Dillon Sandy, Status: Pen, Time: 8:30 AM [facility] Work Phone: Start: 03-20-2022 FUV, Provider: Mason Bermudez, Status: Pen, Time: 9:00 AM FUV, Provider: Mason Bermudez, Status: Pen, Time: 9:00 AM [facility] [address] [facility] Work Phone: Start: 12-30-2021 ADLTPSG, Provider: [facility] 2,[id number], Status: Pen, Time: 7:30 PM ADLTPSG, Provider: [facility] RM 2,[id number], Status: Pen, Time: 7:30 PM [facility] 400 DO Work Phone: Start: 12-02-2021 FUV, Provider: Nadya Grimes, Status: Pen, Time: 11:00 AM FUV, Provider: Nadya Grimes, Status: Pen, Time: 11:00 AM [facility] Work Phone: Start: 11-21-2021 NPV, Provider: Dillon Sandy, Status: Pen, Time: 1:00 PM NPV, Provider: Dillon Sandy, Status: Pen, Time: 1:00 PM [facility] Work Phone: Start: 11-03-2021 NPV, Provider: Dillon Sandy, Status: Pen, Time: 8:30 AM NPV, Provider: Dillon Sandy, Status: Pen, Time: 8:30 AM [facility] Work Phone: Start: 10-17-2021 FUV, Provider: Mason Bermudez, Status: Pen, Time: 9:00 AM FUV, Provider: Mason Bermudez, Status: Pen, Time: 9:00 AM [facility] Work Phone: Start: 07-01-2021 FUV, Provider: Nadya Grimes, Status: Pen, Time: 8:00 AM FUV, Provider: Nadya Grimes, Status: Pen, Time: 8:00 AM [facility] Work Phone: Start: 05-13-2021 FUV, Provider: Mason Bermudez, Status: Pen, Time: 8:40 AM FUV, Provider: Mason Bermudez, Status: Pen, Time: 8:40 AM [facility] Work Phone: Start: 11-28-2020 COVID-19 Vaccine (3 - Booster for Pfizer series) COVID-19 Vaccine (3 - Booster for Pfizer series) [facility] Start: 11-28-2020 COVID-19 Vaccine (3 - Pfizer series) COVID-19 Vaccine (3 - Pfizer series) [facility] Start: 1997 Hepatitis B Vaccines (1 of 3 - 19+ 3-dose series) Hepatitis B Vaccines (1 of 3 - 19+ 3-dose series) [facility] Start: 1979 MMR Vaccines (1 of 1 - Standard series) MMR Vaccines (1 of 1 - Standard series) [facility] Start: 1978 Hepatitis B Vaccines (1 of 3 - 3-dose series) Hepatitis B Vaccines (1 of 3 - 3-dose series) [facility] Start: 1978 HIV screening HIV Screening [facility] Start: 1978 Lipid panel Lipid Panel [facility] Start: 1978 Screening for malignant neoplasm of colon [facility] Start: 1978 Yearly Adult Physical Yearly Adult P hysical [facility] End: 10-25-2023 Moderate Sedation Moderate Sedation Procedures Routine Once for 1 Occurrences starting 10/25/2023 until 10/25/[address] [facility] Service Area Work Phone: Comment on above: Once for 1 Occurrenc es starting 10/25/2023 until 10/25/2023 Patient Education Coronavirus Di sease 2019 (COVID-19): Caring for Yourself or Others ED Fever Control (Adult) [facility] Work Phone: Surgical pathology study [facility] Work Phone: Comment on above: Release Upon Orderin g for 1 Occurrences starting 10/25/2023 Release Upon Orderin g for 1 Occurrences starting 10/25/2023, 1 completed [facility] Work Phone: NEGATED: Highlighted row has been ruled out! Planned Goals not documented [facility] Work Phone: Immunizations Immunization Date Immunization Notes Care Provider Fa [facility] 06-17-2023 influenza, injectabl e, quadrivalent, preservative free Nadya Grimes MD Work Phone: [facility] Work Phone: 06-17-2023 influenza virus vaccine, unspecified formulation Ndaya Grimes MD Work Phone: [facility] Work Phone: 06-03-2021 influenza, injectabl e, quadrivalent, contains preservative Nadya Grimes MD Work Phone: [facility] Work Phone: 06-03-2021 influenza, injectabl e, quadrivalent, preservative free; Translations: [Fluarix Quadrivalent 0.5 ML Intramuscular Suspension Prefilled Syringe] Nadya Grimes Work Phone: [facility] Work Phone: Comment on above: Series: 06-03-2021 influenza virus vaccine, unspecified formulation Nadya Grimes MD Work Phone: [facility] Work Phone: 2020 Pfizer-BioNTech COVID-19 Vacc 30 MCG/0.3ML Intramuscular Suspension; Translations: [Pfizer-BioNTech COVID-19 Vacc 30 MCG/0.3ML Intramuscular Suspension] [facility] Comment on above: Series: 09-12-2020 Pfizer-BioNTech COVID-19 Vacc 30 MCG/0.3ML Intramuscular Suspension; Translations: [Pfizer-BioNTech COVID-19 Vacc 30 MCG/0.3ML Intramuscular Suspension] [facility] Comment on above: Series: 05-10-2020 influenza, injectabl e, quadrivalent, contains preservative Nadya Grimes MD Work Phone: [facility] Work Phone: 05-10-2020 influenza, injectabl e, quadrivalent, preservative free; Translations: [Fluarix Quadrivalent 0.5 ML Intramuscular Suspension Prefilled Syringe] Nadya Grimes [facility] Work Phone: Comment on above: Series: 06-19-2019 influenza, injectabl e, quadrivalent, contains preservative Nadya Grimes MD Work Phone: [facility] Work Phone: 06-19-2019 influenza, injectabl e, quadrivalent, preservative free Nadya Grimes [facility] Work Phone: Comment on above: Series: 06-07-2018 influenza, injectabl e, quadrivalent, contains preservative Nadya Grimes MD Work Phone: [facility] Work Phone: 06-07-2018 influenza, injectabl e, quadrivalent, preservative free Nadya Grimes [facility] Work Phone: Comment on above: Series: 05-24-2017 influenza, injectabl e, quadrivalent, preservative free Nadya Grimes MD Work Phone: [facility] Work Phone: 05-12-2017 tetanus toxoid, redu david diphtheria toxoid, and acellular pertussis vaccine, adsorbed Nadya Grimes MD Work Phone: [facility] Work Phone: 09-06-2016 tetanus toxoid, redu david diphtheria toxoid, and acellular pertussis vaccine, adsorbed [facility] Work Phone: Comment on above: Series: 05-27-2016 influenza, injectabl e, quadrivalent, preservative free Nadya Grimes MD Work Phone: [facility] Work Phone: 05-24-2014 influenza virus vaccine, unspecified formulation Nadya Grimes MD Work Phone: [facility] Work Phone: 05-24-2014 influenza, injectabl e, quadrivalent, preservative free; Translations: [Fluarix Quadrivalent 0.5 ML SUSP] [facility] Work Phone: Comment on above: Series: Payers Date Payer Category Payer Self-pay 2023 Managed Care (Private) [facility] [id number] 2023 Private Health Insurance [facility] [id number] 2023-Present [address] [place] [address] [id number] 2023 Unknown [id number] 2022 Unknown 2004 Unknown [id number] 2004-2014 O [id number] 1978 Unknown [id number] [id number]. 2.356 1978 Unknown [id number] [id number]. 2.356 1978 Unknown [id number] [id number]. 2.356 1978 Unknown [id number] [id number]. 2.356 1978 Unknown [id number] [id number]. 2.1245 1978 Unknown [id number] [id number]. 2.1245 1978 Unknown [id number] [id number]. 2.1245 1978 Unknown [id number] [id number]. 2.1244 1978 Unknown [id number] [id number]. 2.1244 1978 Unknown [id number] [id number]. 2.1244 Unknown [id number] Unknown [id number] Unknown [id number] [id number]. 2.462 Unknown [id number]. 2.462 Social History Date Type Detail Facility Start: 1980 Sex Assigned At Not on file [facility] Start: 12-18-2022 End: 11-20-2024 Exposure to SARS-CoV-2 (event) Not sure [facility] Start: 12-28-2022 End: 12-20-2024 Non-smoker Non-smoker [facility] Comment on above: Smoked for 20 years, 1 pack daily and Quit 11/2012; works at [employer]; Start: 05-05-2022 Tobacco smoking status WIIS Unknown if ever smoked [facility] Work Phone: Start: 1980 Sex Assigned At Male [facility] Work Phone: Start: 12-28-2022 End: 08-25-2024 Tobacco smoking status NHIS Ex-smoker [facility] Work Phone: End: 09-06-2002 History of tobacco use Current smoker [facility] Work Phone: End: 09-06-2002 History of tobacco use Cigarette Smoker [facility] Work Phone: Start: 12-28-2022 End: 08-25-2024 Tobacco use and exposure Smokeless tobacco non-user [facility] Work Phone: Start: 12-28-2022 End: 12-20-2024 Tobacco use panel [facility] Start: 06-29-2023 End: 12-20-2024 Alcohol intake Ex-drinker (finding) [facility] Work Phone: History of tobacco use Passive smoker [facility] Work Phone: NEGATED: Highlighted row - - [facility] Work Phone: Functional Status Date Assessment Result Facility 12-20-2024 Generalized anxiety disorder 7 item (ELMER-7) [facility] Work Phone: 12-20-2024 Patient Health Questionnaire 2 item (PHQ-2) [Reported] [facility] Work Phone: 12-20-2024 PHQ-9 quick depressi on assessment panel [Reported.PHQ] [facility] Work Phone: 06-25-2022 PHQ-9 [id number] Moder ate (-) [facility] Work Phone: 06-03-2021 IO PHQ9 IO PHQ9 7 [facility] Work Phone: 09-30-2020 IO PHQ9 IO PHQ9 5 [facility] Work Phone: 09-13-2020 PHQ-9 Adult Depressi on Score PHQ-9 Adult Depression Score 4 [facility]krxabi[facility] Work Phone: Comment on above: Q1: 1, Q2: 0, Q3: 2, Q4: 0, Q5: 0, Q6: 0, Q7: 1, Q8: 0, Q9: 0, 08-26-2020 PHQ-9 Adult Depressi on Score; Abnormal PHQ-9 Adult Depression Score 9 [facility] Work Phone: Comment on above: Q1: 1, Q2: 1, Q3: 3, Q4: 2, Q5: 0, Q6: 0, Q7: 1, Q8: 1, Q9: 0, 08-12-2020 PHQ-9 Adult Depressi on Score PHQ-9 Adult Depression Score 13 [facility] Work Phone: Comment on above: Q1: 2, Q2: 2, Q3: 3, Q4: 3, Q5: 0, Q6: 1, Q7: 2, Q8: 0, Q9: 0, 08-05-2020 IO PHQ9 IO PHQ9 18 [facility] Work Phone: 07-22-2020 PHQ-9 Adult Depressi on Score PHQ-9 Adult Depression Score 11 [facility] Work Phone: Comment on above: Q1: 1, Q2: 1, Q3: 3, Q4: 2, Q5: 1, Q6: 1, Q7: 2, Q8: 0, Q9: 0, [facility] Work Phone: NEGATED: Highlighted row Functional performance Functional status health issues are not documented Disease [facility] Work Phone: Mental Status Date Assessment Result Facility NEGATED: Highlighted row Cognitive function [Interpretation] Cognitive status health issues are not documented Disease [facility] Work Phone: Clinical Notes 04-17-2010 to 12-20-2024 Assessment & Plan Note - Nadya Grimes MD - 12/20/2024 8:30 AM EDTAssessment & Plan Note - Nadya Grimes MD - 12/20/2024 8:30 AM EDTTsudhakar Grimes MD - 12/20/2024 8:30 AM EDTPatient Instructions Note Date & Type Note Facility 12-20-2024 Evaluation + Plan note Associated Problem(s): Prediabetes Diet and exercise [facility] Work Phone: 12-20-2024 Evaluation + Plan note Associated Problem(s): Depression, major, recurrent, in remission (CMS-HCC) Wellbutrin Cymbalta Orders: Referral to Psychiatry; Future [facility] Work Phone: 12-20-2024 Evaluation + Plan note Associated Problem(s): Anxiety, mild See depression Orders: Referral to Psychiatry; Future [facility] Work Phone: 12-20-2024 Evaluation + Plan note Associated Problem(s): Obstructive sleep apnea syndrome 2018- PSG- mild- started CPAP- saw Dr Sterling but unable to use CPAP- uses mouth appliance [facility] Work Phone: 12-20-2024 Evaluation + Plan note Associated Problem(s): Class 3 severe obesity due to excess calories without serious comorbidity with body mass index (BMI) of 40.0 to 44.9 in adult Patient's BMI is elevated. Plan- diet and exercise- BMI is elevated. Need to increase activity on a daily basis especially walking. Monitor total calories per day- decrease carbohydrates and fats. Goal - lose 1-2 pounds per week. Recommend 150 minutes of moderate-intensity exercise as tolerated per week and 2-3 days of resistance, flexibility, and neuromotor exercises per week. Normal BMI- 18.5-25 Overweight= BMI 26-29 Obese= BMI 30-39 Morbidly Obese = BMI >40 [facility] Work Phone: 12-20-2024 History of Present illness Narrative PRIMARY CARE- OFFICE VISIT Subjective Subjective Arnaldo Barry. Is 44 y.o.. male. Here for follow up office visit- Chief Complaint Patient presents with Follow-up HPI: Follow up for anxiety , depression , PTSD, ANUPAM, panic d/o, prediabetes , elevated BMI Scales reviewed- discussed #9 of PHQ9 - Some depression after surgery- long recovery DVT- factor 5 leiden Weight gain Denies true suicidal ideation- declines wanting to harm himself, no plan Locked gun in house - denies would use to harm self [facility]- Bachelors - business administration[facility] ELMER-7 Total Score: 8 (12/20/24 0812) Patient Health Questionnaire-9 Score: 16 (12/20/24 0810) Patient Health Questionnaire-2 Score: 4 (12/20/24 0810) Pt is doing well Other medical specialists are involved in patient's care. Any recent notes that were available were reviewed. All conditions are monitored, evaluated and assessed regularly. Patient is compliant with current treatment regimen/medications. Specialists involved include: Dr Vika Bermudez- manages [facility] Dr Fitzgerald- GI- 10/[address] Cedeño- Vascular - Eliquis- DVTLLE Lab Results Component Value Date HGBA1C 5.8 (H) 12/29/2023 Working for Safety in [place]- Traffic Due for lab Orders Only on 11/20/2024 Component Date Value Ref Range Status PROTEIN, TOTAL 11/20/2024 6.9 6.1 - 8.1 g/dL Final ALBUMIN 11/20/2024 4.5 3.6 - 5.1 g/dL Final GLOBULIN 11/20/2024 2.4 1.9 - 3.7 g/dL (calc) Final ALBUMIN/GLOBULIN RATIO 11/20/2024 1.9 1.0 - 2.5 (calc) Final BILIRUBIN, TOTAL 11/20/2024 0.3 0.2 - 1.2 mg/dL Final BILIRUBIN, DIRECT 11/20/2024 0.1 < OR = 0.2 mg/dL Final BILIRUBIN, INDIRECT 11/20/2024 0.2 0.2 - 1.2 mg/dL (calc) Final ALKALINE PHOSPHATASE 11/20/2024 59 36 - 130 U/L Final AST 11/20/2024 37 10 - 40 U/L Final ALT 11/20/2024 75 (H) 9 - 46 U/L Final Office Visit on 11/20/2024 Component Date Value Ref Range Status WHITE BLOOD CELL COUNT 11/20/2024 7.3 3.8 - 10.8 Thousand/uL Final RED BLOOD CELL COUNT 11/20/2024 5.12 4.20 - 5.80 Million/uL Final HEMOGLOBIN 11/20/2024 15.1 13.2 - 17.1 g/dL Final HEMATOCRIT 11/20/2024 44.4 38.5 - 50.0 % Final MCV 11/20/2024 86.7 80.0 - 100.0 fL Final MCH 11/20/2024 29.5 27.0 - 33.0 pg Final MCHC 11/20/2024 34.0 32.0 - 36.0 g/dL Final Comment: For adults, a slight decrease in the calculated MCHC value (in the range of 30 to 32 g/dL) is most likely not clinically significant; however, it should be interpreted with caution in correlation with other red cell parameters and the patient's clinical condition. RDW 11/20/2024 13.0 11.0 - 15.0 % Final PLATELET COUNT 11/20/2024 294 140 - 400 Thousand/uL Final MPV 11/20/2024 9.7 7.5 - 12.5 fL Final GLUCOSE 11/20/2024 90 65 - 139 mg/dL Final Comment: Non-fasting reference interval UREA NITROGEN (BUN) 11/20/2024 13 7 - 25 mg/dL Final CREATININE 11/20/2024 1.08 0.60 - 1.29 mg/dL Final EGFR 11/20/2024 86 > OR = 60 mL/min/1.73m2 Final SODIUM 11/20/2024 139 135 - 146 mmol/L Final POTASSIUM 11/20/2024 4.1 3.5 - 5.3 mmol/L Final CHLORIDE 11/20/2024 105 98 - 110 mmol/L Final CARBON DIOXIDE 11/20/2024 28 20 - 32 mmol/L Final ELECTROLYTE BALANCE 11/20/2024 6 (L) 7 - 17 mmol/L (calc) Final CALCIUM 11/20/2024 9.7 8.6 - 10.3 mg/dL Final PROTEIN, TOTAL 11/20/2024 7.0 6.1 - 8.1 g/dL Final ALBUMIN 11/20/2024 4.5 3.6 - 5.1 g/dL Final BILIRUBIN, TOTAL 11/20/2024 0.2 0.2 - 1.2 mg/dL Final ALKALINE PHOSPHATASE 11/20/2024 61 36 - 130 U/L Final AST 11/20/2024 37 10 - 40 U/L Final ALT 11/20/2024 76 (H) 9 - 46 U/L Final CARDIOLIPIN AB (IGA) 11/20/2024 2.1 APL-U/mL Final Comment: Value Interpretation ----- < 20.0 Antibody not detected > or = 20.0 Antibody detected CARDIOLIPIN AB (IGG) 11/20/2024 <2.0 GPL-U/mL Final Comment: Value Interpretation ----- < 20.0 Antibody not detected > or = 20.0 Antibody detected CARDIOLIPIN AB (IGM) 11/20/2024 <2.0 MPL-U/mL Final Comment: Value Interpretation ----- < 20.0 Antibody not detected > or = 20.0 Antibody detected The antiphospholipid antibody syndrome (APS) is a clinical-pathologic correlation that includes a clinical event (e.g. arterial or venous thrombosis, morbidity) and persistent positive antiphospholipid antibodies (IgM, IgG Cardiolipin or b2GPI antibodies greater than the 99th percentile; or a lupus anticoagulant). International consensus guidelines for APS suggest waiting at least 12 weeks before retesting to confirm antibody persistence. The Systemic Lupus International [facility] immunological classification criteria for systemic lupus erythematosus (SLE) include testing for isotype IgA, which has yet to be incorporated into APS criteria. Low level antiphospholipid antibodies may sometimes be detected in the setting of infection, drug therapy or aging. For additional information, please refer to http ://BioAmber.Stockdrift /faq/TDI616 (This link is being provided for informational/ educational purposes only.) B2 GLYCOPROTEIN I (IGG)AB 11/20/2024 <2.0 <20.0 U/mL Final Comment: Value Interpretation ----- < 20.0 Antibody not detected > or = 20.0 Antibody detected B2 GLYCOPROTEIN I (IGM)AB 11/20/2024 <2.0 <20.0 U/mL Final Comment: Value Interpretation ----- < 20.0 Antibody not detected > or = 20.0 Antibody detected B2 GLYCOPROTEIN I (IGA)AB 11/20/2024 <2.0 <20.0 U/mL Final Comment: Value Interpretation ----- < 20.0 Antibody not detected > or = 20.0 Antibody detected The antiphospholipid antibody syndrome (APS) is a clinical-pathologic correlation that includes a clinical event (e.g. arterial or venous thrombosis, morbidity) and persistent positive antiphospholipid antibodies (IgM, IgG Cardiolipin or b2GPI antibodies greater than the 99th percentile; or a lupus anticoagulant). International consensus guidelines for APS suggest waiting at least 12 weeks before retesting to confirm antibody persistence. The Systemic Lupus International Collabor[facility] immunological classification criteria for systemic lupus erythematosus (SLE) include testing for isotype IgA, which has yet to be incorporated into APS criteria. Low level antiphospholipid antibodies may sometimes be detected in the setting of infection, drug therapy or aging. For additional information, please refer to http:// BioAmber.Stockdrift/fa q/DKN716 (This link is being provided for informational/ educational purposes only.) FACTOR V (LEIDEN) MUTATION 11/20/2024 POSITIVE (A) Final POSITIVE FOR ONE COPY OF THE FACTOR V LEIDEN (R506Q) VARIANT INTERPRETATION 11/20/2024 See Below (A) Final Comment: INTERPRETATION: This individual is heterozygous for the Factor V Leiden (R506Q) variant in the Factor V gene. Heterozygotes have a 3-8-fold increased risk for venous thrombosis. In addition, other family members may also be carriers of the variant and similarly at risk. Consider genetic counseling and DNA testing for at-risk family members. Laboratory testing supervised and results monitored by Ajit Jimenez, Ph.D., JENNIFER, HANDY, JOSUE. VARIANT ANALYSIS: The Factor V Leiden (R506Q) variant [[id number]:c.1601G>A (p.R534Q)] in the Factor V gene is one of the most common causes of inherited thrombophilia. This variant causes resistance to degradation of activated Factor V protein by activated Protein C (APC). The Factor V Leiden (R506Q) variant is detected by amplification of the selected region of the Factor V gene by polymerase chain reaction (PCR) and fluorescent probe hybridization to the targeted region, followed by end-point analysis with a real time Zyrra system. Although rare, false positive or false negative results may occur. All results should be interpreted in context of clinical findings, relevant history, and other laboratory data. Health care providers, please contact your local [employer] genetic counselor or call [employer] ([phone]) for assistance with interpretation of these results. This test was developed and its analytical performance characteristics have been determined by [employer] [facility]. It has not been cleared or approved by the FDA. This assay has been validated pursuant to the CLIA regulations and is used for clinical purposes. PROTHROMBIN (FACTOR II) 09298L>A M* 11/20/2024 NEGATIVE Final RESULT: [id number] VARIANT NOT DETECTED INTERPRETATION 11/20/2024 See Below Final Comment: INTERPRETATION: This individual is negative (normal) for the [id number] variant in the Prothrombin/Factor II gene. Increased risk of thrombophilia can be caused by a variety of genetic and non-genetic factors not screened for by this assay. Laboratory testing supervised and results monitored by Ajit Jimenez, Ph.D., JENNIFER, HANDY, JOSUE. The V46207T mutation [[id number]: g.52255F>A (c.*97G>A)] in the Prothrombin/Factor II gene is the second most common inherited risk factor for thrombosis occurring in approximately 2% of Caucasians. Presence of the mutation is associated with an elevation of prothrombin levels to about 30% above normal in heterozygotes and to 70% above normal in homozygotes. Prothrombin (D05205Q) mutations are detected by amplification of their selected gene regions by polymerase chain reaction (PCR) and fluorescent probe hybridization to the targeted region, followed by melting curve analysis with a real time PCR system. Although rare, false pos itive or false negative results may occur. All results should be interpreted in context of clinical findings, relevant history, and other laboratory data. Health care providers, please contact your local [employer]' genetic counselor or call [phone] ([phone]) for assistance with interpretation of these results. This test was developed and its analytical performance characteristics have been determined by [employer] [facility]. It has not been cleared or approved by the FDA. This assay has been validated pursuant to the CLIA regulations and is used for clinical purposes. Lab on 12/29/2023 Component Date Value Ref Range Status Hemoglobin A1C 12/29/2023 5.8 (H) see below % Final Estimated Average Glucose 12/29/2023 120 Not Established mg/dL Final Thyroid Stimulating Hormone 12/29/2023 3.33 0.44 - 3.98 mIU/L Final Social History Tobacco Use Smoking Status Former Current packs/day: 0.00 Types: Cigarettes Quit date: 2002 Years since quittin.3 Passive exposure: Past Smokeless Tobacco Never Social History Substance and Sexual Activity Alcohol Use Not Currently Family History Problem Relation Name Age of Onset Psoriasis Mother Colon polyps Mother The 10-year ASCVD risk score (Abram ENGLISH, et al., 2019) is: 1.5% Values used to calculate the score: Age: 44 years Sex: Male Is Non- : No Diabetic: No Tobacco smoker: No Systolic Blood Pressure: 121 mmHg Is BP treated: No HDL Cholesterol: 44.6 mg/dL Total Cholesterol: 153 mg/dL Lifestyle and medical management to decrease cardiovascular risks. The following portions of the patient's chart were reviewed in this encounter and updated as appropriate: Tobacco Allergies Meds Problems Med Hx Surg Hx Fam Hx REVIEW OF SYSTEMS: Review of Systems Objective Objective Vitals: 12/20/24 0813 BP: 121/82 BP Location: Left arm Patient Position: Sitting BP Cuff Size: Large adult Pulse: 101 Resp: 14 Temp: 36.2 C (97.1 F) TempSrc: Temporal SpO2: 91% Weight: 127 kg (279 lb) Height: 1.803 m (5' 11) PHYSICAL: Patient is alert and oriented x 3 , NAD HEAD- normocephalic and atraumatic WGDF-fagvwrhfbcj-[id number], lids - normal EARS/NOSE- normal external exam NECK-supple,FROM CV- RRR without murmur PULM- CTA bilaterally, normal respiratory effort RESPIRATORY EFFORT- normal , no retractions or nasal flaring ABD- normoactive BS's EXT- no edema,NT SKIN- no abnormal skin lesions noted NEURO- no focal deficits PSYCH- pleasant, normal judgement and insight BP Readings from Last 3 Encounters: 12/20/24 121/82 11/20/24 144/84 10/03/24 (!) 140/106 Wt Readings from Last 3 Encounters: 12/20/24 127 kg (279 lb) 11/20/24 127 kg (280 lb) 10/03/24 122 kg (270 lb) BMI Readings from Last 3 Encounters: 12/20/24 38.91 kg/m 11/20/24 40.18 kg/m 10/03/24 39.87 kg/m The number and complexity of problems addressed is considered moderate. The amount and/or complexity of data reviewed and analyzed is considered moderate. The risk of complications and/or morbidity/mortality of patient is considered moderate. Overall, this patient encounter is considered a moderate risk visit. Potential Side effects - NDRI's- Dry mouth. This is the most common complaint about NDRIs. To moisten your mouth, sip water, suck on ice chips, brush your teeth often, and cut down on alcohol, caffeine, and smoking. Nausea. It may help to take your medication with food. Insomnia. NDRIs can energize you and may make it hard to sleep. If this is a problem for you, avoid taking your final dose of the day just before bedtime. Headache. These usually stop a few days after you start taking NDRIs. Weight loss. Some antidepressants can add weight. But NDRIs may lead you to lose a few pounds. Some side effects are less common with NDRIs: Anxiety. Regular exercise can help calm you. So can relaxation practices such as deep breathing yoga, and meditation. Dizziness. This can happen if you stand too quickly. Rise up slowly and drink lots of water. Constipation. High-fiber diet, regular exercise, and plenty of fluids may help you poop. NDRIs can also cause: Fast heart rate Sore throat Uncontrolled shaking Skin rash Sweating Ringing in your ears Stomach pain Muscle pain Drowsiness Vomiting A need to pee often Changes in your sense of taste Assessment/Plan Assessment/Plan Assessment & Plan Prediabetes Diet and exercise Depression, major, recurrent, in remission ([facility]) Wellbutrin Cymbalta Orders: Referral to Psychiatry; Future Anxiety, mild See depression Orders: Referral to Psychiatry; Future Obstructive sleep apnea syndrome 2018- PSG- mild- started CPAP- saw Dr Sterling but unable to use CPAP- uses mouth appliance Class 3 severe obesity due to excess calories without serious comorbidity with body mass index (BMI) of 40.0 to 44.9 in adult Patient's BMI is elevated. Plan- diet and exercise- BMI is elevated. Need to increase activity on a daily basis especially walking. Monitor total calories per day- decrease carbohydrates and fats. Goal - lose 1-2 pounds per week. Recommend 150 minutes of moderate-intensity exercise as tolerated per week and 2-3 days of resistance, flexibility, and neuromotor exercises per week. Normal BMI- 18.5-25 Overweight= BMI 26-29 Obese= BMI 30-39 Morbidly Obese = BMI >40 Refer Psychiatry Call [phone] or go to ED if would feel SI - pt Increase activity Continue medication Follow up in 3 months Time spent during the office visit includes- updating and familiarizing myself with patients past medical history, social history, and allergies : discussing ROS ; obtaining direct chief complaint and history of present illness from patient , reviewing and reconciling current medication list - both prescription and over the counter medications clinically examine patient determine what testing if any is needed to diagnose the condition/conditions with which patient is presenting using medical knowledge to put all of the information together and decide on best course of action to proceed with diagnosis and treatment for the presenting problem or problems Pre-visit planning, chart review, and siow-[id number] encounter Discussion of medications Coordination with office staff for med adjustments Final documentation of visit documented in this encounter [facility] Work Phone: 12-20-2024 Miscellaneous Notes Associated Problem(s): Prediabetes Diet and exercise Associated Problem(s): Depression, major, recurrent, in remission ([facility]-HCC) Wellbutrin Cymbalta Orders: Referral to Psychiatry; Future Associated Problem(s): Anxiety, mild See depression Orders: Referral to Psychiatry; Future Associated Problem(s): Obstructive sleep apnea syndrome 2018- PSG- mild- started CPAP- saw Dr Sterling but unable to use CPAP- uses mouth appliance Associated Problem(s): Class 3 severe obesity due to excess calories without serious comorbidity with body mass index (BMI) of 40.0 to 44.9 in adult Patient's BMI is elevated. Plan- diet and exercise- BMI is elevated. Need to increase activity on a daily basis especially walking. Monitor total calories per day- decrease carbohydrates and fats. Goal - lose 1-2 pounds per week. Recommend 150 minutes of moderate-intensity exercise as tolerated per week and 2-3 days of resistance, flexibility, and neuromotor exercises per week. Normal BMI- 18.5-25 Overweight= BMI 26-29 Obese= BMI 30-39 Morbidly Obese = BMI >40 documented in this encounter [facility] Work Phone: 11-20-2024 History of Present illness Narrative Chief complaint: VTE -leg swelling Subjective Patient is here to establish care He had left ankle surgery late July, it was an outpatient procedure that lasted for 3-4 hours and he was in cast followed by eduardo vasques weeks In August, he was diagnosed with left yjj-iwcuaixs-UNL DVT and has been on Eliquis since Mom with history of unprovoked VTE and factor V Leiden (unclear if homozygous or heterozygous), she recently had a stroke on Xarelto Not on hormones or steroids, former smoker On Eliquis 5 mg twice daily, tolerated well He is using 20-30 mmHg knee-high compression stockings daily 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 He gained weight since surgery He has intermittent left leg swelling, associated with heaviness and discomfort, better in the a.m., worse throughout the day and with sitting Review of Systems As noted above Arthritis Anxiety/depression/panic attacks No melena or other obvious bleeding No chest pain or shortness of breath No lightheadedness or dizziness No leg pain No other complaints today Past Medical History: Diagnosis Date Abnormal levels of other serum enzymes 12/20/2014 Elevated liver enzymes Adjustment disorder with depressed mood 07/31/2020 Grief reaction Ankylosing spondylitis of multiple sites in spine (Multi) Anxiety Cellulitis of unspecified finger 08/02/2015 Cellulitis of finger Depression Encounter for follow-up examination after completed treatment for conditions other than malignant neoplasm 08/02/2020 Hospital discharge follow-up Fracture of unspecified carpal bone, left wrist, initial encounter for closed fracture 01/25/2018 Wrist fracture, left Nasal congestion 03/12/2022 Complaint of nasal congestion Other bursitis of knee, unspecified knee 11/18/2020 Suprapatellar bursitis Other conditions influencing health status 06/03/2021 History of cough Other hypersomnia 07/20/2018 Excessive daytime sleepiness Pain in left knee 11/18/2020 Acute pain of left knee Pain in unspecified finger(s) 08/02/2015 Finger pain Personal history of diseases of the blood and blood-forming organs and certain disorders involving the immune mechanism 01/02/2015 History of anemia Personal history of other diseases of the musculoskeletal system and connective tissue 09/12/2014 History of muscle spasm Personal history of other diseases of the musculoskeletal system and connective tissue 09/12/2014 History of neck pain Personal history of other endocrine, nutritional and metabolic disease 06/27/2019 History of obesity Personal history of other mental and behavioral disorders 11/30/2014 History of depression Personal history of other specified conditions 03/04/2020 History of fatigue Personal history of other specified conditions 07/20/2018 History of fatigue Personal history of other specified conditions 07/20/2018 History of snoring Personal history of other specified conditions 06/02/2021 History of abdominal pain Personal history of other specified conditions 06/03/2021 History of flank pain Sleep apnea Strain of left quadriceps muscle, fascia and tendon, initial encounter 11/19/2020 Quadriceps strain, left, initial encounter Past Surgical History: Procedure Laterality Date ANKLE SURGERY 04/12/2014 Ankle Surgery OTHER SURGICAL HISTORY 02/14/2018 Open Treatment Of Carpometacarpal Thumb Fract./Dislocation OTHER SURGICAL HISTORY 02/14/2018 Wrist Surgery Social History Socioeconomic History Marital status: Single Tobacco Use Smoking status: Former Current packs/day: 0.00 Types: Cigarettes Quit date: 2002 Years since quittin.2 Passive exposure: Past Smokeless tobacco: Never Substance and Sexual Activity Alcohol use: Not Currently Drug use: Never Family History Problem Relation Name Age of Onset Psoriasis Mother Colon polyps Mother Allergies Allergen Reactions Sulfa (Sulfonamide Antibiotics) Rash Sulfamethoxazole Rash Objective Physical Exam BP 144/84 (BP Location: Right arm, Patient Position: Sitting) Pulse 90 Ht 1.778 m (5' 10) Wt 127 kg (280 lb) BMI 40.18 kg/m General: In no acute distress, overweight Neuro: alert and oriented x3 CV: RRR Lungs: CTA bilaterally Abd: Soft, non-tender Psych: Appropriate affect Upper extremities: No swelling Lower extremities: LLE trace edema. Bilateral +2 DP Skin: No spider/reticular/varicose veins or Chronic venous stasis changes Medications Current Outpatient Medications Medication Instructions apixaban (ELIQUIS) 5 mg, oral, 2 times daily buPROPion XL (WELLBUTRIN XL) 150 mg, oral, Daily cholecalciferol, vitamin D3, 10 mcg (400 unit) capsule Daily RT DULoxetine (CYMBALTA) 30 mg, oral, 3 times daily hydroxychloroquine (PLAQUENIL) 200 mg, oral, Daily hydrOXYzine HCL (ATARAX) 25 mg, oral, 3 times daily PRN tadalafil (CIALIS) 5 mg, oral, Daily Lab Review Recent Labs 10/24/21 0953 06/03/21 0836 05/13/21 1013 03/04/20 1141 NA 140 140 141 138 K 4.3 4.0 4.6 4.2 CL 101 104 105 105 CO2 30 28 29 24 ANIONGAP 13 12 12 13 BUN 15 16 9 15 CREATININE 1.10 1.12 1.08 1.07 Recent Labs 10/24/21 0953 06/03/21 0836 05/13/21 1013 03/04/20 1141 ALBUMIN 4.7 4.3 4.5 4.5 ALKPHOS 52 57 60 42 ALT 34 41 42 33 AST 21 24 22 26 BILITOT 0.2 0.3 0.3 0.4 Recent Labs 10/24/21 0953 06/03/21 0836 05/13/21 1013 11/11/20 1152 03/04/20 1141 WBC 7.7 6.1 6.6 6.9 5.9 HGB 15.3 13.7 14.1 14.5 13.5 HCT 46.5 41.5 42.0 44.5 41.8 PLT 308 291 259 280 270 MCV 89 89 88 89 85 No results for input(s): PTT, INR, HAUF, DDIMERVTE, HAPTOGLOBIN, FIBRINOGEN in the last 35832 hours. PTT - No results in last year. Recent Labs 12/28/22 1114 CHOL 153 LDLF 89 HDL 44.6 TRIG 98 Lab Results Component Value Date HGBA1C 5.8 (H) 12/29/2023 Lab Results Component Value Date TSH 3.33 12/29/2023 Imaging LLE DVT US 08/21/24- OSH Thrombus is seen within the left popliteal vein, nonocclusive. Thrombus is seen within the peroneal and posterior tibial veins. CTPE 08/21/24- OSH No CT evidence of pulmonary embolism Imaging reports and labs listed above reviewed Assessment/Plan Arnaldo Barry is a 44 y.o. male with PMHx of Obesity, Pre-DM, ANUPAM, Ankylosing spondylitis, psoriasis as a child, colon polyps, former smoker _ 08/2024 LLE [id number]-evbyknhv DVT. No PE. RLE not checked. left ankle surgery late July 2024, ankle was immobilized for weeks after Mom with history of unprovoked VTE and factor V Leiden (unclear if homozygous or heterozygous), she recently had a stroke on Xarelto _ Left leg swelling Likely secondary to recent DVT as well as limited left ankle movement with subsequent decrease in left calf muscle pump His DVT is provoked, but his family history of unprovoked VTE and personal history of autoimmune disease is concerning, we will proceed with further testing Plan --- Continue Eliquis 5 mg twice daily, monitor for bleeding, fall precautions --- Duration of anticoagulation: 6 months for provoked event, longer if there is evidence of hypercoagulability or venous insufficiency especially with obesity and known autoimmune disease --- CBC, CMP Anti-cardiolipin and B2-Glycoprotein antibodies, FVT, PT gene mutation Will hold off checking LAC and other hereditary thrombophilia work up given that the patient is on DOAC --- If patient continues to have intermittent left leg swelling despite adequate conservative measures and when his ankle movement is restored, study to be considered --- Follow-up with the PCP for up-to-date screening and weight management --- Rest as detailed in the Pt s instructions Alesha Cedeño MD documented in this encounter [facility] Work Phone: 11-20-2024 Instructions Alesha Cedeño MD - 11/20/2024 2:00 PM EDT --- Close monitoring to bleeding and fall precautions while on anticoagulation --- Advise being up to date on screening, follow up with PCP --- Advise against hormonal therapy if it is to be required in the future --- Avoid first and second hand smoking --- Weight loss encouraged --- Use compression stockings daily, remove at night for comfort --- Leg elevation above the level of the heart when sitting/sleeping --- If traveling, please stop every 2 hours for at least 15 mins, walk around, wear your compression stockings --- Follow up in 3-4 months, earlier if needed documented in this encounter [facility] Work Phone: 2024 History of Present illness Narrative Images from the original note were not included. NPV REASON: DVT CURRENT ENCOUNTER: Arnaldo Barry is 44 y.o. male here for LLE provoked DVT The patient underwent a left ankle surgery late July 2024. He then developed swelling, erythema with pain. He went to the ED 08/21/24 which completed a venous duplex which showed a thrombus in the left popliteal vein, nonocclusive. Thrombus is seen within the peroneal and posterior tibial veins. He was started on eliquis at that time. The past few weeks he feels much better, the swelling and pain has decreased Previous vein procedures: No Previous phlebitis/DVT/PE: No Previous venous ulcers: No Family hx of varicose veins: No Using medical grade compression stockings: No Previous varicose veins bleeding: No FH: Mother has Factor V LEFT LEG PAIN: 1, HEAVINESS: 1, PARESTHESIAS: 1, and PRETIBIAL EDEMA: 1 LEFT LEG Vilalta total score: 4 Left leg PTS severity: mild PastMedHX: Past Medical History: Diagnosis Date Abnormal levels of other serum enzymes 12/20/2014 Elevated liver enzymes Adjustment disorder with depressed mood 07/31/2020 Grief reaction Ankylosing spondylitis of multiple sites in spine (Multi) Anxiety Cellulitis of unspecified finger 08/02/2015 Cellulitis of finger Depression Encounter for follow-up examination after completed treatment for conditions other than malignant neoplasm 08/02/2020 Hospital discharge follow-up Fracture of unspecified carpal bone, left wrist, initial encounter for closed fracture 01/25/2018 Wrist fracture, left Nasal congestion 03/12/2022 Complaint of nasal congestion Other bursitis of knee, unspecified knee 11/18/2020 Suprapatellar bursitis Other conditions influencing health status 06/03/2021 History of cough Other hypersomnia 07/20/2018 Excessive daytime sleepiness Pain in left knee 11/18/2020 Acute pain of left knee Pain in unspecified finger(s) 08/02/2015 Finger pain Personal history of diseases of the blood and blood-forming organs and certain disorders involving the immune mechanism 01/02/2015 History of anemia Personal history of other diseases of the musculoskeletal system and connective tissue 09/12/2014 History of muscle spasm Personal history of other diseases of the musculoskeletal system and connective tissue 09/12/2014 History of neck pain Personal history of other endocrine, nutritional and metabolic disease 06/27/2019 History of obesity Personal history of other mental and behavioral disorders 11/30/2014 History of depression Personal history of other specified conditions 03/04/2020 History of fatigue Personal history of other specified conditions 07/20/2018 History of fatigue Personal history of other specified conditions 07/20/2018 History of snoring Personal history of other specified conditions 06/02/2021 History of abdominal pain Personal history of other specified conditions 06/03/2021 History of flank pain Sleep apnea Strain of left quadriceps muscle, fascia and tendon, initial encounter 11/19/2020 Quadriceps strain, left, initial encounter Past Surgical History: Procedure Laterality Date ANKLE SURGERY 04/12/2014 Ankle Surgery OTHER SURGICAL HISTORY 02/14/2018 Open Treatment Of Carpometacarpal Thumb Fract./Dislocation OTHER SURGICAL HISTORY 02/14/2018 Wrist Surgery Family History Problem Relation Name Age of Onset Psoriasis Mother Colon polyps Mother Social History Socioeconomic History Marital status: Single Spouse name: Not on file Number of children: Not on file Years of education: Not on file Highest education level: Not on file Occupational History Not on file Tobacco Use Smoking status: Former Current packs/day: 0.00 Types: Cigarettes Quit date: 2002 Years since quittin.0 Passive exposure: Past Smokeless tobacco: Never Substance and Sexual Activity Alcohol use: Not Currently Drug use: Never Sexual activity: Not on file Other Topics Concern Not on file Social History Narrative Not on file Social Drivers of Health Financial Resource Strain: Not on file Food Insecurity: Not on file Transportation Needs: Not on file Physical Activity: Not on file Stress: Not on file Social Connections: Not on file Intimate Partner Violence: Not on file Housing Stability: Not on file Meds: Current Outpatient Medications: apixaban (Eliquis) 5 mg tablet, Take 1 tablet (5 mg) by mouth 2 times a day., Disp: 180 tablet, Rfl: 0 buPROPion XL (Wellbutrin XL) 150 mg 24 hr tablet, Take 1 tablet (150 mg) by mouth once daily., Disp: 90 tablet, Rfl: 3 cholecalciferol, vitamin D3, 10 mcg (400 unit) capsule, Take by mouth once daily., Disp: , Rfl: DULoxetine (Cymbalta) [address] capsule, Take 1 capsule (30 mg) by mouth 3 times a day., Disp: 90 capsule, Rfl: 3 Eliquis DVT-PE Treat 30D Start 5 mg (74 tabs) tablet, TAKE DIRECTED on directions., Disp: , Rfl: hydroxychloroquine (Plaquenil) 200 mg tablet, Take 1 tablet (200 mg) by mouth once daily., Disp: 90 tablet, Rfl: 3 hydrOXYzine HCL (Atarax) 25 mg tablet, Take 1 tablet (25 mg) by mouth 3 times a day as needed for anxiety., Disp: 90 tablet, Rfl: 3 tadalafil (Cialis) 5 mg tablet, Take 1 tablet (5 mg) by mouth once daily., Disp: 90 tablet, Rfl: 1 Allergies: Allergies Allergen Reactions Sulfa (Sulfonamide Antibiotics) Rash Sulfamethoxazole Rash ROS: Review of Systems Constitutional: Negative for activity change, appetite change and unexpected weight change. HENT: Negative. Eyes: Negative. Respiratory: Negative for chest tightness and shortness of breath. Cardiovascular: Positive for leg swelling. Negative for chest pain and palpitations. Gastrointestinal: Negative. Endocrine: Negative. Genitourinary: Negative. Musculoskeletal: Negative. Skin: Negative. Allergic/Immunologic: Negative. Neurological: Negative. Hematological: Negative. Psychiatric/Behavioral: Negative. Objective: Vitals: BP (!) 140/106 (BP Location: Right arm, Patient Position: Sitting) Pulse 105 Wt 122 kg (270 lb) BMI 39.87 kg/m Exam: Physical Exam Vitals reviewed. HENT: Head: Normocephalic and atraumatic. Nose: Nose normal. Mouth/Throat: Mouth: Mucous membranes are moist. Eyes: Conjunctiva/sclera: Conjunctivae normal. Cardiovascular: Rate and Rhythm: Normal rate. Pulses: Normal pulses. Pulmonary: Effort: Pulmonary effort is normal. Musculoskeletal: General: Normal range of motion. Cervical back: Normal range of motion. Right lower leg: Edema present. Left lower leg: Edema present. Skin: General: Skin is warm and dry. Capillary Refill: Capillary refill takes less than 2 seconds. Comments: Scabbing to left ankle incisions Neurological: General: No focal deficit present. Mental Status: He is alert and oriented to person, place, and time. Psychiatric: Mood and Affect: Mood normal. Behavior: Behavior normal. Thought Content: Thought content normal. Judgment: Judgment normal. Labs: Lab Results Component Value Date WBC 7.7 10/24/2021 WBC 6.1 06/03/2021 WBC 6.6 05/13/2021 HGB 15.3 10/24/2021 HGB 13.7 06/03/2021 HGB 14.1 05/13/2021 HCT 46.5 10/24/2021 HCT 41.5 06/03/2021 HCT 42.0 05/13/2021 MCV 89 10/24/2021 MCV 89 06/03/2021 MCV 88 05/13/2021 PLT 308 10/24/2021 Lab Results Component Value Date CREATININE 1.10 10/24/2021 CREATININE 1.12 06/03/2021 CREATININE 1.08 05/13/2021 BUN 15 10/24/2021 BUN 16 06/03/2021 BUN 9 05/13/2021 NA 140 10/24/2021 NA 140 06/03/2021 NA 141 05/13/2021 K 4.3 10/24/2021 K 4.0 06/03/2021 K 4.6 05/13/2021 CL 101 10/24/2021 CL 104 06/03/2021 CL 105 05/13/2021 CO2 30 10/24/2021 CO2 28 06/03/2021 CO2 29 05/13/2021 Imaging: Assessment & Plan: Arnaldo Barry is 44 y.o. male with a history of pre-diabetic who is presents with provoked nonocclusive DVT. It was a pleasure taking care of you today and appreciate your seeing us at our [facility]. Today's plan is as follows: 1) Elevate your legs at rest 2) Wear 20-30mmHg compression stockings, on during the day when standing, off while sleeping - you may buy these over the counter 3) Continue eliquis for at least 3 months since you remain immobile or until seen by vascular medicine 4) No vascular surgery to offer today 5) No limitations to mobilization from a vascular surgery standpoint, exercise and increase activity as recommended by orthopedic surgery 6) I am referring you to vascular medicine will will continue to follow with your care of the DVT 7) I am giving you a eliquis coupon card that you will need to call to activate Damaris Ansari DNP, CERTIFED 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 OPERATOR-BOILER CONTROL TECHNICIAN, AGPCNP-C, PHOTOGRAMMETRIC COMPILATION SPECIALIST-C, AGACNP-BC Senior Nurse Practitioner, [facility], [facility] [address], Office documented in this encounter [facility] Work Phone: 2024 Instructions RUPERTO Romero DNP - 2024 1:00 PM EST Images from the original note were not included. It was a pleasure taking care of you today and appreciate your seeing us at our [facility]. Today's plan is as follows: 1) Elevate your legs at rest 2) Wear 20-30mmHg compression stockings, on during the day when standing, off while sleeping - you may buy these over the counter 3) Continue eliquis for at least 3 months since you remain immobile or until seen by vascular medicine 4) No vascular surgery to offer today 5) No limitations to mobilization from a vascular surgery standpoint, exercise and increase activity as recommended by orthopedic surgery 6) I am referring you to vascular medicine will will continue to follow with your care of the DVT 7) I am giving you a eliquis coupon card that you will need to call to activate Please call the office with any questions at [phone]. You can speak to our secretaries or our clinical nurses for specific questions. For [facility] specific questions, you can also call [phone] or email at [email or web address] If you need coordinating your appointments and testing you can do these at the help desk team leader or by calling my office shortly after your visit. documented in this encounter [facility] Work Phone: 08-25-2024 Evaluation + Plan note Associated Problem(s): DVT (deep venous thrombosis) (Multi) Orders: Referral To Hematology and Oncology; Future [facility] Work Phone: 08-25-2024 Evaluation + Plan note Associated Problem(s): Hospital discharge follow-up [facility] Work Phone: 08-25-2024 Evaluation + Plan note Associated Problem(s): Increased liver enzymes Orders: Hepatic Function Panel; Future [facility] Work Phone: 08-25-2024 History of Present illness Narrative Subjective Arnaldo Barry. Is 43 y.o.. male. Here for follow up office visit- Chief Complaint Patient presents with Hospital Follow-up His leg is still bothering him HPI: How is patient doing today? 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 Started on eliquis. Pain not improving. Intermittent SOB and dizziness. Mr. Barry is a 43-year-old presenting with known left lower extremity DVT, found a few days ago, some pain and swelling in his left calf and behind his left knee for the last 5 days, now with some lightheadedness and trouble breathing as well for the last 5 days, pain and swelling not really getting worse, but not improving either. He was sent back to the emergency department given he has had 4 doses of Eliquis and has not improved yet. He recently had surgery on his left ankle at [facility]. EKG was done US DVT LOWER LEFT Final Result IMPRESSION: Thrombus is seen within the left popliteal vein, nonocclusive. Thrombus is seen within the peroneal and posterior tibial veins. Cbc, PT, BNP , PROSPER level, Mg CTA CHEST (NONGATED) W IVCON PE Final Result IMPRESSION: No CT evidence of pulmonary embolism. Discharged both times- Radha Mother has history Factor 5 leiden Patient Active Problem List Diagnosis Date Noted Hospital discharge follow-up 08/22/2024 Increased liver enzymes 08/22/2024 DVT (deep venous thrombosis) (Multi) 08/21/2024 Erectile dysfunction 12/29/2023 Screen for colon cancer 10/25/2023 Encounter for hepatitis C screening test for low risk patient 12/24/2022 Abnormal TSH 12/23/2022 Ankylosing spondylitis 12/23/2022 Arthralgia of multiple joints 12/23/2022 Controlled REM sleep behavior disorder 12/23/2022 Daytime somnolence 12/23/2022 Eczema 12/23/2022 History of continuous positive airway pressure (CPAP) therapy at home 12/23/2022 HLA B27 (HLA B27 positive) 12/23/2022 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 Anxiety, mild 12/23/2022 Depression, major, recurrent, mild (CMS-HCC) 12/23/2022 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 Posttraumatic stress disorder 12/23/2022 Obstructive sleep apnea syndrome 12/23/2022 Prediabetes 12/23/2022 Psoriatic arthropathy (Multi) 12/23/2022 Panic attack 12/23/2022 Depression, major, recurrent, in remission ([facility]-HCC) 11/18/2022 Patient Care Team: Nadya Grimes MD as PCP - General Nadya Grimes MD as PCP - [facility] PCP Dillon Sandy DO as Consulting Physician (Pulmonary Disease) Mason Bermudez MD as Consulting Physician (Rheumatology) Emiliano Lee MD as Referring Physician (Orthopaedic Surgery) Semaj Fitzgerald MD as Surgeon (Gastroenterology) REVIEW OF SYSTEMS: Objective Vitals: 08/25/24 1235 Pulse: 104 Resp: 16 Temp: 36.6 C (97.8 F) TempSrc: Temporal SpO2: 98% Weight: 122 kg (268 lb 8 oz) PHYSICAL: Patient is alert and oriented x 3 , NAD HEAD- normocephalic and atraumatic BTFH-qyhabshhpyq-ausklp, lids - normal EARS/NOSE- normal external exam NECK-supple,FROM CV- RRR without murmur PULM- CTA bilaterally, normal respiratory effort RESPIRATORY EFFORT- normal , no retractions or nasal flaring ABD- normoactive BS's EXT- no edema,NT SKIN- no abnormal skin lesions noted NEURO- no focal deficits PSYCH- pleasant, normal judgement and insight BP Readings from Last 3 Encounters: 06/20/24 108/64 12/29/23 118/81 10/25/23 98/76 Wt Readings from Last 3 Encounters: 08/25/24 122 kg (268 lb 8 oz) 06/20/24 119 kg (263 lb 3.2 oz) 12/29/23 120 kg (265 lb 3.2 oz) BMI Readings from Last 3 Encounters: 08/25/24 39.65 kg/m 06/20/24 38.87 kg/m 12/29/23 39.16 kg/m The number and complexity of problems addressed is considered moderate. The amount and/or complexity of data reviewed and analyzed is considered moderate. The risk of complications and/or morbidity/mortality of patient is considered moderate. Overall, this patient encounter is considered a moderate risk visit. The patient is here for a hospital follow up. Hospital records were reviewed prior to visit, including relevant labs, imaging findings, hearing aid consultant notes, and discharge summary. Medications were reconciled and are current, reviewed today. Time spent reviewing hospital records prior to today's fpad-ea-wtna office visit= 24 minutes Initial MARTHA note reviewed. Today's kigc-tt-itzt office visit is occurring within - 6 - days of discharge. If appropriate - referrals placed, home health care arranged if needed - community resources discussed with patient/caregiver -such as Assisted Living, Hospice, Support Groups if appropriate- Durable Medical Equipment - see DME orders Additional communication delivered or planned- Patient education provided when applicable. Assessment/Plan Assessment & Plan Acute deep vein thrombosis (DVT) of left lower extremity, unspecified vein (Multi) Orders: Referral To Hematology and Oncology; Future Hospital discharge follow-up Increased liver enzymes Orders: Hepatic Function Panel; Future Continue Eliquis Refer to Hematology Has follow up ortho September Recheck liver test in 3-4 weeks Current Outpatient Medications: buPROPion XL (Wellbutrin XL) 150 mg 24 hr tablet, Take 1 tablet (150 mg) by mouth once daily., Disp: 90 tablet, Rfl: 3 cholecalciferol, vitamin D3, 10 mcg (400 unit) capsule, Take by mouth once daily., Disp: , Rfl: DULoxetine (Cymbalta) [address] capsule, Take 1 capsule (30 mg) by mouth 3 times a day., Disp: 90 capsule, Rfl: 3 Eliquis DVT-PE Treat 30D Start 5 mg (74 tabs) tablet, TAKE DIRECTED on directions., Disp: , Rfl: hydroxychloroquine (Plaquenil) 200 mg tablet, Take 1 tablet (200 mg) by mouth once daily., Disp: 90 tablet, Rfl: 3 hydrOXYzine HCL (Atarax) 25 mg tablet, Take 1 tablet (25 mg) by mouth 3 times a day as needed for anxiety., Disp: 90 tablet, Rfl: 3 tadalafil (Cialis) 5 mg tablet, Take 1 tablet (5 mg) by mouth once daily., Disp: 90 tablet, Rfl: 1 Time spent during the office visit includes- updating and familiarizing myself with patients past medical history, social history, and allergies : discussing ROS ; obtaining direct chief complaint and history of present illness from patient , reviewing and reconciling current medication list - both prescription and over the counter medications clinically examine patient determine what testing if any is needed to diagnose the condition/conditions with which patient is presenting using medical knowledge to put all of the information together and decide on best course of action to proceed with diagnosis and treatment for the presenting problem or problems Pre-visit planning, chart review, and hvwu-ln-ysqj encounter Review of urgent care ?Hospital records (receicved before and/or after visit, or same day) Discussion of medications Coordination with patient and /or office staff for med adjustments Final documentation of visit My total time spent caring for the patient for the day of the encounter (before,during, and after) was = >30 total minutes. (Prep+during visit+post visit) documented in this encounter [facility] Work Phone: 08-25-2024 Miscellaneous Notes Associated Problem(s): DVT (deep venous thrombosis) (Multi) Orders: Referral To Hematology and Oncology; Future Associated Problem(s): Hospital discharge follow-up Associated Problem(s): Increased liver enzymes Orders: Hepatic Function Panel; Future documented in this encounter [facility] Work Phone: 06-20-2024 Evaluation + Plan note Associated Problem(s): Prediabetes Orders: Follow Up In Advanced [facility] Care - PCP - Established [facility] Work Phone: 06-20-2024 Evaluation + Plan note Associated Problem(s): Depression, major, recurrent, in remission (CMS-HCC) [facility] Work Phone: 06-20-2024 Evaluation + Plan note Associated Problem(s): Erectile dysfunction [facility] Work Phone: 06-20-2024 History of Present illness Narrative Subjective Arnaldo Barry. Is 43 y.o.. male. 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 Any recent notes that were available were reviewed. All conditions are monitored, evaluated and assessed regularly. Patient is compliant with current treatment regimen/medications. Specialists involved include: Dr Vika Bermudez- manages Plaquen[facility] Dr Fitzgerald- GI- 10/2023 colonosocpy Exercising in gym 4 days per week Tdap 2016 REVIEW OF SYSTEMS: Objective Vitals: 06/20/24 0815 BP: 108/64 BP Location: Left arm Patient Position: Sitting BP Cuff Size: Large adult Pulse: 89 Resp: 12 Temp: 36.9 C (98.4 F) TempSrc: Temporal SpO2: 95% Weight: 119 kg (263 lb 3.2 oz) Height: 1.753 m (5' 9) PHYSICAL: Patient is alert and oriented x 3 , NAD HEAD- normocephalic and atraumatic ITFM-heiiobpcjhs-rppijn, lids - normal EARS/NOSE- normal external exam NECK-supple,FROM CV- RRR without murmur PULM- CTA bilaterally, normal respiratory effort RESPIRATORY EFFORT- normal , no retractions or nasal flaring ABD- normoactive BS's EXT- no edema,NT SKIN- no abnormal skin lesions noted NEURO- no focal deficits PSYCH- pleasant, normal judgement and insight BP Readings from Last 3 Encounters: 06/20/24 108/64 12/29/23 118/81 10/25/23 98/76 Wt Readings from Last 3 Encounters: 06/20/24 119 kg (263 lb 3.2 oz) 12/29/23 120 kg (265 lb 3.2 oz) 10/25/23 122 kg (270 lb) BMI Readings from Last 3 Encounters: 06/20/24 38.87 kg/m 12/29/23 39.16 kg/m 10/25/23 39.87 kg/m The number and complexity of problems addressed is considered moderate. The amount and/or complexity of data reviewed and analyzed is considered moderate. The risk of complications and/or morbidity/mortality of patient is considered moderate. Overall, this patient encounter is considered a moderate risk visit. Potential Side effects - NDRI's- Dry mouth. This is the most common complaint about NDRIs. To moisten your mouth, sip water, suck on ice chips, brush your teeth often, and cut down on alcohol, caffeine, and smoking. Nausea. It may help to take your medication with food. Insomnia. NDRIs can energize you and may make it hard to sleep. If this is a problem for you, avoid taking your final dose of the day just before bedtime. Headache. These usually stop a few days after you start taking NDRIs. Weight loss. Some antidepressants can add weight. But NDRIs may lead you to lose a few pounds. Some side effects are less common with NDRIs: Anxiety. Regular exercise can help calm you. So can relaxation practices such as deep breathing yoga, and meditation. Dizziness. This can happen if you stand too quickly. Rise up slowly and drink lots of water. Constipation. High-fiber diet, regular exercise, and plenty of fluids may help you poop. NDRIs can also cause: Fast heart rate Sore throat Uncontrolled shaking Skin rash Sweating Ringing in your ears Stomach pain Muscle pain Drowsiness Vomiting A need to pee often Changes in your sense of taste Assessment/Plan Assessment & Plan Prediabetes Orders: Follow Up In Advanced [facility] Care - PCP - Established Depression, major, recurrent, in remission ([facility]-HCC) Erectile dysfunction, unspecified erectile dysfunction type Ordered lab Continue medication Increase activity Follow up in 6 months documented in this encounter [facility] Work Phone: 06-20-2024 Miscellaneous Notes Associated Problem(s): Prediabetes Orders: Follow Up In [facility] - PCP - Established Associated Problem(s): Depression, major, recurrent, in remission ([facility]-HCC) Associated Problem(s): Erectile dysfunction documented in this encounter [facility] Work Phone: 12-29-2023 History of Present illness Narrative Subjective Arnaldo Barry. Is 43 y.o.. male. Here for follow up office visit- Chief Complaint Patient presents with Follow-up Anxiety Depression PTSD (Post-Traumatic Stress Disorder) Sleep Apnea Prediabetes HPI: Follow up for anxiety , depression , PTSD, ANUPAM, panic d/o, prediabetes Scales reviewed ELMER-7 Total Score: 12 (12/29/23 0708) Patient Health Questionnaire-9 Score: 9 (12/29/23 0707) Patient Health Questionnaire-2 Score: 3 (12/29/23 07) Discussed - scales- mother and mother- in -law both living with pt right now - some situational stress- Overall anxiety and depression are stable - feels good on current doses Medication In school full-time - one year left May then do MATEO Declines need for return to psychiatrist at this time Pt is doing well Due for lab 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 Any recent notes that were available were reviewed. All conditions are monitored, evaluated and assessed regularly. Patient is compliant with current treatment regimen/medications. Specialists involved include: Dr Vika Bermudez- manages Plaquen[facility] Dr Fitzgerald- GI- 10/2023 colonosocpy Exercising in gym 4 days per week REVIEW OF SYSTEMS: Objective Vitals: 12/29/23 0703 BP: 118/81 BP Location: Left arm Patient Position: Sitting BP Cuff Size: Large adult Pulse: 85 Resp: 16 Temp: 36.7 C (98.1 F) SpO2: 95% Weight: 120 kg (265 lb 3.2 oz) Height: 1.753 m (5' 9) PHYSICAL: Patient is alert and oriented x 3 , NAD HEAD- normocephalic and atraumatic HWMU-jorbmjmdwie-oajjxk, lids - normal EARS/NOSE- normal external exam NECK-supple,FROM CV- RRR without murmur PULM- CTA bilaterally, normal respiratory effort RESPIRATORY EFFORT- normal , no retractions or nasal flaring ABD- normoactive BS's EXT- no edema,NT SKIN- no abnormal skin lesions noted NEURO- no focal deficits PSYCH- pleasant, normal judgement and insight BP Readings from Last 3 Encounters: 12/29/23 118/81 10/25/23 98/76 09/10/23 (!) 126/94 Wt Readings from Last 3 Encounters: 12/29/23 120 kg (265 lb 3.2 oz) 10/25/23 122 kg (270 lb) 09/10/23 115 kg (254 lb) BMI Readings from Last 3 Encounters: 12/29/23 39.16 kg/m 10/25/23 39.87 kg/m 09/10/23 36.45 kg/m The number and complexity of problems addressed is considered moderate. The amount and/or complexity of data reviewed and analyzed is considered moderate. The risk of complications and/or morbidity/mortality of patient is considered moderate. Overall, this patient encounter is considered a moderate risk visit. Potential Side effects - NDRI's- Dry mouth. This is the most common complaint about NDRIs. To moisten your mouth, sip water, suck on ice chips, brush your teeth often, and cut down on alcohol, caffeine, and smoking. Nausea. It may help to take your medication with food. Insomnia. NDRIs can energize you and may make it hard to sleep. If this is a problem for you, avoid taking your final dose of the day just before bedtime. Headache. These usually stop a few days after you start taking NDRIs. Weight loss. Some antidepressants can add weight. But NDRIs may lead you to lose a few pounds. Some side effects are less common with NDRIs: Anxiety. Regular exercise can help calm you. So can relaxation practices such as deep breathing yoga, and meditation. Dizziness. This can happen if you stand too quickly. Rise up slowly and drink lots of water. Constipation. High-fiber diet, regular exercise, and plenty of fluids may help you poop. NDRIs can also cause: Fast heart rate Sore throat Uncontrolled shaking Skin rash Sweating Ringing in your ears Stomach pain Muscle pain Drowsiness Vomiting A need to pee often Changes in your sense of taste Assessment/Plan Problem List Items Addressed This Visit Active Problems Abnormal TSH Relevant Orders TSH Anxiety, mild - Primary (Chronic) Depression, major, recurrent, in remission (CMS-HCC) (Chronic) Relevant Medications buPROPion XL (Wellbutrin XL) 150 mg 24 hr tablet DULoxetine (Cymbalta) [address] capsule hydrOXYzine HCL (Atarax) 25 mg tablet Erectile dysfunction (Chronic) Relevant Medications tadalafil (Cialis) 5 mg tablet Obstructive sleep apnea syndrome (Chronic) Posttraumatic stress disorder (Chronic) Prediabetes (Chronic) Relevant Orders Hemoglobin A1C Follow Up In Advanced [facility] - PCP - Established Orders Placed This Encounter Procedures Hemoglobin A1C TSH Ordered lab Continue medication Increase activity Follow up in 6 months documented in this encounter [facility] Work Phone: 10-25-2023 Hospital Discharge instructions Laverne George RN - 10/25/2023 12:23 PM EST Patient Instructions Post Procedure The anesthetics, sedatives or narcotics which were given to you today will be acting in your body for the next 24 hours, so you might feel a little sleepy or groggy. This feeling should slowly wear off. Carefully read and follow the instructions. You received sedation today: - Do not drive or operate any machinery or power tools of any kind. - No alcoholic beverages today, not even beer or wine. - Do not make any important decisions or sign any legal documents. - No over the counter medications that contain alcohol or that may cause drowsiness. While it is common to experience mild to moderate abdominal distention, gas, or belching after your procedure, if any of these symptoms occur following discharge from the GI Lab or within one week of having your procedure, call the [facility] to be advised whether a visit to your nearest Urgent Care or Emergency Department is indicated. Take this paper with you if you go. - If you develop an allergic reaction to the medications that were given during your procedure such as difficulty breathing, rash, hives, severe nausea, vomiting or lightheadedness. - If you experience chest pain, shortness of breath, severe abdominal pain, fevers and chills. -If you develop signs and symptoms of bleeding such as blood in your spit, if your stools turn black, tarry, or bloody - If you have not urinated within 8 hours following your procedure. - If your IV site becomes painful, red, inflamed, or looks infected. If you received a biopsy/polypectomy/sphincterotomy the following instructions apply below: __ Do not use Aspirin containing products, non-steroidal medications or anti-coagulants for one week following your procedure. (Examples of these types of medications are: Advil, Arthrotec, Aleve, Coumadin, Ecotrin, Heparin, Ibuprofen, Indocin, Motrin, Naprosyn, Nuprin, Plavix, Vioxx, and Voltarin, or their generic forms. This list is not all-inclusive. Check with your physician or pharmacist before resuming medications.) __ Eat a soft diet today. Avoid foods that are poorly digested for the next 24 hours. These foods would include: nuts, beans, lettuce, red meats, and fried foods. Start with liquids and advance your diet as tolerated, gradually work up to eating solids. __ Do not have a Barium Study or Enema for one week. Your physician recommends the additional following instructions: -You have a contact number available for emergencies. The signs and symptoms of potential delayed complications were discussed with you. You may return to normal activities tomorrow. -Resume your previous diet or other if specified. -Continue your present medications. -We are waiting for your pathology results, if applicable. -The findings and recommendations have been discussed with you and/or family. - Please see Medication Reconciliation Form for new medication/medications prescribed. If you experience any problems or have any questions following discharge from the GI Lab, please call: [phone] from 7 am- 4:30 pm. In the event of an emergency please go to the closest Emergency Department or call Dr. Fitzgerald @ [phone] documented in this encounter [facility] Work Phone: 10-25-2023 Miscellaneous Notes Patient: Arnaldo Barry Pre-sedation Evaluation: Sedation necessary for: Analgesia Requesting service: gi History of Present Illness: screening colonoscopy Past Medical History: Diagnosis Date Abnormal levels of other serum enzymes 12/20/2014 Elevated liver enzymes Adjustment disorder with depressed mood 07/31/2020 Grief reaction Ankylosing spondylitis of multiple sites in spine (CMS/HCC) Anxiety Cellulitis of unspecified finger 08/02/2015 Cellulitis of finger Depression Encounter for follow-up examination after completed treatment for conditions other than malignant neoplasm 08/02/2020 Hospital discharge follow-up Fracture of unspecified carpal bone, left wrist, initial encounter for closed fracture 01/25/2018 Wrist fracture, left Nasal congestion 03/12/2022 Complaint of nasal congestion Other bursitis of knee, unspecified knee 11/18/2020 Suprapatellar bursitis Other conditions influencing health status 06/03/2021 History of cough Other hypersomnia 07/20/2018 Excessive daytime sleepiness Pain in left knee 11/18/2020 Acute pain of left knee Pain in unspecified finger(s) 08/02/2015 Finger pain Personal history of diseases of the blood and blood-forming organs and certain disorders involving the immune mechanism 01/02/2015 History of anemia Personal history of other diseases of the musculoskeletal system and connective tissue 09/12/2014 History of muscle spasm Personal history of other diseases of the musculoskeletal system and connective tissue 09/12/2014 History of neck pain Personal history of other endocrine, nutritional and metabolic disease 06/27/2019 History of obesity Personal history of other mental and behavioral disorders 11/30/2014 History of depression Personal history of other specified conditions 03/04/2020 History of fatigue Personal history of other specified conditions 07/20/2018 History of fatigue Personal history of other specified conditions 07/20/2018 History of snoring Personal history of other specified conditions 06/02/2021 History of abdominal pain Personal history of other specified conditions 06/03/2021 History of flank pain Sleep apnea Strain of left quadriceps muscle, fascia and tendon, initial encounter 11/19/2020 Quadriceps strain, left, initial encounter Principle problems: Patient Active Problem List Diagnosis Date Noted Encounter for hepatitis C screening test for low risk patient 12/24/2022 Abnormal TSH 12/23/2022 Ankylosing spondylitis (CMS/HCC) 12/23/2022 Arthralgia of multiple joints 12/23/2022 Controlled REM sleep behavior disorder 12/23/2022 Daytime somnolence 12/23/2022 Eczema 12/23/2022 History of continuous positive airway pressure (CPAP) therapy at home 12/23/2022 HLA B27 (HLA B27 positive) 12/23/2022 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 Anxiety, mild 12/23/2022 Depression, major, recurrent, mild (CMS/HCC) 12/23/2022 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 90 tablet 3 cholecalciferol, vitamin D3, 10 mcg (400 unit) capsule Take by mouth once daily. DULoxetine (Cymbalta) [address] capsule Take 1 capsule (30 mg) by mouth in the morning and 1 capsule (30 mg) in the evening and 1 capsule (30 mg) before bedtime. 90 capsule 3 hydroxychloroquine (Plaquenil) 200 mg tablet Take 1 tablet (200 mg) by mouth once daily. 90 tablet 3 tadalafil (Cialis) 5 mg tablet Take 1 tablet (5 mg) by mouth once daily. 90 tablet 1 hydrOXYzine HCL (Atarax) 25 mg tablet Take 1 tablet (25 mg) by mouth 3 times a day as needed for anxiety. 90 tablet 3 No current facility-administered medications for this encounter. Past Surgical History: has a past surgical history that includes Ankle surgery (04/12/2014); Other surgical history (02/14/2018); and Other surgical history (02/14/2018). Recent sedation/surgery (24 hours) No Review of Systems: Please check all that apply: No significant medical history NPO guidelines met: Yes Physical Exam Airway Mallampati: I TM distance: <3 FB Neck ROM: full Cardiovascular - normal exam Dental - normal exam Pulmonary - normal exam Plan ASA 1 Deep documented in this encounter [facility] Work Phone: 10-25-2023 Note Formatting of this n ote is different from the original. Patient: Arnaldo Barry Pre-sedation Evaluation: Sedation necessary for: Analgesia Requesting service: gi History of Present Illness: screening colonoscopy Past Medical History: Diagnosis Date Abnormal levels of other serum enzymes 12/20/2014 Elevated liver enzymes Adjustment disorder with depressed mood 07/31/2020 Grief reaction Ankylosing spondylitis of multiple sites in spine (CMS/HCC) Anxiety Cellulitis of unspecified finger 08/02/2015 Cellulitis of finger Depression Encounter for follow-up examination after completed treatment for conditions other than malignant neoplasm 08/02/2020 Hospital discharge follow-up Fracture of unspecified carpal bone, left wrist, initial encounter for closed fracture 01/25/2018 Wrist fracture, left Nasal congestion 03/12/2022 Complaint of nasal congestion Other bursitis of knee, unspecified knee 11/18/2020 Suprapatellar bursitis Other conditions influencing health status 06/03/2021 History of cough Other hypersomnia 07/20/2018 Excessive daytime sleepiness Pain in left knee 11/18/2020 Acute pain of left knee Pain in unspecified finger(s) 08/02/2015 Finger pain Personal history of diseases of the blood and blood-forming organs and certain disorders involving the immune mechanism 01/02/2015 History of anemia Personal history of other diseases of the musculoskeletal system and connective tissue 09/12/2014 History of muscle spasm Personal history of other diseases of the musculoskeletal system and connective tissue 09/12/2014 History of neck pain Personal history of other endocrine, nutritional and metabolic disease 06/27/2019 History of obesity Personal history of other mental and behavioral disorders 11/30/2014 History of depression Personal history of other specified conditions 03/04/2020 History of fatigue Personal history of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 [facility] Work Phone: 07-02-2021 History of Present illness Narrative Initial Fall Risk Screening:ARNALDO has not fallen in the last 6 months. His fall did not result in injury. ARNALDO does not have a fear of falling. He does not need assistance with sitting, standing or walking. Does not need assistance walking in his home. He does not need assistance in an unfamiliar setting. The patient is not using an assistive device. [facility] Work Phone: 05-27-2021 History of Present illness Narrative PHQ-9 Depression Scale:1. Little interest or pleasure in doing things - several days2. Feeling down, depressed or hopeless - not at all3. Trouble falling asleep or sleeping too much - more than half the days4. Feeling tired or having little energy - more than half the days5. Poor appetite or overeating - not at all6. Feeling bad about self or failure or letting others down - not at all7. Trouble concentrating on things - more than half the days8. Moving / speaking slowly or fidgety / restless - not at all9. Thought would be better off or hurting self - not at allSeverity of depression is mild, total score: 7.How difficult have these problems made it for you to do your work, take care of things at home, or get along with people? Somewhat difficult.General Anxiety Disorder SCORE: 7.1. Feeling nervous, anxious, or on edge: Several2. Unable to stop worrying: Several3. Worrying too much about different things: Several4. Problems relaxing: Several5. Feeling restless or unable to sit still: None6. Feeling irritable or easily annoyed: 7 or more7. Being afraid that something awful might happen: Nonept here for acute ov- c/o abdominal pain /left side painpt had LUQ pain 3 days ago- sharp , positional- worse with stretchingpt has been movingno feverocc coughbut also wants f/u anxiety, depression, PTSD, elevated BMIscales reviewed -[facility] Work Phone: 05-13-2021 History of Present illness Narrative Mr. Barry is a 40-year-old male with a PMH of HLA-B27 positive ankylosing spondylitis, bilateral plantar fasciitis, osteoarthritis, ANUPAM, remote fracture of clavicles, left ankle reconstructive surgery, PTSD/depression presenting to the clinic for follow-up. The patient has chronic pain in his low back, ankles, knees, elbows with morning stiffness 15 to 20 minutes and better with activity. 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 He has responded 60% improvement on Plaquenil which was started last year. He does take ibuprofen 200 mg 4 times daily as needed for pain which improves his symptoms. He has a history of bilateral plantar fasciitis with previous injection. He does have a on/off rash on his legs that is not scaly or plaque-like that response to triamcinolone cream and has not had that recently. He denies any history of Crohn's disease or ulcerative colitis. There is a family history of psoriasis in his mother. He denies any joint swelling. He denies any chest pain, dyspnea, fever, or chills. He denies any history of uveitis and has had a recent eye exam. He does have right third trigger finger.Current treatment-Plaquenil 200 mg daily-Topical triamcinolone cream-Vitamin D 800 units daily-Ibuprofen 200 mg 4 times daily [facility] [address] Work Phone: 05-13-2021 History of Present illness Narrative Mr. Barry is a 40-year-old male with a PMH of HLA-B27 positive ankylosing spondylitis, bilateral plantar fasciitis, osteoarthritis, ANUPAM, remote fracture of clavicles, left ankle reconstructive surgery, PTSD/depression presenting to the clinic for follow-up. The patient has chronic pain in his low back, ankles, knees, elbows with morning stiffness 15 to 20 minutes and better with activity. 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 He has responded 60% improvement on Plaquenil which was started last year. He does take ibuprofen 200 mg 4 times daily as needed for pain which improves his symptoms. He has a history of bilateral plantar fasciitis with previous injection. He does have a on/off rash on his legs that is not scaly or plaque-like that response to triamcinolone cream and has not had that recently. He denies any history of Crohn's disease or ulcerative colitis. There is a family history of psoriasis in his mother. He denies any joint swelling. He denies any chest pain, dyspnea, fever, or chills. He denies any history of uveitis and has had a recent eye exam. He does have right third trigger finger.Current treatment-Plaquenil 200 mg daily-Topical triamcinolone cream-Vitamin D 800 units daily-Ibuprofen 200 mg 4 times daily [facility] Work Phone: 04-17-2010 History of Present illness Narrative CONSULTATION REPORT NAME: Arnaldo Barry ROOM#: - AGE:27 ATTEND PHYS:Isaac Monteiro M.D. : 1980 CONSULT PHYS:Carri Zuluaga M.D. ADMIT DATE: 02/11/2008 DISCH. DATE:02/16/2008 PT TYPE:I PT SEX: M DATE OF CONSULTATION: 02/16/2008 REASON FOR CONSULTATION: Cellulitis/abscess. HISTORY: This is a 27-year-old patient admitted because of abscess over the scalp. The patient has been on Bactrim as an outpatient with no resolution of the symptoms. The patient was then admitted and I was asked to evaluate and help in his management. At the time of evaluation, his temperature is 98.3, pulse 102, respirations 20, blood pressure 110/70. CBC was normal with white count 12, hemoglobin 14.4, platelet count 274,000. His evaluations thus far have shown wound culture from the scalp has grown methicillin-resistant Staph aureus and patient is on vancomycin. No fever, no chills, no cough or congestion or shortness of breath. No headache. PAST HISTORY: Illnesses: Unremarkable. Medications on admission: 1) Bactrim, 2) Paxil. Personal, family and social history: The patient is , smoker. No family history of premature deaths or coronary artery disease. REVIEW OF SYSTEMS: Negative for 10 systems. PHYSICAL EXAM: GENERAL APPEARANCE: Alert, pleasant and cooperative. EYES: No pallor, no icterus. Extraocular movements are normal. CHEST: Clear to auscultation. CARDIOVASCULAR: Normal S1, S2, no S3 or S4. ABDOMEN: Soft, bowel sounds normal. : Normal. LYMPHATICS: No axillary, cervical or groin adenopathy. MUSCULOSKELETAL: Digits and nails are normal, no evidence of clubbing or cyanosis; gait and station are normal. SKIN: Multiple healing folliculitis over the scalp. NEUROLOGICAL: Alert; no focal neurological deficit. PSYCHIATRIC: The patient's judgment, insight, as well as orientation to time, place and person are normal. IMPRESSION: Recurrent folliculitis with methicillin-resistant Staph aureus. The patient will be discharged on the staphylococcal antibiotic. I believe Bactrim would be adequate and, if not, patient would likely benefit from Zyvox, above compatible with skin and soft tissue infection (SSTI) and is also compatible with virus called a primary skin infection with no complicating chronic skin disorder and it is nonnecrotizing and is localized. The vast majority of these are caused by community-acquired methicillin-resistant Staph aureus which he has. Many thanks. THIS IS AN ELECTRONICALLY VERIFIED REPORT 03/14/2008 09:30 AM: Carri Zuluaga M.D. Carri Zuluaga M.D. BD / as Dictated Date: 02/25/2008 Time: 08:26 PM Transcribed Date: 02/27/2008 Time: 10:23 PM VJob #: [id number] Document ID: [id number] COPY F documented in this encounter [facility] 04-17-2010 History of Present illness Narrative CONSULTATION REPORT NAME: Arnaldo Barry ROOM#:[id number] AGE:27 ATTEND PHYS:Isaac Monteiro M.D. : 1980 CONSULT PHYS:Miryam Henley M.D. ADMIT DATE: 02/10/2008 DISCH. DATE: PT TYPE:V PT SEX: M DATE OF CONSULTATION: 02/10/2008 REASON FOR CONSULTATION: Multiple posterior scalp and left knee abscesses. HISTORY: The patient is a 27-year-old gentleman who recently had noted multiple tender masses on his posterior scalp. He has had these in the past and has been able to pop then with resolution of the symptoms. He now presents with four abscesses on his posterior scalp. He was placed on Bactrim yesterday; however, they progressed. He was admitted by Dr. Monteiro for IV antibiotics and surgical drainage. He also has one on his left knee which has also started. This has slightly improved; however, it is still present. Medical history is significant for anxiety disorder. Surgical history includes ankle fracture. He has no allergies to medications. Current medications include Paxil and Bactrim. He does smoke tobacco. He denies alcohol use. PHYSICAL EXAMINATION: On exam, he is afebrile. Vital signs are stable. On his posterior scalp, he has four palpable abscesses with overlying skin breakdown. There is no necrosis. On his left knee, he has a similar erythematous area with a purulent plug. LABORATORY: White count 12. ASSESSMENT: A 27-year-old gentleman with multiple posterior scalp and left knee abscesses. PLAN: Will proceed with incision and drainage today at the bedside. He will continue the vancomycin and Cleocin. Will culture the fluid. Agree with the nasal swab to evaluate for MRSA carrier status. Lastly, I would like to thank Dr. Monteiro for this consultation. THIS IS AN ELECTRONICALLY VERIFIED REPORT 02/10/2008 05:34 PM: Miryam Henley M.D. Miryam Henley M.D. ROGER / Dictated Date: 02/10/2008 Time: 05:04 PM Transcribed Date: 02/10/2008 Time: 05:26 PM VJob #: [id number] Document ID: [id number] COPY documented in this encounter [facility] Chief complaint Narrative - Reported ARNALDO BARRY is here for an initial evaluation.Reason for Visit: Nightmare Disorder, ANUPAM, Hx PTSD, Panic Attacks.Appointment requested by: Dr. Grimes. [facility] [facility] Work Phone: Chief complaint Narrative - Reported ARNALDO BARRY is here for an initial evaluation.Reason for Visit: Nightmare Disorder, ANUPAM, Hx PTSD, Panic Attacks.Appointment requested by: Dr. Grimes. [facility] [employer] Work Phone: Chief complaint Narrative - Reported An interactive audio and video telecommunication system which permits real time communications between the patient (at the originating site) and provider (at the distant site) was utilized to provide this telehealth service.Cc of worsening anxiety [facility] [address] [place] Work Phone: Evaluation note No assessment inform ation available [facility] Work Phone: Evaluation note Diagnosis Depression, major, recurrent, in remission (CMS/HCC)- Primary Anxiety, mild Nightmare disorder Other dysfunctions of sleep stages or arousal from sleep Posttraumatic stress disorder Prediabetes Other abnormal glucose Screening for cholesterol level Panic attack Panic disorder without agoraphobia Ankylosing spondylitis, unspecified site of spine (CMS/HCC) HLA-B27 spondyloarthropathy Obstructive sleep apnea syndrome Obstructive sleep apnea (adult) (pediatric) Abnormal TSH Body mass index (BMI) of 35.0 to 35.9 Class 2 obesity due to excess calories without serious comorbidity with body mass index (BMI) of 35.0 to 35.9 in adult Rash Rash and other nonspecific skin eruption Locking finger joint documented in this encounter [facility] Work Phone: Evaluation note* Diagnosis Anxiety, mild- Primary Depression, major, recurrent, mild (CMS/HCC) Obstructive sleep apnea syndrome Obstructive sleep apnea (adult) (pediatric) Prediabetes Other abnormal glucose Posttraumatic stress disorder Depression, major, recurrent, in remission (CMS/HCC) Nightmare disorder Other dysfunctions of sleep stages or arousal from sleep Panic attack Panic disorder without agoraphobia Ankylosing spondylitis, unspecified site of spine (CMS/HCC) HLA-B27 spondyloarthropathy Abnormal TSH Body mass index (BMI) of 35.0 to 35.9 Class 2 obesity due to excess calories without serious comorbidity with body mass index (BMI) of 35.0 to 35.9 in adult documented in this encounter [facility] Work Phone: Evaluation note* Diagnosis Bright red blood per rectum- Primary Hemorrhage of rectum and anus Screening for colon cancer Special screening for malignant neoplasms, colon Erectile dysfunction, unspecified erectile dysfunction type Ankylosing spondylitis, unspecified site of spine (CMS/HCC) documented in this encounter [facility] Work Phone: Evaluation note* Diagnosis Screening for colon cancer- Primary Special screening for malignant neoplasms, colon documented in this encounter [facility] Work Phone: Evaluation note* Diagnosis Anxiety, mild- Primary Obstructive sleep apnea syndrome Obstructive sleep apnea (adult) (pediatric) Prediabetes Other abnormal glucose Posttraumatic stress disorder Abnormal TSH Depression, major, recurrent, in remission (CMS-HCC) Erectile dysfunction, unspecified erectile dysfunction type documented in this encounter [facility] Work Phone: Evaluation note* Diagnosis Bright red blood per rectum- Primary Hemorrhage of rectum and anus Screening for colon cancer Special screening for malignant neoplasms, colon Erectile dysfunction, unspecified erectile dysfunction type Ankylosing spondylitis, unspecified site of spine (Multi) Prediabetes Other abnormal glucose Depression, major, recurrent, in remission (CMS-HCC) Erectile dysfunction, unspecified erectile dysfunction type documented in this encounter [facility] Work Phone: Evaluation note* Diagnosis Bright red blood per rectum- Primary Hemorrhage of rectum and anus Screening for colon cancer Special screening for malignant neoplasms, colon Erectile dysfunction, unspecified erectile dysfunction type Ankylosing spondylitis, unspecified site of spine (Multi) Prediabetes Other abnormal glucose Depression, major, recurrent, in remission (CMS-HCC) Erectile dysfunction, unspecified erectile dysfunction type Acute deep vein thrombosis (DVT) of left lower extremity, unspecified vein (Multi)- Primary Hospital discharge follow-up Other follow-up examination Increased liver enzymes Other nonspecific abnormal serum enzyme levels documented in this encounter [facility] Work Phone: Evaluation note* Diagnosis Bright red blood per rectum- Primary Hemorrhage of rectum and anus Screening for colon cancer Special screening for malignant neoplasms, colon Erectile dysfunction, unspecified erectile dysfunction type Ankylosing spondylitis, unspecified site of spine (Multi) Prediabetes Other abnormal glucose Depression, major, recurrent, in remission (CMS-HCC) Erectile dysfunction, unspecified erectile dysfunction type Acute deep vein thrombosis (DVT) of left lower extremity, unspecified vein (Multi)- Primary Hospital discharge follow-up Other follow-up examination Increased liver enzymes Other nonspecific abnormal serum enzyme levels Acute deep vein thrombosis (DVT) of left lower extremity, unspecified vein (Multi) documented in this encounter [facility] Work Phone: Evaluation note* Diagnosis Bright red blood per rectum- Primary Hemorrhage of rectum and anus Screening for colon cancer Special screening for malignant neoplasms, colon Erectile dysfunction, unspecified erectile dysfunction type Ankylosing spondylitis, unspecified site of spine (Multi) Prediabetes Other abnormal glucose Depression, major, recurrent, in remission (CMS-HCC) Erectile dysfunction, unspecified erectile dysfunction type Acute deep vein thrombosis (DVT) of left lower extremity, unspecified vein (Multi)- Primary Hospital discharge follow-up Other follow-up examination Increased liver enzymes Other nonspecific abnormal serum enzyme levels Anticoagulation management encounter- Primary Encounter for therapeutic drug monitoring Acute deep vein thrombosis (DVT) of left lower extremity, unspecified vein (Multi) Family history of clotting disorder documented in this encounter [facility] Work Phone: Evaluation note* Diagnosis Bright red blood per rectum- Primary Hemorrhage of rectum and anus Screening for colon cancer Special screening for malignant neoplasms, colon Erectile dysfunction, unspecified erectile dysfunction type Ankylosing spondylitis, unspecified site of spine (Multi) Prediabetes Other abnormal glucose Depression, major, recurrent, in remission (CMS-HCC) Erectile dysfunction, unspecified erectile dysfunction type Acute deep vein thrombosis (DVT) of left lower extremity, unspecified vein- Primary Hospital discharge follow-up Other follow-up examination Increased liver enzymes Other nonspecific abnormal serum enzyme levels Prediabetes- Primary Other abnormal glucose Depression, major, recurrent, in remission ([facility]-H[facility]) Anxiety, mild Obstructive sleep apnea syndrome Obstructive sleep apnea (adult) (pediatric) Class 3 severe obesity due to excess calories without serious comorbidity with body mass index (BMI) of 40.0 to 44.9 in adult documented in this encounter [facility] Work Phone: History of Present illness Narrative* He notes that the lower back pain has been less intensively has intermittent exacerbations since starting the Cosentyx. He does note locking of the third digit of the right hand is become more significant recently. He has not noted any uveitis symptoms, a significant diarrhea or pain involving any of his other joints other than some discomfort in the left heel where he had prior surgery. * Examination shows the lungs, heart, abdomen, and extremities to be benign. Musculoskeletal examination did not show any joint effusions. There is mild tenderness in the posterior aspect of the left ankle without joint effusion. There is locking of the third digit of the right hand with the tiny nodule in the proximal aspect of the flexor tendon. * HLA-B27 positive ankylosing spondylitis, history of bilateral plantar fasciitis, obstructive sleep apnea, osteoarthritis, flexor tendinitis of the third digit on the right hand, remote bilateral clavicle fractures, PTSD. * He is to continue hydroxychloroquine 200 mg daily Cosentyx 150 mg subcutaneously every 4 weeks. He was given a local injection of triamcinolone 10 mg with 0.5 mL of 1% lidocaine to the flexor tendon of the third digit of the right hand. He is to return at the next available office appointment. [facility] [address] [facility] Work Phone: History of Present illness Narrative* pt is here for f/u anxiety, depression, prediabetes, PTSD, arthralgias, ANUPAM- mouth appliance * scales reviewed * ELMER- had 2 panic attacks , still poor sleep * on buproprion and duloxetine * does have friend with terminal cancer * Other medical specialists are involved in patient's care. * Dr Bashir- reviewed PN 10/17/21 * Any recent notes that were available were reviewed. * All conditions are monitored, evaluated and assessed regularly. * Patient is compliant with current treatment regimen/medications. * Patient is here with the complaint of panic attacks * has had two since wednesday * not sleeping well lately [facility] Work Phone: History of Present illness Narrative* pt is here for f/u anxiety, depression, prediabetes, PTSD, arthralgias, ANUPAM- mouth appliance * scales reviewed * ELMER- had 2 panic attacks , still poor sleep * on buproprion and duloxetine * does have friend with terminal cancer * Other medical specialists are involved in patient's care. * Dr Bashir- reviewed PN 10/17/21 * Any recent notes that were available were reviewed. * All conditions are monitored, evaluated and assessed regularly. * Patient is compliant with current treatment regimen/medications. * Patient is here with the complaint of panic attacks * has had two since wednesday * not sleeping well lately [facility] Work Phone: History of Present illness Narrative* pt is here for f/u anxiety, depression, prediabetes, PTSD, arthralgias, ANUPAM- mouth appliance * scales reviewed * ELMER- had 2 panic attacks , still poor sleep * on buproprion and duloxetine * does have friend with terminal cancer * Other medical specialists are involved in patient's care. * Dr Bashir- reviewed PN 10/17/21 * Any recent notes that were available were reviewed. * All conditions are monitored, evaluated and assessed regularly. * Patient is compliant with current treatment regimen/medications. * Patient is here with the complaint of panic attacks * has had two since wednesday * not sleeping well lately [facility] Work Phone: History of Present illness Narrative* Mr. Barry is a 41 y/o M with past psychiatric hx of major depressive disorder, PTSD and generalized anxiety with panic attacks who presents to clinic with cc of worsening anxiety and depressed mood.Pt is currently prescribed Wellbutrin 150mg PO XL, Cymbalta 90mg PO delayed release, Prazosin 1mg PO QHS. * On interview: Pt is alert, oriented and well engaged in interview. He reports feeling stressed all the time and constantly worries about anything and everything. He describes himself as always having been a worrier but his anxiety has become much worse in the past few months, with panic attacks.Pt reports his recent panic attack was yesterday. his current stressors include: busy work schedule, getting higher education and overall occupied with household responsibilities. When worried/anxious, he feels tension in his shoulders, legs, his heart races, with increased anger and sometimes he finds it difficult to breathe. His sleep is poor with difficulty staying asleep due to worrying and frequent wakening. He feels tired and irritable. He also reports hx of sleep terrors with reported symptoms of kicking, thrashing, harden to awake, and inconsolable at times. He also reports having no or little memory of the events the next morning. * He reports his depressive symptoms are well controlled with current medication regimen. he denies SI/HI/AVH, no paranoia or delusions reported. * I have personally reviewed the OARRS report for ARNALDO BARRY. I have considered the risks of abuse,dependence, addiction and diversion. [facility] [place] Work Phone: History of Present illness Narrative* Patient was seen today in the office to review his in lab polysomnogram. The results from those showed that he has a RDI of 17.9. His lowest oxygen saturation was 82% and he only spent 8 minutes lessthan or equal 88% during the entire study. I reviewed all the results with the patient and answeredall questions that he had to his satisfaction. We also talked about therapy which I recommended a APAP device and we also talked about local DME companies provided we can obtain a high- quality APAP machine. * 20 minutes of cgus-mm-hwbn time covering the above were spent with the patient. -Pulmonary Medicine-[address] Work Phone: History of Present illness Narrative* He continues to note morning stiffness and may have pain in various joints at different times. However the musculoskeletal pain is less intense than it had been previously. He has not noted any rashes or uveitis symptoms. He had a recent ophthalmology evaluation. * The lungs, heart, abdomen, and extremities are benign. The musculoskeletal examination shows preserved range of motion of upper and lower extremity joints without joint swelling. The Elidia test is 10 to 13 cm. * She has HLA-B27 positive ankylosing spondylitis, history of bilateral plantar fasciitis, osteoarthritis, obstructive sleep apnea, status post left ankle reconstruction, status post remote bilateral clavicle fractures, PTSD, depression. * He is to continue hydroxychloroquine 200 mg daily and Cosentyx 150 mg subcutaneously every 4 weeks.He is to have laboratory for ESR and CRP prior to next office visit. He is to return at the next available office appointment. [facility] [address] [facility] Work Phone: History of Present illness Narrative* pt is here for f/u anxiety, depression, PTSD, ANUPAM- no CPAP, prediabetes, nightmare d/o, panic attacks, elevated BMI , vit d * pt has been referred to psychiatrist- * reviewed PN- 12/09/21-Dr Moe- - per PN- considering stopping Wellbutrin if anxiety persists and considering starting Abilify- 2 mg daily ( max 15 mg daily) * on hydroxyzine for panic attacks * scales reviewed * ANUPAM/CPAP- managed by Pulm- Dr Sandy- reviewed PN 04/15/22 * reviewed PN Rheum Dr Bermudez 03/20/22 * due for labs -[facility] Work Phone: History of Present illness Narrative* pt is here for f/u anxiety, depression, PTSD, ANUPAM- no CPAP, prediabetes, nightmare d/o, panic attacks, elevated BMI , vit d * pt has no concerns at this time * pt is unsure of refills at this time * pt has been referred to psychiatrist- * reviewed PN- 12/09/21-Dr Moe-/Dr Parson- - per PN- considering stopping Wellbutrin if anxiety persists and considering starting Abilify- 2 mg daily ( max 15 mg daily) * on hydroxyzine for panic attacks * scales reviewed * ANUPAM/CPAP- managed by Puldeann- Dr Sandy- reviewed PN 04/15/22- not using CPAP machine * reviewed PN Rheum Dr Bermudez 03/20/22 * pt state sthat he stopped taking the cosentyx - too expensive * due for labs * started new job- 1 month ago- 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 Is 42 y.o.. male. Here for follow up office visit- HPI: Follow up for anxiety, depression, PTSD, Panic d/o, ANUPAM, Pt states that he has a prescription for a cream for the rash on his legs- seems to not be working Pt states that his middle finger on his rt hand locks up- states that dr bashir was giving him cortisone shot for his finger because it locks up- states that his finger will lock up and get stuck Scales reviewed Pt is doing well Due for lab Other medical specialists are involved in patient's care. Any recent notes that were available were reviewed. All conditions are monitored, evaluated and assessed regularly. Patient is compliant with current treatment regimen/medications. Specialists involved include: Dr Bashir- Rheum- manages ank spond- stable on current medications Dr Sandy- Puldeann REVIEW OF SYSTEMS: OBJECTIVE: Vitals: 12/28/22 1042 BP: 119/82 BP Location: Right arm Patient Position: Sitting BP Cuff Size: Large adult Pulse: 78 Resp: 16 Temp: 36.6 C (97.9 F) TempSrc: Temporal SpO2: 96% Weight: 115 kg (253 lb 6.4 oz) PHYSICAL: Patient is alert and oriented x 3 , NAD HEAD- normocephalic and atraumatic UKBR-ficfozbsbut-fyddgz, lids - normal EARS/NOSE- normal external exam NECK-supple,FROM CV- RRR without murmur PULM- CTA bilaterally, normal respiratory effort RESPIRATORY EFFORT- normal , no retractions or nasal flaring ABD- normoactive BS's EXT- no edema,NT SKIN- no abnormal skin lesions noted NEURO- no focal deficits PSYCH- pleasant, normal judgement and insight The number and complexity of problems addressed is considered moderate. The amount and/or complexity of data reviewed and analyzed is considered moderate. The risk of complications and/or morbidity/mortality of patient is considered moderate. Overall, this patient encounter is considered a moderaterisk visit. Patient's BMI is elevated. Plan- diet and exercise- BMI is elevated. Need to increase activity on a daily basis especially walking. Monitor total calories per day- decrease carbohydrates and fats. Goal - lose 1-2 pounds per week. Recommend 150 minutes of moderate-intensity exercise as tolerated per week and 2-3 days of resistance, flexibility, and neuromotor exercises per week. Normal BMI- 18.5-25 Overweight= BMI 26-29 Obese= BMI 30-39 Morbidly Obese = BMI >40 ASSESSMENT/PLAN: 1. Depression, major, recurrent, in remission (CMS/HCC) 2. Anxiety, mild 3. Nightmare disorder 4. Posttraumatic stress disorder 5. Prediabetes Hemoglobin A1C 6. Screening for cholesterol level Lipid Panel 7. Panic attack 8. Ankylosing spondylitis, unspecified site of spine (CMS/HCC) 9. HLA-B27 spondyloarthropathy 10. Obstructive sleep apnea syndrome 11. Abnormal TSH Thyroid Stimulating Hormone 12. Body mass index (BMI) of 35.0 to 35.9 13. Class 2 obesity due to excess calories without serious comorbidity with body mass index (BMI) of 35.0 to 35.9 in adult 14. Rash Referral to Dermatology 15. Locking finger joint Referral to Orthopaedic Surgery Orders Placed This Encounter Procedures Hemoglobin A1C Thyroid Stimulating Hormone Lipid Panel Referral to Dermatology Referral to Orthopaedic Surgery Follow with specialists as directed Continue medication Ordered lab Follow up in 6 months [facility] Work [facility]: Hospital Discharge instructions Additional Instructions Hold your prazosin while taking Paxlovid. Continue Tylenol or Motrin. Continue oral fluids for hydration. Take medication as prescribed. Return if any worsening respiratory symptoms.[facility] Work Phone: Reason for referral (narrative)* Consultation (Routine) - Authorized Specialty Diagnoses / Procedures Referred By Contac t Referred To Contact Primary Care Diagnoses Anxiety, mild Depression, major, recurrent, in remission (CMS/HCC) Nightmare disorder Posttraumatic stress disorder Prediabetes Panic attack Ankylosing spondylitis, unspecified site of spine (CMS/HCC) HLA-B27 spondyloarthropathy Obstructive sleep apnea syndrome Abnormal TSH Body mass index (BMI) of 35.0 to 35.9 Class 2 obesity due to excess calories without serious comorbidity with body mass index (BMI) of 35.0 to 35.9 in adult Procedures Follow Up In Advanced Primary Care - PCP Nadya Grimes MD [address] [place] [address], [facility] [address] [place] [address] Referral ID Status Reason Start Date Expiration Date V isits Requested Visits Authorized [id number] Authorized 12/28/2022 06/26/2023 1 1 * Consultation (Routine) - Authorized Specialty Diagnoses / Procedures Referred By Contac t Referred To Contact Orthopaedic Surgery / Orthopedic Surgery Diagnoses Locking finger joint Nadya Grimes MD [address] [place] [address], [address] [place] [address] Referral ID Status Reason Start Date Expiration Date Visits Requested Visits Authorized [id number] Authorized Consult and Treat 12/28/2022 06/26/2023 1 1 * Consultation (Routine) - Authorized Specialty Diagnoses / Procedures Referred By Contac t Referred To Contact Dermatology Diagnoses Rash Procedures [place] OFFICE/OUTPATIENT NEW HIGH MDM 60-74 MINUTES Nadya Grimes MD [address] [place] [address], [address] [place] [address] Referral ID Status Reason Start Date Expiration Date Visits Requested Visits Authorized [id number] Authorized Specialty Services Required 12/28/2022 06/26/2023 1 1 [facility] Work Phone: Reason for referral (narrative)* Consultation (Routine) - Authorized Specialty Diagnoses / Procedures Referred By Contac t Referred To Contact Primary Care Diagnoses Prediabetes Procedures Follow Up In Advanced Primary Care - PCP - Established Nadya Grimes MD [address] [place] [address], [facility] [address] [place] [address] Referral ID Status Reason Start Date Expiration Date V isits Requested Visits Authorized [id number] Authorized 06/29/2023 06/28/2024 1 1 [facility] Work Phone: reason for referral (narrative)* Consultation (Routine) - Authorized Specialty Diagnoses / Procedures Referred By Contac t Referred To Contact Primary Care Diagnoses Prediabetes Procedures Follow Up In Advanced Primary Care - PCP - Established Nadya Grimes MD [address] [facility], [facility] [address] [place] [address] Referral ID Status Reason Start Date Expiration Date V isits Requested Visits Authorized [id number] Authorized 12/29/2023 12/28/2024 1 1 [facility] Work Phone: reason for referral (narrative)* Consultation (Routine) - Authorized Specialty Diagnoses / Procedures Referred By Contac t Referred To Contact Primary Care Diagnoses Prediabetes Procedures Follow Up In Advanced Primary Care - PCP - Established Nadya Grimes MD [address] [place] [address], [facility] [address] [place] [address] Referral ID Status Reason Start Date Expiration Date V isits Requested Visits Authorized [id number] Authorized 06/20/2024 06/20/2025 1 1 [facility] Work Phone: reason for visit Narrative* Consultation (Routine) - Authorized Specialty Diagnoses / Procedures Referred By Contac t Referred To Contact Vascular Surgery Diagnoses Acute deep vein thrombosis (DVT) of left lower extremity, unspecified vein (Multi) Fred Medina MD [address] [facility], [facility] [address] [place] [address] Phone: tel: fax: Referral ID Status Reason Start Date Expiration Date Visits Requested Visits Authorized [id number] Authorized Specialty Services Required 09/03/2025 1 1 [facility] Work Phone: Reason for visit Narrative* Consultation (Routine) - Authorized Specialty Diagnoses / Procedures Referred By Contac t Referred To Contact Diagnoses Acute deep vein thrombosis (DVT) of left lower extremity, unspecified vein (Multi) Damaris Ansari, CERTIFED 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 OPERATOR-BOILER CONTROL TECHNICIAN, DNP [address] [facility] [address] [place] [address] Phone: tel: fax: Referral ID Status Reason Start Date Expiration Date Visits Requested Visits Authorized [id number] Authorized Specialty Services Required 2024 2025 1 1 [facility] Work Phone: Summary Purpose Family History No Family History Records Found Grandmother Name Dates Details Family history of Status:Active Family history of lung cance r(V16.1, Z80.1) Status:Active Grandmother Name Dates Details Family history of Status:Active Family history of lung cance r(V16.1, Z80.1) Status:Active great grandfather Name Dates Details Family history of Status:Active Family history of lung cance r(V16.1, Z80.1) Status:Active great grandfather Name Dates Details Family history of Status:Active Family history of lung cance r(V16.1, Z80.1) Status:Active Mother Name Dates Details Family history of Mitral christina ve problem(394.9, I05.9) Status:Active Family history of deep venou s thrombosis(V17.49, Z82.49) Status:Active Grandmother Name Dates Details Family history of (7 99.9, R99) Status:Active Family history of lung cance r(V16.1, Z80.1) Status:Active Grandmother Name Dates Details Family history of (7 99.9, R99) Status:Active Family history of lung cance r(V16.1, Z80.1) Status:Active great grandfather Name Dates Details Family history of (7 99.9, R99) Status:Active Family history of lung cance r(V16.1, Z80.1) Status:Active great grandfather Name Dates Details Family history of (7 99.9, R99) Status:Active Family history of lung cance r(V16.1, Z80.1) Status:Active Grandparent Name Dates Details Family history of Alcohol ab use by father(V19.8, Z81.1) Status:Active Mother Name Dates Details Family history of Mitral christina ve problem(394.9, I05.9) Status:Active Family history of deep venou s thrombosis(V17.49, Z82.49) Status:Active Father Name Dates Details Family history of Alcohol ab use by father(V19.8, Z81.1) Status:Active Grandmother Name Dates Details Family history of (7 99.9, R99) Status:Active Family history of lung cance r(V16.1, Z80.1) Status:Active Grandmother Name Dates Details Family history of (7 99.9, R99) Status:Active Family history of lung cance r(V16.1, Z80.1) Status:Active great grandfather Name Dates Details Family history of (7 99.9, R99) Status:Active Family history of lung cance r(V16.1, Z80.1) Status:Active great grandfather Name Dates Details Family history of (7 99.9, R99) Status:Active Family history of lung cance r(V16.1, Z80.1) Status:Active Grandparent Name Dates Details Family history of Alcohol ab use by father(V19.8, Z81.1) Status:Active Mother Name Dates Details Family history of Mitral christina ve problem(394.9, I05.9) Status:Active Family history of deep venou s thrombosis(V17.49, Z82.49) Status:Active Father Name Dates Details Family history of Alcohol ab use by father(V19.8, Z81.1) Status:Active Grandmother Name Dates Details Family history of (7 99.9, R99) Status:Active Family history of lung cance r(V16.1, Z80.1) Status:Active Grandmother Name Dates Details Family history of (7 99.9, R99) Status:Active Family history of lung cance r(V16.1, Z80.1) Status:Active great grandfather Name Dates Details Family history of (7 99.9, R99) Status:Active Family history of lung cance r(V16.1, Z80.1) Status:Active great grandfather Name Dates Details Family history of (7 99.9, R99) Status:Active Family history of lung cance r(V16.1, Z80.1) Status:Active Grandparent Name Dates Details Family history of Alcohol ab use by father(V19.8, Z81.1) Status:Active Mother Name Dates Details Family history of Mitral christina ve problem(394.9, I05.9) Status:Active Family history of deep venou s thrombosis(V17.49, Z82.49) Status:Active Father Name Dates Details Family history of Alcohol ab use by father(V19.8, Z81.1) Status:Active Grandmother Name Dates Details Family history of (7 99.9, R99) Status:Active Family history of lung cance r(V16.1, Z80.1) Status:Active Grandmother Name Dates Details Family history of (7 99.9, R99) Status:Active Family history of lung cance r(V16.1, Z80.1) Status:Active great grandfather Name Dates Details Family history of (7 99.9, R99) Status:Active Family history of lung cance r(V16.1, Z80.1) Status:Active great grandfather Name Dates Details Family history of (7 99.9, R99) Status:Active Family history of lung cance r(V16.1, Z80.1) Status:Active Grandparent Name Dates Details Family history of Alcohol ab use by father(V19.8, Z81.1) Status:Active Mother Name Dates Details Family history of Mitral christina ve problem(394.9, I05.9) Status:Active Family history of deep venou s thrombosis(V17.49, Z82.49) Status:Active Father Name Dates Details Family history of Alcohol ab use by father(V19.8, Z81.1) Status:Active Unknown Family Member Name Dates Details : Maternal Grandmoth er, Paternal Grandmother, Maternal Great Grandfather, Paternal Great Grandfather Status:Active Family history of lung cance r: Maternal Grandmother, Paternal Grandmother, Maternal Great Grandfather, Paternal Great Grandfather(V16.1, Z80.1) Status:Active Mitral valve problem: Mother Status:Active Family history of deep venou s thrombosis: Mother(V17.49, Z82.49) Status:Active Alcohol abuse by father: Fat her, Grandparent Status:Active Unknown Family Member Name Dates Details : Maternal Grandmoth er, Paternal Grandmother, Maternal Great Grandfather, Paternal Great Grandfather Status:Active Family history of lung cance r: Maternal Grandmother, Paternal Grandmother, Maternal Great Grandfather, Paternal Great Grandfather(V16.1, Z80.1) Status:Active Mitral valve problem: Mother Status:Active Family history of deep venou s thrombosis: Mother(V17.49, Z82.49) Status:Active Alcohol abuse by father: Fat her, Grandparent Status:Active Unknown Family Member Name Dates Details : Maternal Grandmoth er, Paternal Grandmother, Maternal Great Grandfather, Paternal Great Grandfather Status:Active Family history of lung cance r: Maternal Grandmother, Paternal Grandmother, Maternal Great Grandfather, Paternal Great Grandfather(V16.1, Z80.1) Status:Active Mitral valve problem: Mother Status:Active Family history of deep venou s thrombosis: Mother(V17.49, Z82.49) Status:Active Alcohol abuse by father: Fat her, Grandparent Status:Active Unknown Family Member Name Dates Details : Maternal Grandmoth er, Paternal Grandmother, Maternal Great Grandfather, Paternal Great Grandfather Status:Active Family history of lung cance r: Maternal Grandmother, Paternal Grandmother, Maternal Great Grandfather, Paternal Great Grandfather(V16.1, Z80.1) Status:Active Mitral valve problem: Mother Status:Active Family history of deep venou s thrombosis: Mother(V17.49, Z82.49) Status:Active Alcohol abuse by father: Fat her, Grandparent Status:Active Unknown Family Member Name Dates Details : Maternal Grandmoth er, Paternal Grandmother, Maternal Great Grandfather, Paternal Great Grandfather Status:Active Family history of lung cance r: Maternal Grandmother, Paternal Grandmother, Maternal Great Grandfather, Paternal Great Grandfather(V16.1, Z80.1) Status:Active Mitral valve problem: Mother Status:Active Family history of deep venou s thrombosis: Mother(V17.49, Z82.49) Status:Active Alcohol abuse by father: Fat her, Grandparent Status:Active Unknown Family Member Name Dates Details : Maternal Grandmoth er, Paternal Grandmother, Maternal Great Grandfather, Paternal Great Grandfather Status:Active Family history of lung cance r: Maternal Grandmother, Paternal Grandmother, Maternal Great Grandfather, Paternal Great Grandfather(V16.1, Z80.1) Status:Active Mitral valve problem: Mother Status:Active Family history of deep venou s thrombosis: Mother(V17.49, Z82.49) Status:Active Alcohol abuse by father: Fat her, Grandparent Status:Active Unknown Family Member Name Dates Details : Maternal Grandmoth er, Paternal Grandmother, Maternal Great Grandfather, Paternal Great Grandfather Status:Active Family history of lung cance r: Maternal Grandmother, Paternal Grandmother, Maternal Great Grandfather, Paternal Great Grandfather(V16.1, Z80.1) Status:Active Mitral valve problem: Mother Status:Active Family history of deep venou s thrombosis: Mother(V17.49, Z82.49) Status:Active Alcohol abuse by father: Fat her, Grandparent Status:Active Unknown Family Member Name Dates Details : Maternal Grandmoth er, Paternal Grandmother, Maternal Great Grandfather, Paternal Great Grandfather Status:Active Family history of lung cance r: Maternal Grandmother, Paternal Grandmother, Maternal Great Grandfather, Paternal Great Grandfather(V16.1, Z80.1) Status:Active Mitral valve problem: Mother Status:Active Family history of deep venou s thrombosis: Mother(V17.49, Z82.49) Status:Active Alcohol abuse by father: Fat her, Grandparent Status:Active Unknown Family Member Name Dates Details : Maternal Grandmoth er, Paternal Grandmother, Maternal Great Grandfather, Paternal Great Grandfather Status:Active Family history of lung cance r: Maternal Grandmother, Paternal Grandmother, Maternal Great Grandfather, Paternal Great Grandfather(V16.1, Z80.1) Status:Active Mitral valve problem: Mother Status:Active Family history of deep venou s thrombosis: Mother(V17.49, Z82.49) Status:Active Alcohol abuse by father: Fat her, Grandparent Status:Active Unknown Family Member Name Dates Details : Maternal Grandmoth er, Paternal Grandmother, Maternal Great Grandfather, Paternal Great Grandfather Status:Active Family history of lung cance r: Maternal Grandmother, Paternal Grandmother, Maternal Great Grandfather, Paternal Great Grandfather(V16.1, Z80.1) Status:Active Mitral valve problem: Mother Status:Active Family history of deep venou s thrombosis: Mother(V17.49, Z82.49) Status:Active Alcohol abuse by father: Fat her, Grandparent Status:Active Unknown Family Member Name Dates Details : Maternal Grandmoth er, Paternal Grandmother, Maternal Great Grandfather, Paternal Great Grandfather Status:Active Family history of lung cance r: Maternal Grandmother, Paternal Grandmother, Maternal Great Grandfather, Paternal Great Grandfather(V16.1, Z80.1) Status:Active Mitral valve problem: Mother Status:Active Family history of deep venou s thrombosis: Mother(V17.49, Z82.49) Status:Active Alcohol abuse by father: Fat her, Grandparent Status:Active Unknown Family Member Name Dates Details : Maternal Grandmoth er, Paternal Grandmother, Maternal Great Grandfather, Paternal Great Grandfather Status:Active Family history of lung cance r: Maternal Grandmother, Paternal Grandmother, Maternal Great Grandfather, Paternal Great Grandfather(V16.1, Z80.1) Status:Active Mitral valve problem: Mother Status:Active Family history of deep venou s thrombosis: Mother(V17.49, Z82.49) Status:Active Alcohol abuse by father: Fat her, Grandparent Status:Active Unknown Family Member Name Dates Details : Maternal Grandmoth er, Paternal Grandmother, Maternal Great Grandfather, Paternal Great Grandfather Status:Active Family history of lung cance r: Maternal Grandmother, Paternal Grandmother, Maternal Great Grandfather, Paternal Great Grandfather(V16.1, Z80.1) Status:Active Mitral valve problem: Mother Status:Active Family history of deep venou s thrombosis: Mother(V17.49, Z82.49) Status:Active Alcohol abuse by father: Fat her, Grandparent Status:Active Unknown Family Member Name Dates Details : Maternal Grandmoth er, Paternal Grandmother, Maternal Great Grandfather, Paternal Great Grandfather Status:Active Family history of lung cance r: Maternal Grandmother, Paternal Grandmother, Maternal Great Grandfather, Paternal Great Grandfather(V16.1, Z80.1) Status:Active Mitral valve problem: Mother Status:Active Family history of deep venou s thrombosis: Mother(V17.49, Z82.49) Status:Active Alcohol abuse by father: Fat her, Grandparent Status:Active Unknown Family Member Name Dates Details : Maternal Grandmoth er, Paternal Grandmother, Maternal Great Grandfather, Paternal Great Grandfather Status:Active Family history of lung cance r: Maternal Grandmother, Paternal Grandmother, Maternal Great Grandfather, Paternal Great Grandfather(V16.1, Z80.1) Status:Active Mitral valve problem: Mother Status:Active Family history of deep venou s thrombosis: Mother(V17.49, Z82.49) Status:Active Alcohol abuse by father: Fat her, Grandparent Status:Active Unknown Family Member Name Dates Details : Maternal Grandmoth er, Paternal Grandmother, Maternal Great Grandfather, Paternal Great Grandfather Status:Active Family history of lung cance r: Maternal Grandmother, Paternal Grandmother, Maternal Great Grandfather, Paternal Great Grandfather(V16.1, Z80.1) Status:Active Mitral valve problem: Mother Status:Active Family history of deep venou s thrombosis: Mother(V17.49, Z82.49) Status:Active Alcohol abuse by father: Fat her, Grandparent Status:Active Unknown Family Member Name Dates Details : Maternal Grandmoth er, Paternal Grandmother, Maternal Great Grandfather, Paternal Great Grandfather Status:Active Family history of lung cance r: Maternal Grandmother, Paternal Grandmother, Maternal Great Grandfather, Paternal Great Grandfather(V16.1, Z80.1) Status:Active Mitral valve problem: Mother Status:Active Family history of deep venou s thrombosis: Mother(V17.49, Z82.49) Status:Active Alcohol abuse by father: Fat her, Grandparent Status:Active Unknown Family Member Name Dates Details : Maternal Grandmoth er, Paternal Grandmother, Maternal Great Grandfather, Paternal Great Grandfather Status:Active Family history of lung cance r: Maternal Grandmother, Paternal Grandmother, Maternal Great Grandfather, Paternal Great Grandfather(V16.1, Z80.1) Status:Active Mitral valve problem: Mother Status:Active Family history of deep venou s thrombosis: Mother(V17.49, Z82.49) Status:Active Alcohol abuse by father: Fat her, Grandparent Status:Active Unknown Family Member Name Dates Details : Maternal Grandmoth er, Paternal Grandmother, Maternal Great Grandfather, Paternal Great Grandfather Status:Active Family history of lung cance r: Maternal Grandmother, Paternal Grandmother, Maternal Great Grandfather, Paternal Great Grandfather(V16.1, Z80.1) Status:Active Mitral valve problem: Mother Status:Active Family history of deep venou s thrombosis: Mother(V17.49, Z82.49) Status:Active Alcohol abuse by father: Fat her, Grandparent Status:Active Unknown Family Member Name Dates Details : Maternal Grandmoth er, Paternal Grandmother, Maternal Great Grandfather, Paternal Great Grandfather Status:Active Family history of lung cance r: Maternal Grandmother, Paternal Grandmother, Maternal Great Grandfather, Paternal Great Grandfather(V16.1, Z80.1) Status:Active Mitral valve problem: Mother Status:Active Family history of deep venou s thrombosis: Mother(V17.49, Z82.49) Status:Active Alcohol abuse by father: Fat her, Grandparent Status:Active Unknown Family Member Name Dates Details : Maternal Grandmoth er, Paternal Grandmother, Maternal Great Grandfather, Paternal Great Grandfather Status:Active Family history of lung cance r: Maternal Grandmother, Paternal Grandmother, Maternal Great Grandfather, Paternal Great Grandfather(V16.1, Z80.1) Status:Active Mitral valve problem: Mother Status:Active Family history of deep venou s thrombosis: Mother(V17.49, Z82.49) Status:Active Alcohol abuse by father: Fat her, Grandparent Status:Active Unknown Family Member Name Dates Details : Maternal Grandmoth er, Paternal Grandmother, Maternal Great Grandfather, Paternal Great Grandfather Status:Active Family history of lung cance r: Maternal Grandmother, Paternal Grandmother, Maternal Great Grandfather, Paternal Great Grandfather(V16.1, Z80.1) Status:Active Mitral valve problem: Mother Status:Active Family history of deep venou s thrombosis: Mother(V17.49, Z82.49) Status:Active Alcohol abuse by father: Fat her, Grandparent Status:Active Unknown Family Member Name Dates Details : Maternal Grandmoth er, Paternal Grandmother, Maternal Great Grandfather, Paternal Great Grandfather Status:Active Family history of lung cance r: Maternal Grandmother, Paternal Grandmother, Maternal Great Grandfather, Paternal Great Grandfather(V16.1, Z80.1) Status:Active Mitral valve problem: Mother Status:Active Family history of deep venou s thrombosis: Mother(V17.49, Z82.49) Status:Active Alcohol abuse by father: Fat her, Grandparent Status:Active Unknown Family Member Name Dates Details : Maternal Grandmoth er, Paternal Grandmother, Maternal Great Grandfather, Paternal Great Grandfather Status:Active Family history of lung cance r: Maternal Grandmother, Paternal Grandmother, Maternal Great Grandfather, Paternal Great Grandfather(V16.1, Z80.1) Status:Active Mitral valve problem: Mother Status:Active Family history of deep venou s thrombosis: Mother(V17.49, Z82.49) Status:Active Alcohol abuse by father: Fat her, Grandparent Status:Active Unknown Family Member Name Dates Details : Maternal Grandmoth er, Paternal Grandmother, Maternal Great Grandfather, Paternal Great Grandfather Status:Active Family history of lung cance r: Maternal Grandmother, Paternal Grandmother, Maternal Great Grandfather, Paternal Great Grandfather(V16.1, Z80.1) Status:Active Mitral valve problem: Mother Status:Active Family history of deep venou s thrombosis: Mother(V17.49, Z82.49) Status:Active Alcohol abuse by father: Fat her, Grandparent Status:Active Unknown Family Member Name Dates Details : Maternal Grandmoth er, Paternal Grandmother, Maternal Great Grandfather, Paternal Great Grandfather Status:Active Family history of lung cance r: Maternal Grandmother, Paternal Grandmother, Maternal Great Grandfather, Paternal Great Grandfather(V16.1, Z80.1) Status:Active Mitral valve problem: Mother Status:Active Family history of deep venou s thrombosis: Mother(V17.49, Z82.49) Status:Active Alcohol abuse by father: Fat her, Grandparent Status:Active Unknown Family Member Name Dates Details : Maternal Grandmoth er, Paternal Grandmother, Maternal Great Grandfather, Paternal Great Grandfather Status:Active Family history of lung cance r: Maternal Grandmother, Paternal Grandmother, Maternal Great Grandfather, Paternal Great Grandfather(V16.1, Z80.1) Status:Active Mitral valve problem: Mother Status:Active Family history of deep venou s thrombosis: Mother(V17.49, Z82.49) Status:Active Alcohol abuse by father: Fat her, Grandparent Status:Active Unknown Family Member Name Dates Details Alcohol abuse by father: Fat her, Grandparent Status:Active Family history of deep venou s thrombosis: Mother(V17.49, Z82.49) Status:Active Mitral valve problem: Mother Status:Active Family history of lung cance r: Maternal Grandmother, Paternal Grandmother, Maternal Great Grandfather, Paternal Great Grandfather(V16.1, Z80.1) Status:Active : Maternal Grandmoth er, Paternal Grandmother, Maternal Great Grandfather, Paternal Great Grandfather Status:Active Unknown Family Member Name Dates Details : Maternal Grandmoth er, Paternal Grandmother, Maternal Great Grandfather, Paternal Great Grandfather Status:Active Family history of lung cance r: Maternal Grandmother, Paternal Grandmother, Maternal Great Grandfather, Paternal Great Grandfather(V16.1, Z80.1) Status:Active Mitral valve problem: Mother Status:Active Family history of deep venou s thrombosis: Mother(V17.49, Z82.49) Status:Active Alcohol abuse by father: Fat her, Grandparent Status:Active Unknown Family Member Name Dates Details : Maternal Grandmoth er, Paternal Grandmother, Maternal Great Grandfather, Paternal Great Grandfather Status:Active Family history of lung cance r: Maternal Grandmother, Paternal Grandmother, Maternal Great Grandfather, Paternal Great Grandfather(V16.1, Z80.1) Status:Active Mitral valve problem: Mother Status:Active Family history of deep venou s thrombosis: Mother(V17.49, Z82.49) Status:Active Alcohol abuse by father: Fat her, Grandparent Status:Active Unknown Family Member Name Dates Details : Maternal Grandmoth er, Paternal Grandmother, Maternal Great Grandfather, Paternal Great Grandfather Status:Active Family history of lung cance r: Maternal Grandmother, Paternal Grandmother, Maternal Great Grandfather, Paternal Great Grandfather(V16.1, Z80.1) Status:Active Mitral valve problem: Mother Status:Active Family history of deep venou s thrombosis: Mother(V17.49, Z82.49) Status:Active Alcohol abuse by father: Fat her, Grandparent Status:Active Unknown Family Member Name Dates Details Alcohol abuse by father: Fat her, Grandparent Status:Active Family history of deep venou s thrombosis: Mother(V17.49, Z82.49) Status:Active Mitral valve problem: Mother Status:Active Family history of lung cance r: Maternal Grandmother, Paternal Grandmother, Maternal Great Grandfather, Paternal Great Grandfather(V16.1, Z80.1) Status:Active : Maternal Grandmoth er, Paternal Grandmother, Maternal Great Grandfather, Paternal Great Grandfather Status:Active Unknown Family Member Name Dates Details Alcohol abuse by father: Fat her, Grandparent Status:Active Family history of deep venou s thrombosis: Mother(V17.49, Z82.49) Status:Active Mitral valve problem: Mother Status:Active Family history of lung cance r: Maternal Grandmother, Paternal Grandmother, Maternal Great Grandfather, Paternal Great Grandfather(V16.1, Z80.1) Status:Active : Maternal Grandmoth er, Paternal Grandmother, Maternal Great Grandfather, Paternal Great Grandfather Status:Active Unknown Family Member Name Dates Details : Maternal Grandmoth er, Paternal Grandmother, Maternal Great Grandfather, Paternal Great Grandfather Status:Active Family history of lung cance r: Maternal Grandmother, Paternal Grandmother, Maternal Great Grandfather, Paternal Great Grandfather(V16.1, Z80.1) Status:Active Mitral valve problem: Mother Status:Active Family history of deep venou s thrombosis: Mother(V17.49, Z82.49) Status:Active Alcohol abuse by father: Fat her, Grandparent Status:Active Unknown Family Member Name Dates Details : Maternal Grandmoth er, Paternal Grandmother, Maternal Great Grandfather, Paternal Great Grandfather Status:Active Family history of lung cance r: Maternal Grandmother, Paternal Grandmother, Maternal Great Grandfather, Paternal Great Grandfather(V16.1, Z80.1) Status:Active Mitral valve problem: Mother Status:Active Family history of deep venou s thrombosis: Mother(V17.49, Z82.49) Status:Active Alcohol abuse by father: Fat her, Grandparent Status:Active Unknown Family Member Name Dates Details : Maternal Grandmoth er, Paternal Grandmother, Maternal Great Grandfather, Paternal Great Grandfather Status:Active Family history of lung cance r: Maternal Grandmother, Paternal Grandmother, Maternal Great Grandfather, Paternal Great Grandfather(V16.1, Z80.1) Status:Active Mitral valve problem: Mother Status:Active Family history of deep venou s thrombosis: Mother(V17.49, Z82.49) Status:Active Alcohol abuse by father: Fat her, Grandparent Status:Active Unknown Family Member Name Dates Details : Maternal Grandmoth er, Paternal Grandmother, Maternal Great Grandfather, Paternal Great Grandfather Status:Active Family history of lung cance r: Maternal Grandmother, Paternal Grandmother, Maternal Great Grandfather, Paternal Great Grandfather(V16.1, Z80.1) Status:Active Mitral valve problem: Mother Status:Active Family history of deep venou s thrombosis: Mother(V17.49, Z82.49) Status:Active Alcohol abuse by father: Fat her, Grandparent Status:Active Unknown Family Member Name Dates Details : Maternal Grandmoth er, Paternal Grandmother, Maternal Great Grandfather, Paternal Great Grandfather Status:Active Family history of lung cance r: Maternal Grandmother, Paternal Grandmother, Maternal Great Grandfather, Paternal Great Grandfather(V16.1, Z80.1) Status:Active Mitral valve problem: Mother Status:Active Family history of deep venou s thrombosis: Mother(V17.49, Z82.49) Status:Active Alcohol abuse by father: Fat her, Grandparent Status:Active Advance Directives No Advanced Directives Records FoundDocuments on File Type Date Recorded 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 (a viral illness resulting in neurological symptoms, including paralysis) (/No): n * 2: Have you received a MMR, chickenpox (varicella), or any other live vaccines in the past 4 weeks?(/No): n * 3. Have you ever had an anaphylactic reaction to prior flu vaccines? (/No): n * Patient was provided a copy of the current Influenza Vaccine Information Sheet Follow up appointment.panic attackspanic attackspanic attacks* ARNALDO BARRY is here for a follow-up visit. * Reason for Visit: Sleep Study. * Appointment requested by: Dr. Grimes. * ARNALDO BARRY is here for a follow-up visit. * Reason for Visit: Sleep Study. * Appointment requested by: Dr. Grimes. * ARNALDO PO is here for a 3 week follow-up. * Reason for Visit: ANUPAM on APAP, setup date 02/17/22 with [facility]. * Appointment requested by: Dr. Aurora Grimes. * ARNALDO PO is here for a 3 week follow-up. * Reason for Visit: ANUPAM on APAP, setup date 02/17/22 with [facility]. * Appointment requested by: Dr. Aurora Grimes. * ARNALDO BARRY is here for a 1 month follow-up. * Reason for Visit: ANUPAM on APAP. * Appointment requested by: Dr. Grimes. * ARNALDO BARRY is here for a 1 month follow-up. * Reason for Visit: ANUPAM on APAP. * Appointment requested by: Dr. Grimes. * ARNALDO BARRY is here for a 1 month follow-up. * Reason for Visit: ANUPAM on APAP. * Appointment requested by: Dr. Grimes. pt presents for f/u depression Chief Complaint and Reason for Visit Chief Complaint COUGH, SOB Reason for Referral Specialty Diagnoses / Procedures Referred By Contac t Referred To Contact Gastroenterology Diagnoses Screening for colon cancer Procedures Colonoscopy Screening; Average Risk Patient [place] COLONOSCOPY FLX DX W/COLLJ SPEC WHEN PFRMD [place] COLON CA SCRN NOT HI RSK IND [place] COLORECTAL SCRN; HI RISK IND [place] COLONOSCOPY W/BIOPSY SINGLE/MULTIPLE [place] COLSC FLX W/RMVL OF TUMOR POLYP LESION SNARE TQ [place] COLSC FLX W/REMOVAL LESION BY HOT BX FORCEPS Luzma Santo MD [address] [facility], [place] [address] Referral ID Status Reason Start Date Expiration Date V isits Requested Visits Authorized [id number] Pending Review 09/10/2023 09/09/2024 1 1 Referral ID Status Reason Start Date Expiration Date V isits Requested Visits Authorized [id number] Authorized 09/10/2023 09/09/2024 1 1 Additional Source Comments (unrecognized sect ion and content) No Status Records FoundNo Status Records FoundNo Status Records FoundNo Status Records FoundNo Status Records FoundNo Status Records FoundNo Status Records FoundNo Status Records FoundNo Status Records Found INFORMATION SOURCE (unrecogn ized section and content) DATE CREATED AUTHOR 02/23/2018 [facility] [employer] DATE CREATED AUTHOR AUTHOR'S ORGANIZ ATION 03/29/2020 [facility] DATE CREATED AUTHOR AUTHOR'S ORGANIZ ATION 06/29/2022 [employer] DATE CREATED AUTHOR AUTHOR'S ORGANIZ ATION 04/02/2023 [facility] DATE CREATED AUTHOR AUTHOR'S ORGANIZ ATION 08/23/2024 [facility] DATE CREATED AUTHOR AUTHOR'S ORGANIZ ATION 09/25/2024 [employer] [facility] DATE CREATED AUTHOR AUTHOR'S ORGANIZ ATION 11/28/2024 [facility] DATE CREATED AUTHOR AUTHOR'S ORGANIZ ATION 11/29/2024 [facility] DATE CREATED AUTHOR AUTHOR'S ORGANIZ ATION 02/13/2025 [facility] Comments (unrecognize d section and content) In the event this informatio n is protected by the Federal Confidentiality of Alcohol and Drug Abuse Patient Records regulations: The Federal rules restrict any use of the information to criminally investigate or prosecute any alcohol or drug abuse patient.[facility] the event this information is protected by the Federal Confidentiality of Alcohol and Drug Abuse Patient Records regulations: The Federal rules restrict any use of the information to criminally investigate or prosecute any alcohol or drug abuse patient[facility] Goals (unrecognized section and content) Goals may be documented in a n alternate section Reason for Visit (unrecogniz ed section and content) Reason Comments Follow-up Specialty Diagnoses / Procedures Referred By Contac t Referred To Contact Primary Care Diagnoses Prediabetes Procedures Follow Up In [facility] - PCP - Established Nadya Grimes MD [address] [facility], [address] [address] Referral ID Status Reason Start Date Expiration Date V isits Requested Visits Authorized [id number] Authorized 12/29/2023 12/28/2024 1 1 Reason Comments Follow-up Reason Comments Follow-up Anxiety Depression Specialty Diagnoses / Procedures Referred By Didierac t Referred To Contact Primary Care Diagnoses Anxiety, mild Depression, major, recurrent, in remission ([facility]) Nightmare disorder Posttraumatic stress disorder Prediabetes Panic attack Ankylosing spondylitis, unspecified site of spine ([facility]) HLA-B27 spondyloarthropathy Obstructive sleep apnea syndrome Abnormal TSH Body mass index (BMI) of 35.0 to 35.9 Class 2 obesity due to excess calories without serious comorbidity with body mass index (BMI) of 35.0 to 35.9 in adult Procedures Follow Up In [facility] - PCP Nadya Grimes MD [address] [place] [address], [address] [address] Referral ID Status Reason Start Date Expiration Date Visits Re quested Visits Authorized [id number] Closed 12/28/2022 06/26/2023 1 1 Reason Comments Rectal Bleeding Rectal bleeding yest erday Specialty Diagnoses / Procedures Referred By Didierac t Referred To Contact Gastroenterology Diagnoses Screening for colon cancer Procedures Colonoscopy Screening; Average Risk Patient [place] COLONOSCOPY FLX DX W/COLLJ SPEC WHEN PFRMD [place] COLON CA SCRN NOT HI RSK IND [place] COLORECTAL SCRN; HI RISK IND IL COLONOSCOPY W/BIOPSY SINGLE/MULTIPLE [place] COLSC FLX W/RMVL OF TUMOR POLYP LESION SNARE TQ [place] COLSC FLX W/REMOVAL LESION BY HOT BX FORCEPS Luzma Santo MD [address] [place] [address], [address] [address] Referral ID Status Reason Start Date Expiration Date V isits Requested Visits Authorized [id number] Authorized 09/10/2023 09/09/2024 1 1 Reason Comments Follow-up Anxiety Depression PTSD (Post-Traumatic Stress Disorder) Sleep Apnea Prediabetes Referral ID Status Reason Start Date Expiration Date V isits Requested Visits Authorized [id number] Authorized 06/29/2023 06/28/2024 1 1 Reason Comments Hospital Follow-up His leg is still bot juliana him Specialty Diagnoses / Procedures Referred By Contac t Referred To Contact Primary Care Diagnoses Prediabetes Procedures Follow Up In [facility] - PCP - Established Nadya Grimes MD [address] [place] [address] [address] [place] [address] Phone: tel: fax: Referral ID Status Reason Start Date Expiration Date V isits Requested Visits Authorized [id number] Authorized 06/20/2024 06/20/2025 1 1 Care Teams (unrecognized sec tion and content) Collator Relationship Specialty Start Date End Date Nadya Grimes MD [address] [facility], [address] [place] [address] PCP - General 12/03/17 Collator Relationship Specialty Start Date End Date Nadya Grimes MD [address] [facility], [address] [place] [address] PCP - General 12/03/17 Nadya Grimes MD [address] [facility], [address] [place] [address] PCP - Vdia BOYERO PCP 02/04/23 [place] Sandy DO [address] [facility] [address] [place] [address] Consulting Physician Pulmonary Disease 06/28/23 Mason Bermudez MD [address] [facility] [address] [place] [address] Consulting Physician Rheumatology 06/28/23 Emiliano Lee MD [address] [facility] [address] [place] [address] Referring Physician Orthopaedic Surgery 06/28/23 Collator Relationship Specialty Start Date End Date Nadya Grimes MD [address] [facility], [address] [place] [address] PCP - General 12/03/17 Nadya Grimes MD [address] [facility], [address] [place] [address] PCP - [place] [facility] PCP 02/04/23 Dillon Sandy DO [address] [facility], [address] [place] [address] Consulting Physician Pulmonary Disease 06/28/23 Mason Bermudez MD [address] [facility] [address] [place] [address] Consulting Physician Rheumatology 06/28/23 Emiliano Lee MD [address] [facility] [address] [place] [address] Referring Physician Orthopaedic Surgery 06/28/23 Collator Relationship Specialty Start Date End Date Nadya Grimes MD [address] [facility], [address] [place] [address] PCP - General 12/03/17 Nadya Grimes MD [address] [facility], [address] [place] [address] PCP - [place] [facility] PCP 02/04/23 Nadya Grimes MD [address] [facility], [address] [place] [address] PCP - [employer] [facility] PCP 06/06/23 Dlilon Sandy DO [address] [facility], [address] [place] [address] Consulting Physician Pulmonary Disease 06/28/23 Mason Bermudez MD [address] [place] [address] Consulting Physician Rheumatology 06/28/23 Emiliano Lee MD [address] [facility] [address] [place] [address] Referring Physician Orthopaedic Surgery 06/28/23 [place] [address] [facility] [place] [address] Surgeon Gastroenterology 10/25/23 Collator Relationship Specialty Start Date End Date Nadya Grimes MD [address] [facility], [address] [place] [address] PCP - General 12/03/17 Nadya Grimes MD [address] [facility], [address] [place] [address] PCP - [place] [facility] PCP 06/06/23 Dillon Sandy DO [address] [facility], [address] [place] [address] Consulting Physician Pulmonary Disease 06/28/23 Mason Bermudez MD [address] [place] [address] Consulting Physician Rheumatology 06/28/23 Emiliano Lee MD [address] [facility] [address] [place] [address] Referring Physician Orthopaedic Surgery 06/28/23 Semaj Fitzgerald MD [address] [place] [address], [address], [address] [place] [address] Surgeon Gastroenterology 10/25/23 Collator Relationship Specialty Start Date End Date Nadya Grimes MD [address] [facility], [address] [place] [address] PCP - General 12/03/17 Nadya Grimes MD [address] [facility], [address] [place] [address] PCP - [facility] PCP 12/06/23 Dillon Sandy DO [address] [facility], [address] [place] [address] Consulting Physician Pulmonary Disease 06/28/23 Mason Bermudez MD [address] [place] [address] Consulting Physician Rheumatology 06/28/23 Emiliano Lee MD [address] [facility] [address] [place] [address] Referring Physician Orthopaedic Surgery 06/28/23 Semaj Fitzgerald MD [address] [place] [address] Dr [facility] [address], [address] [place], [place] [id number] Surgeon Gastroenterology 10/25/23 Collator Relationship Specialty Start Date End Date Nadya Grimes MD [address] [facility], [address] [place] [address] PCP - General 12/03/17 Nadya Grimes MD [address] [facility], [address] [place] [address] PCP - [facility] PCP 12/06/23 Dillon Sandy DO [address] [facility], [address] [place] [address] Consulting Physician Pulmonary Disease 06/28/23 Mason Bermudez MD [address] [place] [address] Consulting Physician Rheumatology 06/28/23 Emiliano Lee MD [address] [facility] [address] [place], [place] [id number] Referring Physician Orthopaedic Surgery 06/28/23 Semaj Fitzgerald MD [address] [place] [address] Dr Rangel [facility], [address], [address] [place], [place] [id number] Surgeon Gastroenterology 10/25/23 Collator Relationship Specialty Start Date End Date Nadya Grimes MD [address] [facility], [address] [place], [place] [address] PCP - General 12/03/17 Nadya Grimes MD [address] [facility], [address] [place] [address] PCP - [facility] PCP 12/06/23 Dillon Sandy DO [address] [facility], [address] [place] [address] Consulting Physician Pulmonary Disease 06/28/23 Mason Bermudez MD [address] [facility] [address] [place] [address] Consulting Physician Rheumatology 06/28/23 Emiliano Lee MD [address] [facility] [address] [place] [address] Referring Physician Orthopaedic Surgery 06/28/23 [place] [address] [facility], [address], [address] [place] [address] Surgeon Gastroenterology 10/25/23 Collator Relationship Specialty Start Date End Date Nadya Grimes MD [address] [facility], [address] [place] [address] PCP - General 12/03/17 Nadya Grimes MD [address] [facility], [address] [place] [address] PCP - [facility] PCP 12/06/23 Dillon Sandy DO [address] [facility], [address] [place] [address] Consulting Physician Pulmonary Disease 06/28/23 Mason Bermudez MD [address] [place] [address] Consulting Physician Rheumatology 06/28/23 Emiliano Lee MD [address] [place] [address] Referring Physician Orthopaedic Surgery 06/28/23 [place] [address] [facility], [address], [address] [place] [address] Surgeon Gastroenterology 10/25/23 Collator Relationship Specialty Start Date End Date Nadya Grimes MD [address] [facility], [address] [place] [address] PCP - General 12/03/17 Nadya Grimes MD [address] [facility], [address] [place] [address] [facility] 12/06/23 Dillon Sandy DO [address] [facility], [address] [place] [address] Consulting Physician Pulmonary Disease 06/28/23 Mason Bermudez MD [address] [place] [address] Consulting Physician Rheumatology 06/28/23 Emiliano Lee MD [address] [place] [address] Referring Physician Orthopaedic Surgery 06/28/23 [place] [address] [facility], [address], [address] [place] [address] Surgeon Gastroenterology 10/25/23 FOR RECORDS PERTAINING TO PATIENTS WHO ARE OR HAVE BEEN ENROLLED IN A CHEMICAL DEPENDENCY/SUBSTANCEABUSE PROGRAM, SOME INFORMATION MAY BE OMITTED. This clinical summary was aggregated from multiple sources. Caution should be exercised in using it in the provision of clinical care. This summary normalizes information from multiple sources, and as a consequence, information in this document may materially change the coding, format and clinical context of patient data. In addition, data may be omitted in some cases. CLINICAL DECISIONS SHOULD BE BASED ON THE PRIMARY CLINICAL RECORDS. [employer] provides no warranty or guarantee of the accuracy or completeness of information in this document.
[2025-02-17] MEDS: 0.9% Normal Saline (1000mL) 1,000 ML 999 ML IV (19:32)
[2025-02-17 19:47] LABS: Troponin T High Sens 2 HR < 6 ng/L (<=22)
== END 2025-02-17 21:32 | disposition home or self-care (01) ==
PROVIDERS: Emergency Provider Emergency Medicine; PCP Family Medicine; Visit Provider Emergency Medicine
DX: R42 Dizziness and giddiness (principal); R55 Syncope and collapse; R07.89 Other chest pain; Z79.01 Long term (current) use of anticoagulants; Z86.718 Personal history of other venous thrombosis and embolism
CPT/HCPCS: 70496; 70498; 71045; 80048; 84484; 85025; 93005; 96360; 99284; Q9967; A4216